=== PATIENT | female | born 1935 | race Caucasian/White ===

== ENCOUNTER 2017-08-24 15:43 | Emergency (ER) | payer MEDICARE, MEDICAID ==
[2017-08-24 15:43] VITALS: BMI 30.4
--- NOTE | 2017-08-24 17:05 | C.PDOC ---
History Of Present Illness 81 y/o female sent to ED by PMD for evaluation unknown reasons. Pt complaints of back pain, dizziness, and frequent falls. Patient is a poor historian. Denies urinary symptoms, headache, chest pain, shortness of breath, or fever. Time Seen by Provider: 08/24/17 16:28 Chief Complaint (Nursing): Medical Clearance History Per: Patient History/Exam Limitations: no limitations Onset/Duration Of Symptoms: Days Current Symptoms Are (Timing): Still Present Reports Recently: Treated By A Physician Recent travel outside of the [place]: No Additional History Per: Patient Past Medical History Reviewed: Historical Data, Nursing Documentation, Vital Signs Vital Signs: Last Vital Signs Temp 98.5 F 08/24/17 20:10 Pulse 74 08/24/17 20:10 Resp 18 08/24/17 20:10 BP 148/68 08/24/17 20:10 Pulse Ox 98 08/24/17 20:10 - Medical History PMH: Arthritis, HTN, Hypercholesterolemia Denies: Chronic Kidney Disease Comment Only: Anemia (hgb is low 9.5) Surgical History: Denies: Pacemaker - [facility] Procedures ANESTH INJECT-SPIN CANAL (06/03/15) HOME MANAGEMENT TREATMENT (06/15/16) INJECT STEROID (06/03/15) LUMBOSAC SPINE X-RAY NEC (06/03/15) ROM & JT MOBILITY TREATMENT OF MUSCULOSK LOW BACK/LE (06/15/16) SPINAL CANAL INJECT NEC (06/03/15) Family History: States: Unknown Family Hx - Social History Hx Tobacco Use: No Hx Alcohol Use: No Hx Substance Use: No - Immunization History Hx Tetanus Toxoid Vaccination: No Hx Influenza Vaccination: No Hx Pneumococcal Vaccination: No Review Of Systems Except As Marked, All Systems Reviewed And Found Negative. Constitutional: Negative for: Fever, Chills Cardiovascular: Negative for: Chest Pain, Palpitations Respiratory: Negative for: Cough, Shortness of Breath Gastrointestinal: Negative for: Nausea, Vomiting, Abdominal Pain Genitourinary: Negative for: Dysuria, Frequency, Hematuria Musculoskeletal: Positive for: Back Pain. Negative for: Neck Pain Neurological: Positive for: Dizziness. Negative for: Weakness, Numbness, Headache Physical Exam - Physical Exam Appears: Non-toxic, No Acute Distress Skin: Normal Color, Warm, Dry Head: Atraumatic, Normacephalic Eye(s): bilateral: Normal Inspection Nose: Normal Oral Mucosa: Dry Neck: Supple Chest: Symmetrical Cardiovascular: Rhythm Regular, No Murmur Respiratory: Normal Breath Sounds, No Rales, No Rhonchi, No Wheezing Gastrointestinal/Abdominal: Soft, Tenderness (RUQ, (+)Mack's), No Guarding, No Rebound Back: No CVA Tenderness, No Vertebral Tenderness, No Paraspinal Tenderness Extremity: Normal ROM Neurological/Psych: Oriented x3, Normal Speech ED Course And Treatment - Laboratory Results Result Diagrams: 08/24/17 18:54 08/24/17 18:54 O2 Sat by Pulse Oximetry: 98 (RA) Pulse Ox Interpretation: Normal Progress Note: Blood work ordered and reviewed. Disposition - Disposition Disposition: HOME/ ROUTINE Disposition Time: 19:20 Condition: GOOD Additional Instructions: Thank you for letting us take care of you today. Your provider was Dr. Munoz. You were treated for abnormal blood work. The emergency medical care you received today was directed at your acute symptoms. If you were prescribed any medication, please fill it and take as directed. It may take several days for your symptoms to resolve. Return to the Emergency Department if your symptoms worsen, do not improve, or if you have any other problems. Please contact your doctor or call one of the physicians/clinics you have been referred to that are listed on the Patient Visit Information form that is included in your discharge packet. Bring any paperwork you were given at discharge with you along with any medications you are taking to your follow up visit. Our treatment cannot replace ongoing medical care by a primary care provider (PCP) outside of the emergency department. Thank you for allowing the [facility] team to be part of your care today. Follow up with your doctor in 2-3 days. Instructions: Chronic Kidney Disease (ED) - Clinical Impression Clinical Impression: Chronic kidney disease (CKD) - Scribe Statement The provider has reviewed the documentation as recorded by the Naboribkai Kiser All medical record entries made by the Naboribkai were at my direction and personally dictated by me. I have reviewed the chart and agree that the record accurately reflects my personal performance of the history, physical exam, medical decision making, and the department course for this patient. I have also personally directed, reviewed, and agree with the discharge instructions and disposition.
[2017-08-24 19:07] LABS: POTASSIUM 4.1 mmol/L (3.6-5.2)
[2017-08-24 19:09] LABS: ALB/GLOB RATIO 1.3 (1.0-2.1); BILIRUBIN,TOTAL 0.6 mg/dL (0.2-1.3); TOTAL PROTEIN 7.3 g/dL (6.3-8.3)
[2017-08-24 19:10] LABS: CALCIUM 9.8 mg/dl (8.6-10.4)
[2017-08-24 19:13] LABS: BASO % 0.4 % (0.0-2.0); EOS # 0.2 K/uL (0.0-0.7); EOS % 2.8 % (0.0-4.0); LYMPH # 2.2 K/uL (1.0-4.3); LYMPH % 31.2 % (20.0-40.0); MEAN CORPUSCULAR HEMOGLOBIN 30.8 pg (27.0-31.0); MEAN PLATELET VOLUME 12.1 fL (7.2-11.7); MONO # 0.4 K/uL (0.0-0.8); MONO % 5.8 % (0.0-10.0); NRBC % 0.1 % (0.0-2.0); RED CELL DISTRIBUTION WIDTH 16.3 % (11.5-14.5); WHITE BLOOD COUNT 7.2 K/uL (4.8-10.8)
[2017-08-24 19:16] VITALS: RESP 18
[2017-08-24 20:13] VITALS: BP 148/68; PULSE 74; TEMP 98.5; O2SAT 98
== END 2017-08-24 20:13 | disposition home or self-care (01) ==
LOC: C.ER 15:43
DX: I12.9 Hypertensive chronic kidney disease with stage 1 through stage 4 chronic kidney disease, or unspecified chronic kidney disease (principal); N18.9 Chronic kidney disease, unspecified; E78.00 Pure hypercholesterolemia, unspecified; M19.90 Unspecified osteoarthritis, unspecified site

== ENCOUNTER 2017-08-31 16:00 | Inpatient (IN) | payer MEDICARE, MEDICAID ==
[2017-08-31 16:00] VITALS: BMI 30.4
[2017-08-31 17:43] LABS: BASO % 0.6 % (0.0-2.0); EOS # 0.2 K/uL (0.0-0.7); EOS % 3.7 % (0.0-4.0); HEMATOCRIT 29.4 % (34.0-47.0); LYMPH # 1.8 K/uL (1.0-4.3); LYMPH % 27.5 % (20.0-40.0); MEAN CELL VOLUME 87.7 fL (81.0-99.0); MEAN CORPUSCULAR HEMOGLOBIN 29.6 pg (27.0-31.0); MEAN CORPUSCULAR HGB CONC 33.7 g/dL (33.0-37.0); MONO # 0.4 K/uL (0.0-0.8); MONO % 5.6 % (0.0-10.0); NRBC % 0.1 % (0.0-2.0); RED CELL DISTRIBUTION WIDTH 16.3 % (11.5-14.5); WHITE BLOOD COUNT 6.7 K/uL (4.8-10.8)
[2017-08-31 17:52] LABS: POTASSIUM 4.2 mmol/L (3.6-5.2)
[2017-08-31 17:54] LABS: BILIRUBIN,TOTAL 0.6 mg/dL (0.2-1.3)
[2017-08-31 17:55] LABS: ALB/GLOB RATIO 1.4 (1.0-2.1); TOTAL PROTEIN 7.2 g/dL (6.3-8.3)
[2017-08-31 17:56] LABS: CALCIUM 9.5 mg/dl (8.6-10.4)
[2017-08-31 18:09] LABS: TROPONIN I 0.029 ng/mL (0.00-0.120)
[2017-08-31] MEDS ORDERED: Sodium Chloride 0.9% 1,000 ML IV ONE (18:21)
--- NOTE | 2017-08-31 18:47 | RAD ---
PROCEDURE: CHEST RADIOGRAPH, 1 VIEW HISTORY: Renal failure COMPARISON: 06/12/2016 FINDINGS: LUNGS: Clear. PLEURA: No pneumothorax or pleural fluid seen. CARDIOVASCULAR: Normal. OSSEOUS STRUCTURES: No significant abnormalities. VISUALIZED UPPER ABDOMEN: Normal. OTHER FINDINGS: None. IMPRESSION: No active disease.
[2017-08-31] MEDS ORDERED: Sodium Chloride 0.9% 1,000 ML ONE (19:04)
[2017-08-31 19:06] LABS: RBC URINE < 1 /hpf (0-3); URINE BACTERIA RARE (<OCC); URINE BILIRUBIN NEGATIVE (NEGATIVE); URINE BLOOD NEGATIVE (NEGATIVE); URINE COLOR Straw (YELLOW); URINE GLUCOSE (UA) NORMAL (Normal); URINE KETONE NEGATIVE (NEGATIVE); URINE LEUKOCYTE ESTERASE NEG Leu/uL (Negative); URINE PROTEIN NEGATIVE (NEGATIVE); URINE UROBILINOGEN NORMAL mg/dL (0.2-1.0); WBC URINE < 1 /hpf (0-5)
--- NOTE | 2017-08-31 19:38 | C.PDOC ---
History Of Present Illness Pt was instructed by her Medical Accounting Clerk Dr. Bobo to come to the ED in order to be admitted for worsening renal function. Pt was seen in this ED on 2016 but was erroneously discharged home. Pt was instructed to return to the ED again today. Time Seen by Provider: 08/31/17 16:45 Chief Complaint (Nursing): Abnormal Labs History Per: Patient, Family (Son) Onset/Duration Of Symptoms: Days Current Symptoms Are (Timing): Still Present Severity: Moderate Reports Recently: Treated By A Physician Additional History Per: Prior Records Past Medical History Reviewed: Historical Data, Nursing Documentation, Vital Signs Vital Signs: Last Vital Signs Temp 97.6 F 08/31/17 16:03 Pulse 86 08/31/17 16:03 Resp 18 08/31/17 16:03 BP 143/97 H 08/31/17 16:03 Pulse Ox 100 08/31/17 16:03 - Medical History PMH: Anemia (hgb is low 9.5), Arthritis, HTN, Hypercholesterolemia, Chronic Kidney Disease - [facility] Procedures ANESTH INJECT-SPIN CANAL (06/03/15) HOME MANAGEMENT TREATMENT (06/15/16) INJECT STEROID (06/03/15) LUMBOSAC SPINE X-RAY NEC (06/03/15) ROM & JT MOBILITY TREATMENT OF MUSCULOSK LOW BACK/LE (06/15/16) SPINAL CANAL INJECT NEC (06/03/15) Family History: States: Unknown Family Hx - Social History Hx Tobacco Use: No Hx Alcohol Use: No Hx Substance Use: No - Immunization History Hx Tetanus Toxoid Vaccination: No Hx Influenza Vaccination: No Hx Pneumococcal Vaccination: No Review Of Systems Except As Marked, All Systems Reviewed And Found Negative. Constitutional: Positive for: Weakness, Malaise. Negative for: Fever Cardiovascular: Negative for: Chest Pain Respiratory: Negative for: Cough, Shortness of Breath, Hemoptysis Gastrointestinal: Negative for: Vomiting, Abdominal Pain Genitourinary: Negative for: Dysuria, Hematuria Musculoskeletal: Negative for: Neck Pain Skin: Negative for: Rash Neurological: Negative for: Weakness, Numbness Physical Exam - Physical Exam Appears: No Acute Distress Skin: Normal Color, Warm, Dry Head: Atraumatic, Normacephalic Eye(s): bilateral: PERRL, EOMI Oral Mucosa: Dry Neck: Normal ROM, Supple Cardiovascular: Rhythm Regular Respiratory: Normal Breath Sounds, No Accessory Muscle Use Gastrointestinal/Abdominal: Soft, No Tenderness Back: No CVA Tenderness Extremity: Normal ROM Neurological/Psych: Oriented x3, Normal Motor, Normal Sensation ED Course And Treatment - Laboratory Results Result Diagrams: 08/31/17 17:34 08/31/17 17:34 Lab Interpretation: Abnormal Interpretation Of Abnormal: Elevated BUN/Cr. Anemia. ECG: Interpreted By Me, Viewed By Me ECG Rhythm: Sinus Rhythm ECG Interpretation: No Acute Changes Rate From EC O2 Sat by Pulse Oximetry: 100 Pulse Ox Interpretation: Normal - Radiology CXR: Viewed By Me, Read By Radiologist CXR Interpretation: Yes: No Acute Disease - Physician Consult Information Physician Contacted: Therese Hamilton (Renal) Outcome Of Conversation: She is covering Dr. Bobo. She wants pt to be admitted and they will consult. Progress - Interventions Interventions:: Observation, Intravenous fluid - Data Reviewed Data Reviewed: Lab, Diagnostic imaging, EKG, Old records - Continuity of Care Discussed patient case with:: Patient, Family-HIPPA compliant, ED Nurse, On- call PMD-pt unassigned Discussed pt. case with healthcare economics consultant/specialty: Nephrology - Patient Plan Patient Plan: Admission Disposition Discussed With : Ross Schultz Comment: He accepted pt on hospitalist service as pt's PMD is Dr. Ahmadi. Doctor Will See Patient In The: Hospital Counseled Patient/Family Regarding: Studies Performed, Diagnosis - Disposition Disposition: HOSPITALIZED Disposition Time: 19:41 Condition: SERIOUS - Clinical Impression Clinical Impression: Uremia, Worsening renal function
--- NOTE | 2017-08-31 19:43 | CP.PCM.HP ---
<Lpue Melendez - Last Filed: 08/31/17 20:32> History of Present Illness - History of Present Illness History of Present Illness: Medicine Note for Hospitalist Service CC: Sent in by kidney doctor HPI: [id number] with PMHx of CKD Stage 4, HTN, HLD, and Chronic LBP presents to the ED after being counseled by her executive vice president business development. Patient follows with Dr. Bobo as an outpatient. She had recent blood work 2-3 weeks ago and was told to come to the hospital due to her worsening kidney function. Patient admits to fatigue, weakness, swelling in her lower extremities bilaterally. Denied fever, chills, headache, SOB, chest pain, abdominal pain, n/v/d/c, or urinary symptoms. PMHx: CKD Stage 4, HTN, HLD, Chronic LBP PSHx: Denied Meds: As per MAR, reviewed All: NKDA SHx: Denied any tobacco, alcohol, or illicit drug use FHx: Unremarkable PMD: Dr. Ahmadi Nephro: Dr. Bobo Present on Admission - Present on Admission Any Indicators Present on Admission: No Past Patient History - Past Medical History & Family History Past Medical History?: Yes - Past Social History Smoking Status: Never Smoked - CARDIAC Hx Hypercholesterolemia: Yes Hx Hypertension: Yes - PULMONARY Hx Respiratory Disorders: No - NEUROLOGICAL Hx Paralysis: No - HEENT Hx HEENT Problems: No - RENAL Hx Chronic Kidney Disease: Yes - ENDOCRINE/METABOLIC Hx Endocrine Disorders: No - HEMATOLOGICAL/ONCOLOGICAL Hx Anemia: Yes (hgb is low 9.5) - INTEGUMENTARY Hx Dermatological Problems: No - MUSCULOSKELETAL/RHEUMATOLOGICAL Hx Arthritis: Yes - GENITOURINARY/GYNECOLOGICAL Hx Genitourinary Disorders: No - PSYCHIATRIC Hx Substance Use: No - SURGICAL HISTORY Hx Surgeries: No - ANESTHESIA Hx Anesthesia: No Meds Allergies/Adverse Reactions: Allergies Allergy/AdvReac Type Severity Reaction Status Date / Time No Known Allergies Allergy Verified 08/31/17 16:06 Physical Exam - Constitutional Appears: No Acute Distress - Head Exam Head Exam: NORMAL INSPECTION, NORMOCEPHALIC - Eye Exam Eye Exam: EOMI, Normal appearance, PERRL Pupil Exam: NORMAL ACCOMODATION - ENT Exam ENT Exam: Mucous Membranes Moist, Normal Exam - Respiratory Exam Respiratory Exam: Clear to Auscultation Bilateral, NORMAL BREATHING PATTERN. absent: Decreased Breath Sounds, Wheezes - Cardiovascular Exam Cardiovascular Exam: REGULAR RHYTHM, RRR, +S1, +S2 - GI/Abdominal Exam GI & Abdominal Exam: Normal Bowel Sounds, Soft. absent: Distended, Tenderness - Rectal Exam Rectal Exam: Deferred - Extremities Exam Extremities exam: Positive for: normal inspection, pedal edema (+1), pedal pulses present. Negative for: tenderness - Neurological Exam Neurological exam: Alert, Oriented x3 - Psychiatric Exam Psychiatric exam: Normal Affect, Normal Mood - Skin Skin Exam: Dry, Intact, Normal Color, Warm Results - Vital Signs Recent Vital Signs: Last Vital Signs Temp 97.6 F 08/31/17 16:03 Pulse 86 08/31/17 16:03 Resp 18 08/31/17 16:03 BP 143/97 H 08/31/17 16:03 Pulse Ox 100 08/31/17 19:40 - Labs Result Diagrams: 08/31/17 17:34 08/31/17 17:34 Labs: Laboratory Results - last 24 hr 08/31/17 08/31/17 08/31/17 17:34 17:34 18:56 WBC 6.7 RBC 3.35 L Hgb 9.9 L Hct 29.4 L MCV 87.7 MCH 29.6 MCHC 33.7 RDW 16.3 H Plt Count 137 MPV 11.0 Neut % (Auto) 62.6 Lymph % (Auto) 27.5 Hartley % (Auto) 5.6 Eos % (Auto) 3.7 Baso % (Auto) 0.6 Neut # 4.2 Lymph # 1.8 Hartley # 0.4 Eos # 0.2 Baso # 0.0 Sodium 138 Potassium 4.2 Chloride 101 Carbon Dioxide 26 Anion Gap 16 BUN 80 H Creatinine 3.0 H Est GFR ( Amer) 18 Est GFR (Non-Af Amer) 15 Random Glucose 82 Calcium 9.5 Total Bilirubin 0.6 AST 37 H ALT 28 Alkaline Phosphatase 66 Troponin I 0.0290 NT-Pro-B Natriuret Pep 881 Total Protein 7.2 Albumin 4.2 Globulin 3.0 Albumin/Globulin Ratio 1.4 Urine Color Straw Urine Clarity Clear Urine pH 5.0 Ur Specific [place] 1.010 Urine Protein Negative Urine Glucose (UA) Normal Urine Ketones Negative Urine Blood Negative Urine Nitrate Negative Urine Bilirubin Negative Urine Urobilinogen Normal Ur Leukocyte Esterase Neg Urine WBC (Auto) < 1 Urine RBC (Auto) < 1 Ur Squamous Epith Cells < 1 Urine Bacteria Rare Assessment & Plan - Assessment and Plan (Free Text) Plan: Stage 4 Chronic Kidney Disease * Nephrology consulted- Dr. Hamilton - help appreciated * Baseline creatine 2.0, with GFR - 20-30s * Currently creatine 3.0 with GFR 15-20s * Continued home medications: Renvela 800mg PO ACTID Anemia of Chronic Disease * 2/2 to CKD * Baseline hemoglobin is 9-10 * Currently stable, continue to monitor * F/U anemia workup Hx HTN * ECHO (03/2016): LVEF 80% with mild MR, pulm HTN * Holter Monitor (03/2016): performed 2/ syncope and dizziness - NSR with moments of bradycardia. Short runs of atrial tachycardia at 102 * HHD * Continued home medications: Coreg 25mg PO BID, Cozaar 50mg PO daily Hx HLD * Continued home medications: Lovasa, Crestor 5mg PO QHS * F/U Lipid panel, hga1c Hx of Gout * Continued home medications: Allopurinol 200mg PO daily Prophylactic Measures * GI PPX: Protonix 40mg PO daily * DVT PPX: Lovenox 30SC daily, SCDs * HHD * PT Al Goodson Dr., DO, PGY1 <Ross Schultz - Last Filed: 09/01/17 06:23> Results - Vital Signs Recent Vital Signs: Last Vital Signs Temp 97.9 F 09/01/17 00:10 Pulse 69 09/01/17 00:10 Resp 18 09/01/17 00:10 BP 149/68 09/01/17 00:10 Pulse Ox 98 09/01/17 00:10 - Labs Result Diagrams: 08/31/17 17:34 08/31/17 17:34 Labs: Laboratory Results - last 24 hr 08/31/17 08/31/17 08/31/17 17:34 17:34 18:56 WBC 6.7 RBC 3.35 L Hgb 9.9 L Hct 29.4 L MCV 87.7 MCH 29.6 MCHC 33.7 RDW 16.3 H Plt Count 137 MPV 11.0 Neut % (Auto) 62.6 Lymph % (Auto) 27.5 Hartley % (Auto) 5.6 Eos % (Auto) 3.7 Baso % (Auto) 0.6 Neut # 4.2 Lymph # 1.8 Hartley # 0.4 Eos # 0.2 Baso # 0.0 Sodium 138 Potassium 4.2 Chloride 101 Carbon Dioxide 26 Anion Gap 16 BUN 80 H Creatinine 3.0 H Est GFR ( Amer) 18 Est GFR (Non-Af Amer) 15 Random Glucose 82 Hemoglobin A1c Calcium 9.5 Total Bilirubin 0.6 AST 37 H ALT 28 Alkaline Phosphatase 66 Troponin I 0.0290 NT-Pro-B Natriuret Pep 881 Total Protein 7.2 Albumin 4.2 Globulin 3.0 Albumin/Globulin Ratio 1.4 Urine Color Straw Urine Clarity Clear Urine pH 5.0 Ur Specific [place] 1.010 Urine Protein Negative Urine Glucose (UA) Normal Urine Ketones Negative Urine Blood Negative Urine Nitrate Negative Urine Bilirubin Negative Urine Urobilinogen Normal Ur Leukocyte Esterase Neg Urine WBC (Auto) < 1 Urine RBC (Auto) < 1 Ur Squamous Epith Cells < 1 Urine Bacteria Rare Blood Type Antibody Screen 08/31/17 08/31/17 20:48 21:13 WBC RBC Hgb Hct MCV MCH MCHC RDW Plt Count MPV Neut % (Auto) Lymph % (Auto) Hartley % (Auto) Eos % (Auto) Baso % (Auto) Neut # Lymph # Hartley # Eos # Baso # Sodium Potassium Chloride Carbon Dioxide Anion Gap BUN Creatinine Est GFR ( Amer) Est GFR (Non-Af Amer) Random Glucose Hemoglobin A1c 5.2 Calcium Total Bilirubin AST ALT Alkaline Phosphatase Troponin I NT-Pro-B Natriuret Pep Total Protein Albumin Globulin Albumin/Globulin Ratio Urine Color Urine Clarity Urine pH Ur Specific [place] Urine Protein Urine Glucose (UA) Urine Ketones Urine Blood Urine Nitrate Urine Bilirubin Urine Urobilinogen Ur Leukocyte Esterase Urine WBC (Auto) Urine RBC (Auto) Ur Squamous Epith Cells Urine Bacteria Blood Type O POSITIVE Antibody Screen Negative Assessment & Plan - Date & Time Date: 09/01/17 (I have seen and examined the patient. I agree with the findings and plan of care as documented by Dr. Melendez. Patient with kidney disease. Consult to nephro. IVF. Monitor renal function and urinary output. Also with anemia. Check iron studies. Hemodynamically stable. Continue home meds for history of hypertension. Monitor for acute changes.) Time: 06:20 Attending/Attestation - Attestation I have personally seen and examined this patient.: Yes I have fully participated in the care of the patient.: Yes I have reviewed all pertinent clinical information: Yes
[2017-09-01 07:52] LABS: BASO % 0.8 % (0.0-2.0); EOS # 0.2 K/uL (0.0-0.7); EOS % 3.6 % (0.0-4.0); HEMATOCRIT 28.1 % (34.0-47.0); LYMPH # 1.6 K/uL (1.0-4.3); LYMPH % 28.1 % (20.0-40.0); MEAN CELL VOLUME 87.7 fL (81.0-99.0); MEAN CORPUSCULAR HEMOGLOBIN 29.8 pg (27.0-31.0); MEAN PLATELET VOLUME 11.7 fL (7.2-11.7); MONO # 0.4 K/uL (0.0-0.8); MONO % 7.6 % (0.0-10.0); NRBC % 0.1 % (0.0-2.0); WHITE BLOOD COUNT 5.8 K/uL (4.8-10.8)
[2017-09-01 08:07] LABS: CHLORIDE 105 mmol/L (98-107)
[2017-09-01 08:08] LABS: SODIUM 142 mmol/L (132-148)
[2017-09-01 08:09] LABS: IRON 56 ug/dL (37-170)
[2017-09-01 08:10] LABS: ALB/GLOB RATIO 1.2 (1.0-2.1); ALKALINE PHOSPHATASE 56 U/L (38-126); ALT/SGPT 28 U/L (9-52); AST/SGOT 30 U/L (14-36); BILIRUBIN,TOTAL 0.6 mg/dL (0.2-1.3); BLOOD UREA NITROGEN 62 mg/dL (7-17); CARBON DIOXIDE 26 mmol/L (22-30); CHOLESTEROL 97 mg/dL (0-199); GFR AFRICAN-AMERICAN 21; GLUCOSE,RANDOM 78 mg/dL (65-105); TOTAL PROTEIN 6.6 g/dL (6.3-8.3)
[2017-09-01 08:11] LABS: CALCIUM 9.4 mg/dl (8.6-10.4); PHOSPHOROUS 3.3 mg/dL (2.5-4.5)
[2017-09-01 08:16] VITALS: RESP 20
--- NOTE | 2017-09-01 08:40 | CP.PCM.PN ---
<Brittney Nelson V - Last Filed: 09/01/17 12:35> Objective - Vital Signs/Intake and Output Vital Signs (last 24 hours): Temp Pulse Resp BP Pulse Ox 98.0 F 64 20 151/58 H 99 09/01/17 08:15 09/01/17 08:15 09/01/17 08:15 09/01/17 10:17 09/01/17 08:15 - Medications Medications: Current Medications Allopurinol (Zyloprim) 200 mg PO DAILY [facility] Last Admin: 09/01/17 10:16 Dose: 200 mg Amlodipine Besylate (Norvasc) 5 mg PO DAILY [facility] Last Admin: 09/01/17 12:25 Dose: 5 mg Carvedilol (Coreg) 25 mg PO Q12 [facility] Last Admin: 09/01/17 10:17 Dose: 25 mg Famotidine (Pepcid) 20 mg PO DAILY [facility] Last Admin: 09/01/17 10:16 Dose: 20 mg Heparin Sodium (Porcine) (Heparin) 5,000 units SC Q12 [facility] Last Admin: 09/01/17 10:17 Dose: 5,000 units Sodium Chloride (Sodium Chloride 0.45%) 1,000 mls @ 75 mls/hr IV .[id number] [facility] Stop: 09/02/17 09:01 Last Admin: 09/01/17 10:16 Dose: 75 mls/hr [id number] Ethyl Esters (Lovaza) 2 gm PO BID [facility] Last Admin: 09/01/17 10:16 Dose: 2 gm Pneumococcal Polyvalent Vaccine (Pneumovax 23 Vaccine) 0.5 ml IM .ONCE ONE Stop: 09/02/17 10:01 Rosuvastatin Calcium (Crestor) 5 mg PO QPM [facility] Sevelamer Carbonate (Renvela) 800 mg PO ACTID [facility] Last Admin: 09/01/17 12:25 Dose: 800 mg - Labs Labs: 09/01/17 07:43 09/01/17 07:43 Attending/Attestation - Attestation I have personally seen and examined this patient.: Yes I have fully participated in the care of the patient.: Yes I have reviewed all pertinent clinical information, including history, physical exam and plan: Yes Notes (Text): Patient seen, examined, and case discussed with day-time resident. Patient reports she was sent in by her PMD, Dr Ahmadi for abnormal lab findings. Patient reports mild headache, denies chest pain, denies palpitations , denies shortness of breathe, denies abdominal pain, reports she feels nausea, reports swelling in the legs, and reports constipation. Will follow-up with nephrology and discharge planning when nephrology determines is stable for discharge. Order for renal US Monitor blood pressure Assessment/Plan 1) Acute on Chronic Kidney Disease * Stage 4 * Nephrology consulted- Dr. Hamilton/Dr. Veliz/Dr. Chapin/Dr. Henson, Dr. Bobo group - help appreciated * Baseline creatine 2.0, with GFR - 20-30s * Currently creatine 3.0 with GFR 15-20s * Continued home medications: Renvela 800mg PO ACTID * 09/01: Nephrology recommended * Hold Losartan; 1 more Liter of IV fluid, PTH, Phos, and vitamin D level * 1/2 NS 75 cc/hr X1 Liter per nephrology * Order for Renal US * Prior Renal US (04/18/16): no renal stone or hydronephrosis. Bilateral increased renal parnchymal echogencity, indicating medical renal disease. Thiny septated 3.3 X 3.0 X3.1 cm cyst along the upper pole of the left kidney, which has enlarged since 10/24/2013, when it measured 2/6 X2.2 X1.8c. No solid component appreciated 2) Anemia of Chronic Disease * 2/2 to CKD, likely * Baseline hemoglobin is 9-10 * Currently stable, continue to monitor * Iron: 56, TIBC: 20, Ferritin: 72.1, %Saturation: 21 3) Hypertension * ECHO (03/2016): LVEF 80% with mild MR, pulm HTN * Holter Monitor (03/2016): performed 2/2 syncope and dizziness - NSR with moments of bradycardia. Short runs of atrial tachycardia at 102 * Coreg 25mg PO Q12H Hold SBP<100 and HR<60 * Norvasc 5mg PO daily Hold SBP<100 * Hold Cozaar 50mg PO daily * Monitor vital signs 4) Lipid Disorder * Continued home medications: Lovaza and Crestor 5mg PO QHS * Lovaza 2gram PO BID * Crestor 5mg POqHS * Lipid Panel: T, Cholestrol:97, HDL; 40, LDL <30 5) Hx of Gout * Continued home medications: Allopurinol 200mg PO daily 6) History of Lumbar Stenosis and Lumbar radiculopathy * per view of the chart 7) Prophylactic Measures * Chest xray (08/31/17): no active disease * GI PPX: Pepcid 20mg PO daily * DVT PPX: Heparin 5000 units subq 12H * HHD * PT EVAL <Hussein Akins - Last Filed: 09/01/17 20:21> Subjective - Date & Time of Evaluation Date of Evaluation: 09/01/17 Time of Evaluation: 08:38 - Subjective Subjective: PGY-[address] Nelson's Service: Pt seen and examined at bedside. Nursing reports no acute events overnight. She denies chest pain, SOB, palpitations. She admits to urinating often overnight. She reports being told of her declining kidney function, and understands about possibility of dialysis. She reports tolerating diet without difficulty. Objective - Vital Signs/Intake and Output Vital Signs (last 24 hours): Temp Pulse Resp BP Pulse Ox 98.0 F 64 20 157/63 H 99 09/01/17 08:15 09/01/17 08:15 09/01/17 08:15 09/01/17 08:15 09/01/17 08:15 - Medications Medications: Current Medications Allopurinol (Zyloprim) 200 mg PO DAILY [facility] Carvedilol (Coreg) 25 mg PO BID [facility] Heparin Sodium (Porcine) (Heparin) 5,000 units SC Q12 [facility] Losartan Potassium (Cozaar) 50 mg PO DAILY [facility] [id number] Ethyl Esters (Lovaza) 2 gm PO BID [facility] Pantoprazole Sodium (Protonix Ec Tab) 40 mg PO DAILY [facility] Pneumococcal Polyvalent Vaccine (Pneumovax 23 Vaccine) 0.5 ml IM .ONCE ONE Stop: 09/02/17 10:01 Rosuvastatin Calcium (Crestor) 5 mg PO QPM [facility] Sevelamer Carbonate (Renvela) 800 mg PO ACTID [facility] Last Admin: 09/01/17 07:42 Dose: 800 mg - Labs Labs: 09/01/17 07:43 09/01/17 07:43 - Constitutional Appears: Non-toxic, No Acute Distress - Head Exam Head Exam: ATRAUMATIC, NORMOCEPHALIC - Eye Exam Eye Exam: EOMI. absent: Scleral icterus - ENT Exam ENT Exam: Mucous Membranes Moist - Neck Exam Neck Exam: Full ROM - Respiratory Exam Respiratory Exam: Clear to Ausculation Bilateral, NORMAL BREATHING PATTERN. absent: Rales, Rhonchi, Wheezes - Cardiovascular Exam Cardiovascular Exam: REGULAR RHYTHM, +S1, +S2 - GI/Abdominal Exam GI & Abdominal Exam: Soft, Normal Bowel Sounds. absent: Tenderness - Extremities Exam Extremities Exam: Normal Inspection. absent: Pedal Edema - Neurological Exam Neurological Exam: Alert, Awake, Oriented x3 - Psychiatric Exam Psychiatric exam: Normal Affect, Normal Mood - Skin Skin Exam: Normal Color, Warm Assessment and Plan - Assessment and Plan (Free Text) Plan: Acute on Chronic Kidney Disease * Stage 4 * Nephrology consulted- Dr. Hamilton/Dr. Veliz/Dr. Chapin/Dr. Henson, Dr. Bobo group - help appreciated * Baseline creatine 2.0, with GFR - 20-30s * Currently creatine 3.0 with GFR 15-20s * Continued home medications: Renvela 800mg PO ACTID * 09/01: Nephrology recommended * Hold Losartan; 1 more Liter of IV fluid, PTH, Phos, and vitamin D level * 1/2 NS 75 cc/hr X1 Liter per nephrology * Order for Renal US * Prior Renal US (04/18/16): no renal stone or hydronephrosis. Bilateral increased renal parnchymal echogencity, indicating medical renal disease. Thiny septated 3.3 X 3.0 X3.1 cm cyst along the upper pole of the left kidney, which has enlarged since 10/24/2013, when it measured 2/6 X2.2 X1.8c. No solid component appreciated Anemia of Chronic Disease * 2/2 to CKD, likely * Baseline hemoglobin is 9-10 * Currently stable, continue to monitor * Iron: 56, TIBC: 20, Ferritin: 72.1, %Saturation: 21 Hypertension * ECHO (03/2016): LVEF 80% with mild MR, pulm HTN * Holter Monitor (03/2016): performed 2/2 syncope and dizziness - NSR with moments of bradycardia. Short runs of atrial tachycardia at 102 * Coreg 25mg PO Q12H Hold SBP<100 and HR<60 * Norvasc 5mg PO daily Hold SBP<100 * Hold Cozaar 50mg PO daily * Monitor vital signs Lipid Disorder * Continued home medications: Lovaza and Crestor 5mg PO QHS * Lovaza 2gram PO BID * Crestor 5mg POqHS * Lipid Panel: T, Cholestrol:97, HDL; 40, LDL <30 Hx of Gout * Continued home medications: Allopurinol 200mg PO daily Prophylactic Measures * Chest xray (08/31/17): no active disease * GI PPX: Pepcid 20mg PO daily * DVT PPX: Heparin 5000 units subq 12H * HHD * PT TAO Akins PGY-2
--- NOTE | 2017-09-01 08:44 | CP.PCM.CON ---
History of Present Illness - History of Present Illness History of Present Illness: 81F with PMHx of CKD Stage 4, HTN, HLD, and Chronic LBP presents to the ED for abnormal labs. She had recent blood work and was told to come to the hospital due to her worsening kidney function. Patient admits to fatigue, weakness, swelling in her lower extremities bilaterally. Denied fever, chills, headache, SOB, chest pain, abdominal pain, n/v/d/c, or urinary symptoms. Patient states appetite is ok, no recent weight loss. No am nausea and no change in taste of food. Denies use of nsaids for back pain. No urinary complaints noted. Patient reports history of hypertension - does not check bp at home. Patients outpatient medical record reviewed. Patient reports known history of renal disease although stage unknown to her, does not know cause of renal disease, denies hematuria or porteinuria, no history of kidney stones or bladder dysfunction. PMHx: CKD Stage 4, HTN, HLD, Chronic LBP, vit d deficiency PSHx: Denied Meds: As per MAR, reviewed, outapatient meds include losartan, metolazone, paracalcitol, renvela All: NKDA SHx: Denied any tobacco, alcohol, or illicit drug use FHx: Unremarkable Review of Systems - Constitutional Constitutional: absent: Chills, Fever - EENT Eyes: absent: Change in Vision, Dry Eye Ears: absent: Decreased Hearing, Ear Pain Nose/Mouth/Throat: absent: Nasal Trauma, Nose Pain, Dry Mouth, Facial Pain - Cardiovascular Cardiovascular: absent: Chest Pain, Diaphoresis, Dyspnea on Exertion, Syncope - Respiratory Respiratory: absent: Cough, Dyspnea, Wheezing - Gastrointestinal Gastrointestinal: absent: Diarrhea, Dyspepsia, Nausea, Vomiting - Genitourinary Genitourinary: absent: Hematuria, Pyuria, Nocturia, Urinary Hesitance - Musculoskeletal Musculoskeletal: absent: Joint Swelling, Muscle Weakness, Stiffness - Integumentary Integumentary: absent: Dry Skin, Skin Ulcer, Sores - Neurological Neurological: absent: Dizziness, Numbness, Headaches - Psychiatric Psychiatric: absent: Confusion, Depression - Endocrine Endocrine: absent: Cold Intolorance, Heat Intolorance - Hematologic/Lymphatic Hematologic: absent: Easy Bleeding, Easy Bruising Past Patient History - Past Medical History & Family History Past Medical History?: Yes - Past Social History Smoking Status: Never Smoked - CARDIAC Hx Hypercholesterolemia: Yes Hx Hypertension: Yes - PULMONARY Hx Respiratory Disorders: No - NEUROLOGICAL Hx Paralysis: No - HEENT Hx HEENT Problems: No - RENAL Hx Chronic Kidney Disease: Yes - ENDOCRINE/METABOLIC Hx Endocrine Disorders: No - HEMATOLOGICAL/ONCOLOGICAL Hx Anemia: Yes (hgb is low 9.5) - INTEGUMENTARY Hx Dermatological Problems: No - MUSCULOSKELETAL/RHEUMATOLOGICAL Hx Arthritis: Yes Hx Falls: No - GENITOURINARY/GYNECOLOGICAL Hx Genitourinary Disorders: No - PSYCHIATRIC Hx Substance Use: No - SURGICAL HISTORY Hx Surgeries: No - ANESTHESIA Hx Anesthesia: No Meds Allergies/Adverse Reactions: Allergies Allergy/AdvReac Type Severity Reaction Status Date / Time No Known Allergies Allergy Verified 08/31/17 16:06 - Medications Medications: Current Medications Allopurinol (Zyloprim) 200 mg PO DAILY [facility] Carvedilol (Coreg) 25 mg PO BID [facility] Heparin Sodium (Porcine) (Heparin) 5,000 units SC Q12 [facility] Losartan Potassium (Cozaar) 50 mg PO DAILY [facility] [id number] Ethyl Esters (Lovaza) 2 gm PO BID [facility] Pantoprazole Sodium (Protonix Ec Tab) 40 mg PO DAILY [facility] Pneumococcal Polyvalent Vaccine (Pneumovax 23 Vaccine) 0.5 ml IM .ONCE ONE Stop: 09/02/17 10:01 Rosuvastatin Calcium (Crestor) 5 mg PO QPM [facility] Sevelamer Carbonate (Renvela) 800 mg PO ACTID [facility] Last Admin: 09/01/17 07:42 Dose: 800 mg Physical Exam - Constitutional Appears: Well, Non-toxic - Head Exam Head Exam: ATRAUMATIC, NORMAL INSPECTION - Eye Exam Eye Exam: EOMI, Normal appearance - ENT Exam ENT Exam: Mucous Membranes Moist, Normal Oropharynx - Neck Exam Neck exam: Negative for: Lymphadenopathy, Thyromegaly - Respiratory Exam Respiratory Exam: Clear to Auscultation Bilateral. absent: Rhonchi, Wheezes - Cardiovascular Exam Cardiovascular Exam: REGULAR RHYTHM, +S1, +S2. absent: JVD - GI/Abdominal Exam GI & Abdominal Exam: Normal Bowel Sounds, Soft - Extremities Exam Extremities exam: Negative for: pedal edema, tenderness - Neurological Exam Neurological exam: Alert, Oriented x3 - Psychiatric Exam Psychiatric exam: Normal Affect, Normal Mood - Skin Skin Exam: Dry, Intact Results - Vital Signs Recent Vital Signs: Last Vital Signs Temp 98.0 F 09/01/17 08:15 Pulse 64 09/01/17 08:15 Resp 20 09/01/17 08:15 BP 157/63 H 09/01/17 08:15 Pulse Ox 99 09/01/17 08:15 - Labs Result Diagrams: 09/01/17 07:43 09/01/17 07:43 Labs: Laboratory Results - last 24 hr 08/31/17 08/31/17 08/31/17 17:34 17:34 18:56 WBC 6.7 RBC 3.35 L Hgb 9.9 L Hct 29.4 L MCV 87.7 MCH 29.6 MCHC 33.7 RDW 16.3 H Plt Count 137 MPV 11.0 Neut % (Auto) 62.6 Lymph % (Auto) 27.5 Major % (Auto) 5.6 Eos % (Auto) 3.7 Baso % (Auto) 0.6 Neut # 4.2 Lymph # 1.8 Major # 0.4 Eos # 0.2 Baso # 0.0 Retic Count Sodium 138 Potassium 4.2 Chloride 101 Carbon Dioxide 26 Anion Gap 16 BUN 80 H Creatinine 3.0 H Est GFR ( Amer) 18 Est GFR (Non-Af Amer) 15 Random Glucose 82 Hemoglobin A1c Calcium 9.5 Phosphorus Magnesium Iron TIBC % Saturation Total Bilirubin 0.6 AST 37 H ALT 28 Alkaline Phosphatase 66 Troponin I 0.0290 NT-Pro-B Natriuret Pep 881 Total Protein 7.2 Albumin 4.2 Globulin 3.0 Albumin/Globulin Ratio 1.4 Triglycerides Cholesterol LDL Cholesterol Direct HDL Cholesterol Urine Color Straw Urine Clarity Clear Urine pH 5.0 Ur Specific [place] 1.010 Urine Protein Negative Urine Glucose (UA) Normal Urine Ketones Negative Urine Blood Negative Urine Nitrate Negative Urine Bilirubin Negative Urine Urobilinogen Normal Ur Leukocyte Esterase Neg Urine WBC (Auto) < 1 Urine RBC (Auto) < 1 Ur Squamous Epith Cells < 1 Urine Bacteria Rare Blood Type Antibody Screen 08/31/17 08/31/17 09/01/17 20:48 21:13 07:43 WBC RBC Hgb Hct MCV MCH MCHC RDW Plt Count MPV Neut % (Auto) Lymph % (Auto) Major % (Auto) Eos % (Auto) Baso % (Auto) Neut # Lymph # Major # Eos # Baso # Retic Count Sodium Potassium Chloride Carbon Dioxide Anion Gap BUN Creatinine Est GFR ( Amer) Est GFR (Non-Af Amer) Random Glucose Hemoglobin A1c 5.2 Calcium Phosphorus Magnesium Iron 56 TIBC 270 % Saturation 21 Total Bilirubin AST ALT Alkaline Phosphatase Troponin I NT-Pro-B Natriuret Pep Total Protein Albumin Globulin Albumin/Globulin Ratio Triglycerides Cholesterol LDL Cholesterol Direct HDL Cholesterol Urine Color Urine Clarity Urine pH Ur Specific [place] Urine Protein Urine Glucose (UA) Urine Ketones Urine Blood Urine Nitrate Urine Bilirubin Urine Urobilinogen Ur Leukocyte Esterase Urine WBC (Auto) Urine RBC (Auto) Ur Squamous Epith Cells Urine Bacteria Blood Type O POSITIVE Antibody Screen Negative 09/01/17 09/01/17 09/01/17 07:43 07:43 07:43 WBC 5.8 RBC 3.21 L Hgb 9.6 L Hct 28.1 L MCV 87.7 MCH 29.8 MCHC 34.0 RDW 16.0 H Plt Count 138 MPV 11.7 Neut % (Auto) 59.9 Lymph % (Auto) 28.1 Major % (Auto) 7.6 Eos % (Auto) 3.6 Baso % (Auto) 0.8 Neut # 3.5 Lymph # 1.6 Major # 0.4 Eos # 0.2 Baso # 0.0 Retic Count 2.3 H Sodium 142 Potassium 4.0 Chloride 105 Carbon Dioxide 26 Anion Gap 15 BUN 62 H Creatinine 2.6 H Est GFR ( Amer) 21 Est GFR (Non-Af Amer) 18 Random Glucose 78 Hemoglobin A1c Calcium 9.4 Phosphorus 3.3 Magnesium 2.0 Iron TIBC % Saturation Total Bilirubin 0.6 AST 30 ALT 28 Alkaline Phosphatase 56 Troponin I NT-Pro-B Natriuret Pep Total Protein 6.6 Albumin 3.6 Globulin 3.0 Albumin/Globulin Ratio 1.2 Triglycerides 140 Cholesterol 97 LDL Cholesterol Direct < 30 HDL Cholesterol 40 Urine Color Urine Clarity Urine pH Ur Specific [place] Urine Protein Urine Glucose (UA) Urine Ketones Urine Blood Urine Nitrate Urine Bilirubin Urine Urobilinogen Ur Leukocyte Esterase Urine WBC (Auto) Urine RBC (Auto) Ur Squamous Epith Cells Urine Bacteria Blood Type Antibody Screen 09/01/17 07:43 WBC RBC Hgb Hct MCV MCH MCHC RDW Plt Count MPV Neut % (Auto) Lymph % (Auto) Major % (Auto) Eos % (Auto) Baso % (Auto) Neut # Lymph # Major # Eos # Baso # Retic Count Sodium Potassium Chloride Carbon Dioxide Anion Gap BUN Creatinine Est GFR ( Amer) Est GFR (Non-Af Amer) Random Glucose Hemoglobin A1c Calcium Phosphorus Magnesium Iron TIBC % Saturation 21 Total Bilirubin AST ALT Alkaline Phosphatase Troponin I NT-Pro-B Natriuret Pep Total Protein Albumin Globulin Albumin/Globulin Ratio Triglycerides Cholesterol LDL Cholesterol Direct HDL Cholesterol Urine Color Urine Clarity Urine pH Ur Specific [place] Urine Protein Urine Glucose (UA) Urine Ketones Urine Blood Urine Nitrate Urine Bilirubin Urine Urobilinogen Ur Leukocyte Esterase Urine WBC (Auto) Urine RBC (Auto) Ur Squamous Epith Cells Urine Bacteria Blood Type Antibody Screen Assessment & Plan - Assessment and Plan (Free Text) Assessment: Acute kidney injury Chronic kidney disease stage 4 Hypertensive nephrosclerosis 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
[2017-09-01 09:12] LABS: FOLATE > 20.0 ng/mL
[2017-09-01] MEDS ORDERED: Pantoprazole 40 mg EC Tab PO SCH (10:00)
[2017-09-01] MEDS ORDERED: Enoxaparin 30 mg Syringe SC SCH (10:00)
[2017-09-01] MEDS: Omega-3-Acid Ethyl Esters 1 GM Cap PO SCH ×2 (10:16→18:45)
[2017-09-01] MEDS: Sodium Chloride 0.45% 1,000 ML IV SCH ×2 (10:16→22:22)
--- NOTE | 2017-09-01 17:30 | US ---
PROCEDURE: Ultrasound of the Kidneys HISTORY: acute renal failure COMPARISON: None available. TECHNIQUE: Sonogram of the kidneys. FINDINGS: RIGHT KIDNEY: Measures: 8.7 x 3.7 x 3.8 cm. Increased echogenicity of the right kidney with mild lobulated contour but no focal mass. No renal calculus. No stone, solid mass lesion or hydronephrosis visualized. LEFT KIDNEY: Measures: 10.2 x 4.3 x 4.7 Cm. Mildly lobulated contour and slight increase in echogenicity. No stone, solid mass lesion or hydronephrosis visualized. There is a small 2.9 centimeter x 1.7 centimeter x 2 centimeter cyst seen in the upper pole the left kidney with thin septation. OTHER FINDINGS: Distal aorta was not adequately identified. No obvious ascites or adenopathy was seen. Bladder is partially distended without wall thickening or bladder calculus. IMPRESSION: No gross hydronephrosis. Mildly echogenic kidneys without solid mass. Left renal cyst.
--- NOTE | 2017-09-02 06:49 | CP.PCM.PN ---
<Brittney Nelson V - Last Filed: 09/02/17 10:00> Objective - Vital Signs/Intake and Output Vital Signs (last 24 hours): Temp Pulse Resp BP Pulse Ox 98 F 70 20 132/72 99 09/02/17 07:35 09/02/17 07:35 09/02/17 07:35 09/02/17 07:35 09/02/17 07:35 Intake and Output: 09/02/17 09/02/17 06:59 18:59 Intake Total 810 Balance 810 - Medications Medications: Current Medications Acetaminophen (Tylenol 325mg Tab) 650 mg PO Q6 PRN PRN Reason: Headache Allopurinol (Zyloprim) 200 mg PO DAILY [facility] Last Admin: 09/01/17 10:16 Dose: 200 mg Amlodipine Besylate (Norvasc) 5 mg PO DAILY [facility] Last Admin: 09/01/17 12:25 Dose: 5 mg Carvedilol (Coreg) 25 mg PO Q12 [facility] Last Admin: 09/01/17 22:21 Dose: 25 mg Cyclobenzaprine HCl (Flexeril) 5 mg PO STAT STA Stop: 09/02/17 09:59 Famotidine (Pepcid) 20 mg PO DAILY [facility] Last Admin: 09/01/17 10:16 Dose: 20 mg Heparin Sodium (Porcine) (Heparin) 5,000 units SC Q12 [facility] Last Admin: 09/01/17 22:22 Dose: 5,000 units [id number] Ethyl Esters (Lovaza) 2 gm PO BID [facility] Last Admin: 09/01/17 18:45 Dose: 2 gm Pneumococcal Polyvalent Vaccine (Pneumovax 23 Vaccine) 0.5 ml IM .ONCE ONE Stop: 09/02/17 10:01 Rosuvastatin Calcium (Crestor) 5 mg PO QPM [facility] Last Admin: 09/01/17 18:45 Dose: 5 mg Sevelamer Carbonate (Renvela) 800 mg PO ACTID [facility] Last Admin: 09/02/17 07:52 Dose: 800 mg - Labs Labs: 09/02/17 08:05 09/02/17 08:05 Attending/Attestation - Attestation I have personally seen and examined this patient.: Yes I have fully participated in the care of the patient.: Yes I have reviewed all pertinent clinical information, including history, physical exam and plan: Yes Notes (Text): Patient seen, examined, and case discussed with day-time resident. Patient reports headache controlled with tylenol, denies chest pain, denies palpitations, denies shortness of breathe, denies abdominal pain, denies nausea , and reports mild muscle spasm over lower lumbar. Patient ordered for Flexeril 5mg PO X1 given hx of lumbar stenosis and lumbar radiculopathy. Patient advised to get up out of bed and become more ambulatory. Will need to follow-up with nephrology if patient is stable from their perspective for possible discharge today. Renal US (09/01/17): No gross hydronephrosis. Mildly echogenic kidneys without solid mass. Left renal cyst. Blood pressure controlled Assessment/Plan 1) Acute on Chronic Kidney Disease * Stage 4 * Nephrology consulted- Dr. Hamilton/Dr. Veliz/Dr. Chapin/Dr. Henson, Dr. Bobo group - help appreciated * Baseline creatinine 2.0, with GFR - 20-30s * Currently creatinine 3.0 with GFR 15-20s * Continued home medications: Renvela 800mg PO ACTID * 09/01: Nephrology recommended * Hold Losartan; 1 more Liter of IV fluid, PTH, Phos, and vitamin D level * 1/2 NS 75 cc/hr X1 Liter per nephrology * 09/02: pending nephrology recommendation * Vitamin D: 36.3; Phos: 2.7, Calcium: 9.1 * Renal US (09/01/17): No gross hydronephrosis. Mildly echogenic kidneys without solid mass. Left renal cyst. * Prior Renal US (04/18/16): no renal stone or hydronephrosis. Bilateral increased renal parnchymal echogencity, indicating medical renal disease. Thiny septated 3.3 X 3.0 X3.1 cm cyst along the upper pole of the left kidney, which has enlarged since 10/24/2013, when it measured 2/6 X2.2 X1.8c. No solid component appreciated 2) Anemia of Chronic Disease * 2/2 to CKD, likely * Baseline hemoglobin is 9-10 * Currently stable, continue to monitor * Iron: 56, TIBC: 20, Ferritin: 72.1, %Saturation: 21, Folate >20.0, B12: 505 3) Hypertension * ECHO (03/2016): LVEF 80% with mild MR, pulm HTN * Holter Monitor (03/2016): performed 2/2 syncope and dizziness - NSR with moments of bradycardia. Short runs of atrial tachycardia at 102 * Coreg 25mg PO Q12H Hold SBP<100 and HR<60 * Norvasc 5mg PO daily Hold SBP<100 * Hold Cozaar 50mg PO daily * Blood pressure controlled 4) Lipid Disorder * Continued home medications: Lovaza and Crestor 5mg PO QHS * Lovaza 2gram PO BID * Crestor 5mg POqHS * Lipid Panel: T, Cholestrol:97, HDL; 40, LDL <30 5) Hx of Gout * Continued home medications: Allopurinol 200mg PO daily 6) History of Lumbar Stenosis and Lumbar radiculopathy * per view of the chart 7) Prophylactic Measures * Chest xray (08/31/17): no active disease * GI PPX: Pepcid 20mg PO daily * DVT PPX: Heparin 5000 units subq 12H * HHD * PT EVAL: subacute rehab * OT eval: * Case management referral: subacute rehab Disposition: will need to follow-up with patient and family to see when patient is ready for discharge for subacute rehab or for home <Hussein Akins - Last Filed: 09/02/17 13:12> Subjective - Date & Time of Evaluation Date of Evaluation: 09/02/17 Time of Evaluation: 06:48 - Subjective Subjective: PGY-[address] Nelson's Service: Pt seen and examined at bedside. Nursing reports no acute events overnight. Patient states she feels better since admission, and denies chest pain, palpitations, SOB, abd pain, N/V/D/C. Pt reports headache yesterday resolved with tylenol. Pt reports history of chronic back pain due to lumbar stenosis. She denies loss of sensation in thighs, incontinence. Objective - Vital Signs/Intake and Output Vital Signs (last 24 hours): Temp Pulse Resp BP Pulse Ox 98.4 F 77 20 145/77 96 09/02/17 00:03 09/02/17 00:03 09/02/17 00:03 09/02/17 00:03 09/02/17 00:03 Intake and Output: 09/01/17 09/02/17 18:59 06:59 Intake Total 815 810 Balance 815 810 - Medications Medications: Current Medications Acetaminophen (Tylenol 325mg Tab) 650 mg PO Q6 PRN PRN Reason: Headache Allopurinol (Zyloprim) 200 mg PO DAILY [facility] Last Admin: 09/01/17 10:16 Dose: 200 mg Amlodipine Besylate (Norvasc) 5 mg PO DAILY [facility] Last Admin: 09/01/17 12:25 Dose: 5 mg Carvedilol (Coreg) 25 mg PO Q12 [facility] Last Admin: 09/01/17 22:21 Dose: 25 mg Famotidine (Pepcid) 20 mg PO DAILY [facility] Last Admin: 09/01/17 10:16 Dose: 20 mg Heparin Sodium (Porcine) (Heparin) 5,000 units SC Q12 [facility] Last Admin: 09/01/17 22:22 Dose: 5,000 units Sodium Chloride (Sodium Chloride 0.45%) 1,000 mls @ 75 mls/hr IV .[id number] [facility] Stop: 09/02/17 09:01 Last Admin: 09/01/17 22:22 Dose: 75 mls/hr [id number] Ethyl Esters (Lovaza) 2 gm PO BID [facility] Last Admin: 09/01/17 18:45 Dose: 2 gm Pneumococcal Polyvalent Vaccine (Pneumovax 23 Vaccine) 0.5 ml IM .ONCE ONE Stop: 09/02/17 10:01 Rosuvastatin Calcium (Crestor) 5 mg PO QPM [facility] Last Admin: 09/01/17 18:45 Dose: 5 mg Sevelamer Carbonate (Renvela) 800 mg PO ACTID [facility] Last Admin: 09/01/17 17:10 Dose: 800 mg - Labs Labs: 09/01/17 07:43 09/01/17 07:43 - Additional Findings Additional findings: - Constitutional Appears: Non-toxic, No Acute Distress - Head Exam Head Exam: ATRAUMATIC, NORMOCEPHALIC - Eye Exam Eye Exam: EOMI. absent: Scleral icterus - ENT Exam ENT Exam: Mucous Membranes Moist - Neck Exam Neck Exam: Full ROM - Respiratory Exam Respiratory Exam: Clear to Ausculation Bilateral, NORMAL BREATHING PATTERN. absent: Rales, Rhonchi, Wheezes - Cardiovascular Exam Cardiovascular Exam: REGULAR RHYTHM, +S1, +S2 - GI/Abdominal Exam GI & Abdominal Exam: Soft, Normal Bowel Sounds. absent: Tenderness - Extremities Exam Extremities Exam: Normal Inspection. absent: Pedal Edema - L3-L5 N SrRL - Neurological Exam Neurological Exam: Alert, Awake, Oriented x3 - Psychiatric Exam Psychiatric exam: Normal Affect, Normal Mood - Skin Skin Exam: Normal Color, Warm Assessment and Plan - Assessment and Plan (Free Text) Plan: Acute on Chronic Kidney Disease * Stage 4 * Nephrology consulted- Dr. Hamilton/Dr. Veliz/Dr. Chapin/Dr. Henson, Dr. Bobo group - help appreciated * Baseline creatine 2.0, with GFR - 20-30s * Currently creatine 3.0 with GFR 15-20s * Continued home medications: Renvela 800mg PO ACTID * 09/01: Nephrology recommended * Hold Losartan; 1 more Liter of IV fluid, PTH, Phos, and vitamin D level * Vit D: WNL, Phos: 2.7, PTH: f/u * 1/2 NS 75 cc/hr X1 Liter per nephrology * Order for Renal US * Prior Renal US (04/18/16): no renal stone or hydronephrosis. Bilateral increased renal parnchymal echogencity, indicating medical renal disease. Thiny septated 3.3 X 3.0 X3.1 cm cyst along the upper pole of the left kidney, which has enlarged since 10/24/2013, when it measured 2/6 X2.2 X1.8c. No solid component appreciated Anemia of Chronic Disease * 2/2 to CKD, likely * Baseline hemoglobin is 9-10 * Currently stable, continue to monitor * Iron: 56, TIBC: 20, Ferritin: 72.1, % Saturation: 21 Hypertension * ECHO (03/2016): LVEF 80% with mild MR, pulm HTN * Holter Monitor (03/2016): performed 2/2 syncope and dizziness - NSR with moments of bradycardia. Short runs of atrial tachycardia at 102 * Coreg 25mg PO Q12H Hold SBP<100 and HR<60 * Norvasc 5mg PO daily Hold SBP<100 * Hold Cozaar 50mg PO daily * Monitor vital signs Lipid Disorder * Continued home medications: Lovaza and Crestor 5mg PO QHS * Lovaza 2gram PO BID * Crestor 5mg POqHS * Lipid Panel: T, Cholestrol:97, HDL; 40, LDL <30 Hx of Gout * Continued home medications: Allopurinol 200mg PO daily Hx of lumbar stenosis * Flexeril 5mg PO once * Lumbar somatic dysfunction * Myofascial release, Muscle energy at bedside Prophylactic Measures * Chest xray (08/31/17): no active disease * GI PPX: Pepcid 20mg PO daily * DVT PPX: Heparin 5000 units subq 12H * HHD * PT EVAL Disposition: Will follow up with Nephro regarding discharge recommendation. Hussein Akins PGY-2
[2017-09-02 08:19] LABS: BASO % 0.6 % (0.0-2.0); EOS # 0.2 K/uL (0.0-0.7); HEMATOCRIT 28.4 % (34.0-47.0); LYMPH # 1.5 K/uL (1.0-4.3); LYMPH % 25.5 % (20.0-40.0); MEAN CELL VOLUME 88.2 fL (81.0-99.0); MEAN CORPUSCULAR HEMOGLOBIN 29.3 pg (27.0-31.0); MEAN CORPUSCULAR HGB CONC 33.2 g/dL (33.0-37.0); MEAN PLATELET VOLUME 11.2 fL (7.2-11.7); MONO # 0.4 K/uL (0.0-0.8); MONO % 6.9 % (0.0-10.0); NRBC % 0.1 % (0.0-2.0); RED CELL DISTRIBUTION WIDTH 16.5 % (11.5-14.5)
[2017-09-02 08:38] LABS: BILIRUBIN,TOTAL 0.7 mg/dL (0.2-1.3); CALCIUM 9.1 mg/dl (8.6-10.4); PHOSPHOROUS 2.7 mg/dL (2.5-4.5); TOTAL PROTEIN 6.9 g/dL (6.3-8.3)
[2017-09-02 09:03] VITALS: TEMP 98
[2017-09-02] MEDS ORDERED: Influenza Vaccine 60 mcg/0.5 mL SYR (4YR UP) IM ONE (10:00)
[2017-09-02] MEDS ORDERED: Pneumococcal 23-Valent Vaccine IM ONE (10:00)
[2017-09-02] MEDS: Omega-3-Acid Ethyl Esters 1 GM Cap PO SCH ×2 (10:35→18:50)
--- NOTE | 2017-09-02 16:17 | CP.PCM.DIS ---
Provider - Provider Date of Admission: 08/31/17 19:42 Attending physician: Ross Schultz MD Primary care physician: Daiana Consults: Nephro: Jeramie Time Spent in preparation of Discharge (in minutes): 30 Diagnosis - Discharge Diagnosis (1) Acute on chronic renal failure Status: Acute Comment: See clinical course Hospital Course - Lab Results Lab Results: Micro Results 08/31/17 19:30 Urine Urine Culture - Final 10-50,000 CFU/ML. MULTIPLE SPECIES. PROBABLE CONTAMINATION. Most Recent Lab Values WBC 6.0 K/uL (4.8-10.8) 09/02/17 08:05 RBC 3.22 Mil/uL (3.80-5.20) L 09/02/17 08:05 Hgb 9.4 g/dL (11.0-16.0) L 09/02/17 08:05 Hct 28.4 % (34.0-47.0) L 09/02/17 08:05 MCV 88.2 fL (81.0-99.0) 09/02/17 08:05 MCH 29.3 pg (27.0-31.0) 09/02/17 08:05 MCHC 33.2 g/dL (33.0-37.0) 09/02/17 08:05 RDW 16.5 % (11.5-14.5) H 09/02/17 08:05 Plt Count 130 K/uL (130-400) 09/02/17 08:05 MPV 11.2 fL (7.2-11.7) 09/02/17 08:05 Neut % (Auto) 64.0 % (50.0-75.0) 09/02/17 08:05 Lymph % (Auto) 25.5 % (20.0-40.0) 09/02/17 08:05 [place] % (Auto) 6.9 % (0.0-10.0) 09/02/17 08:05 Eos % (Auto) 3.0 % (0.0-4.0) 09/02/17 08:05 Baso % (Auto) 0.6 % (0.0-2.0) 09/02/17 08:05 Neut # 3.8 K/uL (1.8-7.0) 09/02/17 08:05 Lymph # 1.5 K/uL (1.0-4.3) 09/02/17 08:05 [place] # 0.4 K/uL (0.0-0.8) 09/02/17 08:05 Eos # 0.2 K/uL (0.0-0.7) 09/02/17 08:05 Baso # 0.0 K/uL (0.0-0.2) 09/02/17 08:05 Retic Count 2.3 % (0.5-1.5) H 09/01/17 07:43 Sodium 138 mmol/L (132-148) 09/02/17 08:05 Potassium 4.0 mmol/L (3.6-5.2) 09/02/17 08:05 Chloride 104 mmol/L (98-107) 09/02/17 08:05 Carbon Dioxide 26 mmol/L (22-30) 09/02/17 08:05 Anion Gap 12 (10-20) 09/02/17 08:05 BUN 46 mg/dL (7-17) H 09/02/17 08:05 Creatinine 2.1 mg/dL (0.7-1.2) H 09/02/17 08:05 Est GFR ( Amer) 27 09/02/17 08:05 Est GFR (Non-Af Amer) 22 09/02/17 08:05 Random Glucose 83 mg/dL (65-105) 09/02/17 08:05 Hemoglobin A1c 5.2 % (4.2-6.5) 08/31/17 20:48 Calcium 9.1 mg/dl (8.6-10.4) 09/02/17 08:05 Phosphorus 2.7 mg/dL (2.5-4.5) 09/02/17 08:05 Magnesium 2.0 mg/dL (1.6-2.3) 09/02/17 08:05 Iron 56 ug/dL (37-170) 09/01/17 07:43 TIBC 270 ug/dL (250-450) 09/01/17 07:43 % Saturation 21 (20-55) 09/01/17 07:43 Ferritin 72.1 ng/mL 09/01/17 07:43 Total Bilirubin 0.7 mg/dL (0.2-1.3) 09/02/17 08:05 AST 33 U/L (14-36) 09/02/17 08:05 ALT 30 U/L (9-52) 09/02/17 08:05 Alkaline Phosphatase 58 U/L (38-126) 09/02/17 08:05 Troponin I 0.0290 ng/mL (0.00-0.120) 08/31/17 17:34 NT-Pro-B Natriuret Pep 881 pg/mL (0-900) 08/31/17 17:34 Total Protein 6.9 g/dL (6.3-8.3) 09/02/17 08:05 Albumin 3.5 g/dL (3.5-5.0) 09/02/17 08:05 Globulin 3.4 gm/dL (2.2-3.9) 09/02/17 08:05 Albumin/Globulin Ratio 1.0 (1.0-2.1) 09/02/17 08:05 Triglycerides 140 mg/dL (0-149) 09/01/17 07:43 Cholesterol 97 mg/dL (0-199) 09/01/17 07:43 LDL Cholesterol Direct < 30 mg/dL (0-129) 09/01/17 07:43 HDL Cholesterol 40 mg/dL (30-70) 09/01/17 07:43 Vitamin B12 505 pg/mL (239-931) 09/01/17 07:43 25-OH Vitamin D Total 36.3 NG/ML (30.0-100.0) 09/01/17 14:09 Folate > 20.0 ng/mL 09/01/17 07:43 Urine Color Straw (YELLOW) 08/31/17 18:56 Urine Clarity Clear (Clear) 08/31/17 18:56 Urine pH 5.0 (5.0-8.0) 08/31/17 18:56 Ur Specific [place] 1.010 (1.003-1.030) 08/31/17 18:56 Urine Protein Negative mg/dL (NEGATIVE) 08/31/17 18:56 Urine Glucose (UA) Normal mg/dL (Normal) 08/31/17 18:56 Urine Ketones Negative mg/dL (NEGATIVE) 08/31/17 18:56 Urine Blood Negative (NEGATIVE) 08/31/17 18:56 Urine Nitrate Negative (NEGATIVE) 08/31/17 18:56 Urine Bilirubin Negative (NEGATIVE) 08/31/17 18:56 Urine Urobilinogen Normal mg/dL (0.2-1.0) 08/31/17 18:56 Ur Leukocyte Esterase Neg [place]/uL (Negative) 08/31/17 18:56 Urine WBC (Auto) < 1 /hpf (0-5) 08/31/17 18:56 Urine RBC (Auto) < 1 /hpf (0-3) 08/31/17 18:56 Ur Squamous Epith Cells < 1 /hpf (0-5) 08/31/17 18:56 Urine Bacteria Rare (<OCC) 08/31/17 18:56 Blood Type O POSITIVE 08/31/17 21:13 Antibody Screen Negative 08/31/17 21:13 - Hospital Course Hospital Course: On admission: 81F with PMHx of CKD Stage 4, HTN, HLD, and Chronic LBP presents to the ED after being counseled by her cnc machine operator. Patient follows with Dr. Bobo as an outpatient. She had recent blood work 2-3 weeks ago and was told to come to the hospital due to her worsening kidney function. Patient admits to fatigue, weakness, swelling in her lower extremities bilaterally. Denied fever, chills, headache, SOB, chest pain, abdominal pain, n/v/d/c, or urinary symptoms. Hospital course: Admitted on 08/31 to [facility] for worsening renal function by patients cnc machine operator Dr. Bobo. Baseline Creatine for patient is 2, creatine on admission up to 3. Pt was restarted on home meds for blood pressure with exception of Losartan which was held to high creatine. Pt was hydrated with NS. Renal US showed no stone or hydronephrosis, but small cyst was noted. Over course pt creatine improved with hydration. Pt was deemed stable for discharge with agreement of cnc machine operator, Dr. Chavez, with plan for her to follow up with Dr. Bobo as outpatient. Discharge Exam - Additional Findings Additional findings: - Constitutional Appears: Non-toxic, No Acute Distress - Head Exam Head Exam: ATRAUMATIC, NORMOCEPHALIC - Eye Exam Eye Exam: EOMI. absent: Scleral icterus - ENT Exam ENT Exam: Mucous Membranes Moist - Neck Exam Neck Exam: Full ROM - Respiratory Exam Respiratory Exam: Clear to Ausculation Bilateral, NORMAL BREATHING PATTERN. absent: Rales, Rhonchi, Wheezes - Cardiovascular Exam Cardiovascular Exam: REGULAR RHYTHM, +S1, +S2 - GI/Abdominal Exam GI & Abdominal Exam: Soft, Normal Bowel Sounds. absent: Tenderness - Extremities Exam Extremities Exam: Normal Inspection. absent: Pedal Edema - mallet finger noted on right hand - L3-L5 N SrRL - Neurological Exam Neurological Exam: Alert, Awake, Oriented x3 - Psychiatric Exam Psychiatric exam: Normal Affect, Normal Mood - Skin Skin Exam: Normal Color, Warm Discharge Plan - Follow Up Plan Condition: GOOD Disposition: HOME/ ROUTINE Additional Instructions: Pt stable for discharge per Dr. Nelson. Pt may resume her home medications. Patient should follow up with her PMD regarding the ch[facility] management of her hypertension. She should also follow up with her Cook Room Supervisor, Dr. Bobo, within one week to follow up her kidney function. Pt should return to the ED if her symptoms return or worsen. Pt was given these instructions in Mongolian, and she verbalized understanding, and consented. Prescribed Medications: NONE
[2017-09-02 16:20] VITALS: BP 131/64; PULSE 68; O2SAT 98
--- NOTE | 2017-09-03 12:39 | CARD ---
APPROVED REPORT EKG Measurement Heart [id number] <Conclusion> Normal sinus rhythm Normal ECG
== END 2017-09-02 19:00 | disposition home or self-care (01) | DRG 683 ==
LOC: C.ER 16:00 → C.9E 19:42 → C.3T 20:39
PROVIDERS: ADMIT Family Medicine; ATTEND Family Medicine
DX: N17.9 Acute kidney failure, unspecified (principal); I47.1 Supraventricular tachycardia; E86.9 Volume depletion, unspecified; I27.20 Pulmonary hypertension, unspecified; D63.1 Anemia in chronic kidney disease; E83.39 Other disorders of phosphorus metabolism; N18.4 Chronic kidney disease, stage 4 (severe); N25.81 Secondary hyperparathyroidism of renal origin; I12.9 Hypertensive chronic kidney disease with stage 1 through stage 4 chronic kidney disease, or unspecified chronic kidney disease; M19.90 Unspecified osteoarthritis, unspecified site; E78.00 Pure hypercholesterolemia, unspecified; M10.9 Gout, unspecified; E55.9 Vitamin D deficiency, unspecified; M48.061 Spinal stenosis, lumbar region without neurogenic claudication

== ENCOUNTER 2017-09-04 14:47 | Emergency (ER) | payer MEDICARE, MEDICAID ==
[2017-09-04 14:53] VITALS: BMI 29.7
[2017-09-04 14:54] VITALS: BP 172/72; PULSE 66; RESP 18; TEMP 97.4; O2SAT 99
--- NOTE | 2017-09-04 15:10 | C.PDOC ---
Chief Complaint (Nursing): Weakness/Neurological Deficit Past Medical History Vital Signs: Last Vital Signs Temp 97.4 F L 09/04/17 14:53 Pulse 66 09/04/17 14:53 Resp 18 09/04/17 14:53 BP 172/72 H 09/04/17 14:53 Pulse Ox 99 09/04/17 14:53 - Medical History PMH: Anemia (hgb is low 9.5), Arthritis (KNEE L; BACK), HTN, Hypercholesterolemia, Chronic Kidney Disease Surgical History: Denies: Pacemaker - [facility] Procedures ANESTH INJECT-SPIN CANAL (06/03/15) HOME MANAGEMENT TREATMENT (06/15/16) INJECT STEROID (06/03/15) LUMBOSAC SPINE X-RAY NEC (06/03/15) ROM & JT MOBILITY TREATMENT OF MUSCULOSK LOW BACK/LE (06/15/16) SPINAL CANAL INJECT NEC (06/03/15) Family History: States: Unknown Family Hx - Social History Hx Tobacco Use: No Hx Alcohol Use: No Hx Substance Use: No - Immunization History Hx Tetanus Toxoid Vaccination: No Hx Influenza Vaccination: No Hx Pneumococcal Vaccination: No ED Course And Treatment O2 Sat by Pulse Oximetry: 99 Disposition - Disposition
--- NOTE | 2017-09-04 15:29 | C.PDOC ---
Time Seen by Provider: 09/04/17 15:14 Chief Complaint (Nursing): Weakness/Neurological Deficit Past Medical History Vital Signs: Last Vital Signs Temp 97.4 F L 09/04/17 14:53 Pulse 66 09/04/17 14:53 Resp 18 09/04/17 14:53 BP 172/72 H 09/04/17 14:53 Pulse Ox 99 09/04/17 14:53 - Medical History PMH: Anemia (hgb is low 9.5), Arthritis (KNEE L; BACK), HTN, Hypercholesterolemia, Chronic Kidney Disease Surgical History: Denies: Pacemaker - [facility] Procedures ANESTH INJECT-SPIN CANAL (06/03/15) HOME MANAGEMENT TREATMENT (06/15/16) INJECT STEROID (06/03/15) LUMBOSAC SPINE X-RAY NEC (06/03/15) ROM & JT MOBILITY TREATMENT OF MUSCULOSK LOW BACK/LE (06/15/16) SPINAL CANAL INJECT NEC (06/03/15) Family History: States: Unknown Family Hx - Social History Hx Tobacco Use: No Hx Alcohol Use: No Hx Substance Use: No - Immunization History Hx Tetanus Toxoid Vaccination: No Hx Influenza Vaccination: No Hx Pneumococcal Vaccination: No ED Course And Treatment O2 Sat by Pulse Oximetry: 99 Progress - Data Reviewed Data Reviewed: Lab, Diagnostic imaging, EKG, Old records Disposition - Disposition Forms: [facility] (Cook Islander)
--- NOTE | 2017-09-04 15:33 | C.PDOC ---
History Of Present Illness 81 Y/O FEMALE, HISTORY OF CHRONIC KIDNEY DISEASE, ANEMIA, SENT TO ED BY PMD FOR POSSIBLE ANEMIA. PT RECENTLY DISCHARGED FROM HOSPITAL ON 09/02/17 (2 DAYS AGO). PT REPORTS DIZZINESS ON ARRIVAL, BUT STATES SAME CHRONIC DIZZINESS. DENIES PALPITATIONS, CHEST PAIN, NAUSEA, VOMITING, OR OTHER ASSOCIATED SYMPTOMS. PMD: DR. ALY REVIEW OF PRIOR RECORDS: 09/02: H&H Time Seen by Provider: 09/04/17 15:14 Chief Complaint (Nursing): Weakness/Neurological Deficit History Per: Patient History/Exam Limitations: no limitations Onset/Duration Of Symptoms: Days Current Symptoms Are (Timing): Still Present Reports Recently: Hospitalized Recent travel outside of the [place]: No Past Medical History Reviewed: Historical Data, Nursing Documentation, Vital Signs Vital Signs: Last Vital Signs Temp 97.4 F L 09/04/17 14:53 Pulse 66 09/04/17 14:53 Resp 18 09/04/17 14:53 BP 172/72 H 09/04/17 14:53 Pulse Ox 99 09/04/17 16:22 - Medical History PMH: Anemia (hgb is low 9.5), Arthritis (KNEE L; BACK), HTN, Hypercholesterolemia, Chronic Kidney Disease Surgical History: Denies: Pacemaker - [facility] Procedures ANESTH INJECT-SPIN CANAL (06/03/15) HOME MANAGEMENT TREATMENT (06/15/16) INJECT STEROID (06/03/15) LUMBOSAC SPINE X-RAY NEC (06/03/15) ROM & JT MOBILITY TREATMENT OF MUSCULOSK LOW BACK/LE (06/15/16) SPINAL CANAL INJECT NEC (06/03/15) Family History: States: Unknown Family Hx - Social History Hx Tobacco Use: No Hx Alcohol Use: No Hx Substance Use: No - Immunization History Hx Tetanus Toxoid Vaccination: No Hx Influenza Vaccination: No Hx Pneumococcal Vaccination: No Review Of Systems Except As Marked, All Systems Reviewed And Found Negative. Constitutional: Positive for: Weakness. Negative for: Fever, Chills Cardiovascular: Negative for: Chest Pain, Palpitations Respiratory: Negative for: Cough, Shortness of Breath, Wheezing Gastrointestinal: Negative for: Nausea, Vomiting Skin: Negative for: Rash Neurological: Positive for: Dizziness. Negative for: Weakness, Numbness, Headache Physical Exam - Physical Exam Appears: Non-toxic Skin: Warm, Dry Head: Atraumatic, Normacephalic Chest: Symmetrical Cardiovascular: Rhythm Regular Respiratory: Normal Breath Sounds, No Rales, No Rhonchi, No Wheezing Gastrointestinal/Abdominal: Bowel Sounds (NORMAL), Soft, No Tenderness, No Guarding, No Rebound Back: Normal Inspection Extremity: Normal ROM Neurological/Psych: Oriented x3, Normal Speech, Normal Cognition ED Course And Treatment - Laboratory Results Result Diagrams: 09/04/17 15:40 09/04/17 15:40 ECG: Interpreted By Me ECG Rhythm: Sinus Bradycardia Rate From EC (bpm) O2 Sat by Pulse Oximetry: 99 (RA) Pulse Ox Interpretation: Normal - Radiology CXR: Interpreted by Me CXR Interpretation: Yes: No Acute Disease Progress - Re-Evaluation Re-evaluation Note: 09/04/17 15:35 EKG, CXR, BLOODWORK 09/04/17 16:10 APPEARS COMFORTABLE NAD. H/H IMPROVED FROM PRIOR. DC - Data Reviewed Data Reviewed: Lab, Old records Disposition Counseled Patient/Family Regarding: Studies Performed, Diagnosis, Need For Followup - Disposition Referrals: YOUR,PMD [Other] Disposition: HOME/ ROUTINE Disposition Time: 16:11 Condition: IMPROVED Forms: [facility] (Slovak), General Discharge Instructions - Clinical Impression Clinical Impression: Normal exam - Scribe Statement The provider has reviewed the documentation as recorded by the Scribe SM All medical record entries made by the Scribe were at my direction and personally dictated by me. I have reviewed the chart and agree that the record accurately reflects my personal performance of the history, physical exam, medical decision making, and the department course for this patient. I have also personally directed, reviewed, and agree with the discharge instructions and disposition.
[2017-09-04 15:46] LABS: BASO # 0.1 K/uL (0.0-0.2); BASO % 1.5 % (0.0-2.0); EOS # 0.2 K/uL (0.0-0.7); EOS % 2.8 % (0.0-4.0); HEMATOCRIT 30.2 % (34.0-47.0); LYMPH # 1.8 K/uL (1.0-4.3); LYMPH % 25.7 % (20.0-40.0); MEAN CELL VOLUME 88.1 fL (81.0-99.0); MEAN CORPUSCULAR HEMOGLOBIN 29.8 pg (27.0-31.0); MEAN CORPUSCULAR HGB CONC 33.8 g/dL (33.0-37.0); MONO # 0.5 K/uL (0.0-0.8); NRBC % 0.1 % (0.0-2.0); RED CELL DISTRIBUTION WIDTH 16.6 % (11.5-14.5); WHITE BLOOD COUNT 7.1 K/uL (4.8-10.8)
[2017-09-04 15:54] LABS: POTASSIUM 4.4 mmol/L (3.6-5.2)
--- NOTE | 2017-09-04 15:55 | RAD ---
PROCEDURE: CHEST RADIOGRAPH, 1 VIEW HISTORY: ANEMIA COMPARISON: Portable chest 08/31/2017. FINDINGS: LUNGS: No interval acute infiltrate bilaterally. PLEURA: No pneumothorax or pleural fluid seen. CARDIOVASCULAR: Borderline cardiomegaly appears stable. No pulmonary vascular derangement identified. OSSEOUS STRUCTURES: No significant abnormalities. VISUALIZED UPPER ABDOMEN: Normal. OTHER FINDINGS: None. IMPRESSION: Stable borderline cardiomegaly. No acute pulmonary findings.
[2017-09-04 15:57] LABS: CALCIUM 9.6 mg/dl (8.6-10.4)
--- NOTE | 2017-09-05 13:38 | CARD ---
APPROVED REPORT EKG Measurement Heart [id number] <Conclusion> Sinus bradycardia with fusion complexes Otherwise normal ECG
== END 2017-09-04 16:33 | disposition home or self-care (01) ==
LOC: C.ER 14:47
DX: Z04.8 Encounter for examination and observation for other specified reasons (principal); I12.9 Hypertensive chronic kidney disease with stage 1 through stage 4 chronic kidney disease, or unspecified chronic kidney disease; N18.9 Chronic kidney disease, unspecified; D64.9 Anemia, unspecified

== ENCOUNTER 2018-03-26 10:56 | Emergency (ER) | payer MEDICARE, MEDICAID ==
[2018-03-26 10:58] VITALS: BMI 29.7
[2018-03-26 11:27] VITALS: RESP 16
[2018-03-26 12:56] LABS: BASO % 0.4 % (0.0-2.0); EOS # 0.1 K/uL (0.0-0.7); EOS % 1.1 % (0.0-4.0); HEMOGLOBIN 11.4 g/dL (11.0-16.0); LYMPH # 0.7 K/uL (1.0-4.3); LYMPH % 7.2 % (20.0-40.0); MEAN CELL VOLUME 86.3 fL (81.0-99.0); MEAN CORPUSCULAR HGB CONC 34.8 g/dL (33.0-37.0); MEAN PLATELET VOLUME 12.7 fL (7.2-11.7); MONO # 0.5 K/uL (0.0-0.8); MONO % 5.3 % (0.0-10.0); NEUT # 8.5 K/uL (1.8-7.0); NRBC % 0.1 % (0.0-2.0); PLATELET COUNT 138 K/uL (130-400); RBC 3.78 Mil/uL (3.80-5.20); RED CELL DISTRIBUTION WIDTH 14.3 % (11.5-14.5); WHITE BLOOD COUNT 9.8 K/uL (4.8-10.8)
[2018-03-26 13:08] LABS: ALB/GLOB RATIO 1.5 (1.0-2.1); ALBUMIN 4.6 g/dL (3.5-5.0); ALT/SGPT 11 U/L (9-52); AST/SGOT 33 U/L (14-36); BLOOD UREA NITROGEN 27 mg/dL (7-17); CALCIUM 9.9 mg/dl (8.6-10.4); GFR AFRICAN-AMERICAN 43; GFR NON-AFRICAN AMERICAN 36
[2018-03-26 13:19] LABS: B-TYPE NATRIURETIC PEPTIDE 752 pg/mL (0-900); CK-MB 1.48 ng/mL (0.0-3.38)
[2018-03-26 13:20] LABS: ANISOCYTOSIS SLIGHT; BANDS 1 % (0-2); BASOPHIL 1 % (0-2); EOSINOPHIL 1 % (0-4); LYMPHOCYTE 9 % (20-40); MONOCYTE 4 % (0-10); NEUTROPHIL 84 % (50-75); PLATELET ESTIMATE NORMAL (NORMAL); POIKILOCYTOSIS SLIGHT; TOTAL CELLS COUNTED 100
[2018-03-26 13:21] LABS: HYPOCHROMIC SLIGHT
--- NOTE | 2018-03-26 13:41 | CT ---
PROCEDURE: CT HEAD WITHOUT CONTRAST. HISTORY: headache dizziness COMPARISON: 04/16/2016 TECHNIQUE: Axial computed tomography images were obtained through the head/brain without intravenous contrast. Radiation dose: Total exam DLP = 769.33 mGy-cm. This CT exam was performed using one or more of the following dose reduction techniques: Automated exposure control, adjustment of the mA and/or kV according to patient size, and/or use of iterative reconstruction technique. FINDINGS: HEMORRHAGE: No intracranial hemorrhage. BRAIN: No mass effect or edema. No significant atrophy. Minimal chronic periventricular white matter ischemic change. No evidence of acute infarct. VENTRICLES: Unremarkable. No hydrocephalus. CALVARIUM: Unremarkable. PARANASAL SINUSES: Unremarkable as visualized. No significant inflammatory changes. MASTOID AIR CELLS: Unremarkable as visualized. No inflammatory changes. OTHER FINDINGS: None. IMPRESSION: No intracranial mass, hemorrhage or evidence of acute infarct.
[2018-03-26 14:34] LABS: SQUAMOUS EPITHIAL 2 /hpf (0-5); URINE BILIRUBIN NEGATIVE (NEGATIVE); URINE BLOOD 1+ (NEGATIVE); URINE CLARITY Clear (Clear); URINE COLOR Yellow (YELLOW); URINE GLUCOSE (UA) NORMAL (Normal); URINE LEUKOCYTE ESTERASE NEG Leu/uL (Negative); URINE PROTEIN NEGATIVE (NEGATIVE); URINE UROBILINOGEN NORMAL mg/dL (0.2-1.0)
[2018-03-26 15:14] VITALS: BP 159/69; PULSE 80; TEMP 99.2; O2SAT 97
--- NOTE | 2018-03-26 15:50 | C.PDOC ---
History Of Present Illness 82-year-old female, [facility] department [facility] with complaints of diffuse headache since this morning. She denies any nausea/ vomiting, numbness/weakness, slurred speech, facial droop, visual changes, back pain, neck pain, abdominal pain, or any other associated symptoms. No other complaints at this time. Time Seen by Provider: 03/26/18 11:48 Chief Complaint (Nursing): Dizziness/Lightheaded History Per: Patient History/Exam Limitations: no limitations Past Medical History Reviewed: Historical Data, Nursing Documentation, Vital Signs Vital Signs: Last Vital Signs Temp 99.2 F 03/26/18 15:14 Pulse 80 03/26/18 15:14 Resp 16 03/26/18 15:14 BP 159/69 H 03/26/18 15:14 Pulse Ox 97 03/26/18 15:53 - Medical History PMH: Anemia (hgb is low 9.5), Arthritis (KNEE L; BACK), HTN, Hypercholesterolemia, Chronic Kidney Disease Surgical History: Denies: Pacemaker - [facility] Procedures ANESTH INJECT-SPIN CANAL (06/03/15) HOME MANAGEMENT TREATMENT (06/15/16) INJECT STEROID (06/03/15) LUMBOSAC SPINE X-RAY NEC (06/03/15) ROM & JT MOBILITY TREATMENT OF MUSCULOSK LOW BACK/LE (06/15/16) SPINAL CANAL INJECT NEC (06/03/15) Family History: States: No Known Family Hx - Social History Hx Tobacco Use: No Hx Alcohol Use: No Hx Substance Use: No - Immunization History Hx Tetanus Toxoid Vaccination: No Hx Influenza Vaccination: No Hx Pneumococcal Vaccination: No Review Of Systems Constitutional: Negative for: Fever Cardiovascular: Negative for: Chest Pain Gastrointestinal: Negative for: Vomiting, Abdominal Pain Neurological: Positive for: Headache. Negative for: Weakness, Numbness, Incoordination, Change in Speech, Altered Mental Status Physical Exam - Physical Exam Appears: Non-toxic, No Acute Distress (mild pain) Skin: Normal Color, Warm, Dry, No Rash Head: Atraumatic, Normacephalic Eye(s): bilateral: Normal Inspection, PERRL, EOMI Nose: Normal Oral Mucosa: Moist Lips: Normal Appearing Neck: Normal ROM Chest: Symmetrical Cardiovascular: Rhythm Regular, No Murmur Respiratory: No Accessory Muscle Use, Rales (B/L bases) Extremity: Pedal Edema (+1, pitting of B/L legs), No Deformity ED Course And Treatment - Laboratory Results Result Diagrams: 03/26/18 12:51 03/26/18 12:51 O2 Sat by Pulse Oximetry: 97 (RA ) Pulse Ox Interpretation: Normal Disposition Counseled Patient/Family Regarding: Studies Performed, Diagnosis, Need For Followup, Rx Given - Disposition Referrals: Rom Ahmadi, DEMIAN, MERCHANDISE DISPLAYER [Advanced Practice Nurse] - Disposition: HOME/ ROUTINE Disposition Time: 15:50 Condition: STABLE Additional Instructions: FOLLOW UP WITH YOUR DOCTOR IN 1-2 DAYS USE TYLENOL NEEDED FOR PAIN RETURN TO EMERGENCY ROOM IF SYMPTOMS WORSEN SEGUIMIENTO CON WEEKS MDICO EN 1-2 MOREL USE TYLENOL SEGN SEA NECESARIO PARA DOLOR REGRESE AL ROWENA DE EMERGENCIA SI LOS SNTOMAS EMPEORAN Prescriptions: Acetaminophen [Tylenol 325mg tab] 650 mg PO Q6 PRN #30 tab PRN Reason: pain/fever Instructions: Muscle and Bone Pain (DC), Headache, Adult (DC) Forms: [employer] (Iraqi) Print Language: CZECH - Clinical Impression Clinical Impression: Myalgia, Arthralgia, Headache - Scribe Statement The provider has reviewed the documentation as recorded by the Scribe (Georgette Kim) All medical record entries made by the Scribe were at my direction and personally dictated by me. I have reviewed the chart and agree that the record accurately reflects my personal performance of the history, physical exam, medical decision making, and the department course for this patient. I have also personally directed, reviewed, and agree with the discharge instructions and disposition.
--- NOTE | 2018-03-27 19:14 | CARD ---
APPROVED REPORT EKG Measurement Heart [id number] [id number] <Conclusion> Normal sinus rhythm Normal ECG
== END 2018-03-26 16:12 | disposition home or self-care (01) ==
LOC: C.ER 10:56
DX: R51 Headache (principal); M79.1 Myalgia; M25.50 Pain in unspecified joint

== ENCOUNTER 2018-11-21 12:16 | Emergency (ER) | payer MEDICARE, MEDICAID ==
[2018-11-21 12:16] VITALS: BMI 29.7
[2018-11-21 13:21] LABS: BASO # 0.1 K/uL (0.0-0.2); BASO % 0.9 % (0.0-2.0); EOS # 0.2 K/uL (0.0-0.7); EOS % 3.1 % (0.0-4.0); HEMOGLOBIN 10.8 g/dL (11.0-16.0); MEAN CELL VOLUME 87.2 fL (81.0-99.0); MEAN CORPUSCULAR HEMOGLOBIN 29.5 pg (27.0-31.0); MEAN CORPUSCULAR HGB CONC 33.9 g/dL (33.0-37.0); MEAN PLATELET VOLUME 11.4 fL (7.2-11.7); MONO # 0.6 K/uL (0.0-0.8); MONO % 8.2 % (0.0-10.0); NEUT # 4.4 K/uL (1.8-7.0); NEUT % 60.8 % (50.0-75.0); RBC 3.67 Mil/uL (3.80-5.20); RED CELL DISTRIBUTION WIDTH 14.5 % (11.5-14.5); WHITE BLOOD COUNT 7.2 K/uL (4.8-10.8)
--- NOTE | 2018-11-21 13:24 | C.PDOC ---
History Of Present Illness 83 year old female with a PMHx of HTN presents to the ED complaining of 3 day history of cough, congestion, and sore throat. She states today the cough worsened, and is now bringing up phlegm. Patient has also developed pain with coughing and bodyaches. Today patient noticed her blood pressure was elevated, and she developed a headache. Patient was sent from [facility]. Time Seen by Provider: 11/21/18 12:40 Chief Complaint (Nursing): Dizziness/Lightheaded History Per: Patient History/Exam Limitations: no limitations Onset/Duration Of Symptoms: Days (x 3) Current Symptoms Are (Timing): Still Present Past Medical History Reviewed: Historical Data, Nursing Documentation, Vital Signs Vital Signs: Last Vital Signs Temp 97.4 F L 11/21/18 12:17 Pulse 77 11/21/18 12:17 Resp 16 11/21/18 12:17 BP 166/63 H 11/21/18 12:17 Pulse Ox 98 11/21/18 12:17 - Medical History PMH: Anemia (hgb is low 9.5), Arthritis (KNEE L; BACK), HTN, Hypercholesterolemia Denies: Chronic Kidney Disease (previously documented, pt denies) Surgical History: Denies: Pacemaker - [facility] Procedures ANESTH INJECT-SPIN CANAL (06/03/15) HOME MANAGEMENT TREATMENT (06/15/16) INJECT STEROID (06/03/15) LUMBOSAC SPINE X-RAY NEC (06/03/15) ROM & JT MOBILITY TREATMENT OF MUSCULOSK LOW BACK/LE (06/15/16) SPINAL CANAL INJECT NEC (06/03/15) Family History: States: Unknown Family Hx - Social History Hx Tobacco Use: No Hx Alcohol Use: No Hx Substance Use: No - Immunization History Hx Tetanus Toxoid Vaccination: No Hx Influenza Vaccination: Yes Hx Pneumococcal Vaccination: Yes Review Of Systems Constitutional: Positive for: Other (Bodyaches). Negative for: Fever ENT: Positive for: Nose Congestion Respiratory: Positive for: Cough, Sputum. Negative for: Shortness of Breath, Hemoptysis Gastrointestinal: Negative for: Vomiting, Abdominal Pain, Diarrhea Skin: Negative for: Rash Neurological: Positive for: Headache. Negative for: Weakness, Numbness, Dizziness Physical Exam - Physical Exam Appears: Non-toxic, No Acute Distress Skin: Warm, Dry, No Rash Head: Atraumatic, Normacephalic Eye(s): bilateral: Normal Inspection Ear(s): Bilateral: Normal (no erythema) Oral Mucosa: Moist Throat: Erythema (mild pharyngeal erythema), No Exudate, Other (hoarse voice) Neck: Normal ROM Chest: Symmetrical Cardiovascular: Rhythm Regular, No Murmur Respiratory: Normal Breath Sounds, No Rales, No Rhonchi, No Wheezing Extremity: Bilateral: Atraumatic, Normal Color And Temperature, Normal ROM Neurological/Psych: Oriented x3, Normal Speech ED Course And Treatment - Laboratory Results Result Diagrams: 11/21/18 13:06 11/21/18 13:06 ECG: Interpreted By Me, Viewed By Me ECG Rhythm: Sinus Rhythm ECG Interpretation: No Acute Changes Rate From EC (LAD) O2 Sat by Pulse Oximetry: 98 - Other Rad CXR X-Ray: Read By Radiologist Interpretation: Accession No. : [id number]. Patient Name / ID : VINSON / [id number]. Exam Date : 11/21/2018 13:20:23 ( Approved ). Study Co mment : Sex / Age : F / 83Y. Creator : Allan Blankenship. Dictator : Debra Hummel MD. Document Imaging Specialist : [place]rest[place] : Debra Hummel MD. Approver2 : Report Date : 11/21/2018 13:30:09. My Comment : . HISTORY: cough. COMPARISON: Chest x-ray performed 09/04/17. TECHNIQUE: Chest PA and lateral. FINDINGS: LUNGS: Moderate pulmonary venous congestion. Bibasilar atelectasis. Retrocardiac atelectasis or pneumonia. Please note that chest x-ray has limited sensitivity for the detection of pulmonary masses. PLEURA: No significant pleural effusion identified. No definite pneumothorax . CARDIOVASCULAR: Cardiomegaly. Atherosclerotic calcifications present. OSSEOUS STRUCTURES: Degenerative changes. Osseous demineralization. VISUALIZED UPPER ABDOMEN: Unremarkable. OTHER FINDINGS: None. IMPRESSION: Mild pulmonary venous congestion. Bibasilar atelectasis. Retrocardiac atelectasis or pneumonia. Cardiomegaly. Medical Decision Making Medical Decision Making: Impression: Flu-like symptoms Plan: --EKG --Blood work --Urinalysis --Flu swab --Chest x-ray --Tessalon Perles 100 mg PO Progress: Labs and imaging reviewed. Flu negative. Patient remains AAOx3, afebrile, resting comfortably, in no acute distress. No clinical signs of dehydration or sepsis Plan is to discharge patient home with prescriptions for prednisone and tessalon. Disposition Counseled Patient/Family Regarding: Diagnosis, Need For Followup, Rx Given - Disposition Referrals: Rom Ahmadi, DEMIAN, CRM FUNCTIONAL ANALYST [Advanced Practice Nurse] - Disposition: HOME/ ROUTINE Disposition Time: 14:07 Condition: STABLE Additional Instructions: Usted fue evaluado hoy por renan sntomas agudos. Los estudios realizados fueron normales. Tienes sharon infeccin viral. Traver los medicamentos segn sea necesario y puede michael cualquier medicamento para el dolor (Tylenol o Advil) segn sea necesario. Zelalem un seguimiento en la clnica o con arnett mdico para obtener ms atencin y manejo Prescriptions: Benzonatate [Tessalon Perles] 100 mg PO TID #30 sgl predniSONE [predniSONE Tab] 40 mg PO DAILY #10 tab Instructions: Viral Upper Respiratory Infection, Adult (DC) Forms: [employer] (Qatari) Print Language: IRAQI - POA Present On Arrival: None - Clinical Impression Clinical Impression: URI (upper respiratory infection) - PA / ORDER PROCESSOR / Resident Statement MD/DO has reviewed & agrees with the documentation as recorded. - Scribe Statement The provider has reviewed the documentation as recorded by the Naboribkai Shah All medical record entries made by the Scribe were at my direction and personally dictated by me. I have reviewed the chart and agree that the record accurately reflects my personal performance of the history, physical exam, medical decision making, and the department course for this patient. I have also personally directed, reviewed, and agree with the discharge instructions and disposition.
[2018-11-21 13:34] LABS: ALB/GLOB RATIO 1.6 (1.0-2.1); ALBUMIN 4.5 g/dL (3.5-5.0); CALCIUM 9.3 mg/dl (8.6-10.4)
--- NOTE | 2018-11-21 14:19 | RAD ---
HISTORY: cough COMPARISON: Chest x-ray performed 09/04/17 TECHNIQUE: Chest PA and lateral FINDINGS: LUNGS: Moderate pulmonary venous congestion. Bibasilar atelectasis. Retrocardiac atelectasis or pneumonia. Please note that chest x-ray has limited sensitivity for the detection of pulmonary masses. PLEURA: No significant pleural effusion identified. No definite pneumothorax . CARDIOVASCULAR: Cardiomegaly. Atherosclerotic calcifications present. OSSEOUS STRUCTURES: Degenerative changes. Osseous demineralization. VISUALIZED UPPER ABDOMEN: Unremarkable. OTHER FINDINGS: None. IMPRESSION: Mild pulmonary venous congestion. Bibasilar atelectasis. Retrocardiac atelectasis or pneumonia. Cardiomegaly.
[2018-11-21 14:56] LABS: SQUAMOUS EPITHIAL 1 /hpf (0-5); URINE BILIRUBIN NEGATIVE (NEGATIVE); URINE BLOOD NEGATIVE (NEGATIVE); URINE CLARITY Clear (Clear); URINE COLOR Yellow (YELLOW); URINE GLUCOSE (UA) NORMAL (Normal); URINE LEUKOCYTE ESTERASE NEG Leu/uL (Negative); URINE PROTEIN 1+ mg/dL (NEGATIVE); URINE UROBILINOGEN NORMAL mg/dL (0.2-1.0)
[2018-11-21 14:57] VITALS: BP 145/73; PULSE 70; RESP 18; TEMP 97.9
[2018-11-21 15:58] VITALS: O2SAT 98
--- NOTE | 2018-11-24 13:12 | CARD ---
APPROVED REPORT Date of service: 11/21/2018 EKG Measurement Heart [id number] [id number] <Conclusion> Normal sinus rhythm Left axis deviation Minimal voltage criteria for LVH, may be normal variant Abnormal ECG
== END 2018-11-21 15:11 | disposition home or self-care (01) ==
LOC: C.ER 12:16
DX: J06.9 Acute upper respiratory infection, unspecified (principal); I10 Essential (primary) hypertension; E78.00 Pure hypercholesterolemia, unspecified

== ENCOUNTER 2019-01-23 17:47 | Outpatient (CLI) | payer MEDICARE, MEDICAID | END 2019-01-23 17:48 | disposition home or self-care (01) | LOC: C.SLEEP 17:48 | DX: G47.33 Obstructive sleep apnea (adult) (pediatric) (principal) ==

== ENCOUNTER 2019-01-24 09:45 | Outpatient (CLI) | payer MEDICARE, MEDICAID | END 2019-01-24 09:46 | disposition home or self-care (01) | LOC: C.RADH 09:45 ==

== ENCOUNTER 2019-02-06 15:53 | Inpatient (IN) | payer MEDICARE, MEDICAID ==
[2019-02-06 15:53] VITALS: BMI 29.7
[2019-02-06] MEDS ORDERED: Sodium Chloride 0.9% 1,000 ML IV ONE (16:15)
[2019-02-06] MEDS ORDERED: Sodium Chloride 0.9% 1,000 ML ONE (16:35)
[2019-02-06 16:43] LABS: VENOUS BLOOD GAS BASE EXCESS 2.3 mmol/L (0.0-2.0); VENOUS BLOOD GAS PCO2 39 mmHg (40-60); VENOUS BLOOD GAS PO2 29 mm/Hg (30-55); VENOUS BLOOD PH 7.44 (7.32-7.43)
[2019-02-06 16:46] LABS: BASO % 0.1 % (0.0-2.0); HEMOGLOBIN 11.3 g/dL (11.0-16.0); LYMPH # 0.6 K/uL (1.0-4.3); LYMPH % 3.1 % (20.0-40.0); MEAN CELL VOLUME 85.8 fL (81.0-99.0); MEAN CORPUSCULAR HEMOGLOBIN 28.6 pg (27.0-31.0); MEAN CORPUSCULAR HGB CONC 33.3 g/dL (33.0-37.0); MEAN PLATELET VOLUME 12.4 fL (7.2-11.7); MONO # 0.8 K/uL (0.0-0.8); MONO % 4.1 % (0.0-10.0); NEUT # 17.1 K/uL (1.8-7.0); NEUT % 92.7 % (50.0-75.0); PLATELET COUNT 136 K/uL (130-400); RBC 3.94 Mil/uL (3.80-5.20); RED CELL DISTRIBUTION WIDTH 14.5 % (11.5-14.5); WHITE BLOOD COUNT 18.5 K/uL (4.8-10.8)
--- NOTE | 2019-02-06 16:49 | C.PDOC ---
History Of Present Illness 83 year old female, whose past medical history includes HTN and Hypercholesterolemia, presents to the ED for evaluation of fever which began today. Patient reports subjective fever, chills, generalized body aches, nausea and poor appetite which began today. She also reports feeling like she has to urinate more often than usual, but she usn't able to urinate much. Patient reports dysuria and seeing a slight amount of blood in her urine. She also complains of a headache. Patient reports back pain, but states this is chronic. She denies URI symptoms, vomiting, and rash. social history: denies tobacco use family history: no significant family history PMD: Dr. Rom Ahmadi Time Seen by Provider: 02/06/19 16:01 Chief Complaint (Nursing): Flu-like Symptoms History Per: Patient History/Exam Limitations: no limitations Onset/Duration Of Symptoms: Hrs Current Symptoms Are (Timing): Still Present Location Of Pain: Diffuse Myalgias, Headache Associated Symptoms: Fever, Chills, Nausea. denies: Vomiting Additional History Per: Patient Past Medical History Reviewed: Historical Data, Nursing Documentation, Vital Signs Vital Signs: Last Vital Signs Temp 101.2 F H 02/06/19 16:07 Pulse 89 02/06/19 16:07 Resp 14 02/06/19 16:07 BP 166/56 H 02/06/19 16:07 Pulse Ox 94 L 02/06/19 16:07 - Medical History PMH: Anemia, Arthritis (KNEE L; BACK), HTN, Hypercholesterolemia, Chronic Kidney Disease Surgical History: No Surg Hx Denies: Pacemaker - [facility] Procedures ANESTH INJECT-SPIN CANAL (06/03/15) HOME MANAGEMENT TREATMENT (06/15/16) INJECT STEROID (06/03/15) LUMBOSAC SPINE X-RAY NEC (06/03/15) ROM & JT MOBILITY TREATMENT OF MUSCULOSK LOW BACK/LE (06/15/16) SPINAL CANAL INJECT NEC (06/03/15) Family History: States: Unknown Family Hx - Social History Hx Tobacco Use: No Hx Alcohol Use: No Hx Substance Use: No - Immunization History Hx Tetanus Toxoid Vaccination: No Hx Influenza Vaccination: Yes Hx Pneumococcal Vaccination: Yes Review Of Systems Constitutional: Positive for: Fever, Chills, Other (poor appetite ) Respiratory: Negative for: Cough, Shortness of Breath, Sputum Gastrointestinal: Positive for: Nausea. Negative for: Vomiting Genitourinary: Positive for: Dysuria, Hematuria, Other (urinary urgency ) Musculoskeletal: Positive for: Other (generalized body aches ) Skin: Negative for: Rash Neurological: Positive for: Headache Physical Exam - Physical Exam Appears: Non-toxic, No Acute Distress, Other (appears tired, febrile ) Skin: Warm, Dry Head: Atraumatic, Normacephalic Eye(s): bilateral: PERRL, EOMI Nose: No Discharge Oral Mucosa: Dry Throat: No Erythema, No Exudate Neck: Normal ROM, Trachea Midline Lymphatic: No Adenopathy Cardiovascular: Rhythm Regular, No Murmur Respiratory: No Accessory Muscle Use, Rales (in left lower lung field ), No Wheezing Gastrointestinal/Abdominal: Soft, Tenderness (suprapubic ), No Mass, No Dis tention, No Guarding, No Rebound Back: Normal Inspection, No CVA Tenderness Extremity: Normal ROM, No Deformity Neurological/Psych: Oriented x3, Normal Motor, Normal Sensation ED Course And Treatment - Laboratory Results Result Diagrams: 02/06/19 16:38 02/06/19 16:38 Lab Results: pO2 29 mm/Hg (30-55) L 02/06/19 16:40 VBG pH 7.44 (7.32-7.43) H 02/06/19 16:40 VBG pCO2 39 mmHg (40-60) L 02/06/19 16:40 VBG HCO3 25.7 mmol/L 02/06/19 16:40 VBG Total CO2 27.7 mmol/L (22-28) 02/06/19 16:40 VBG O2 Sat (Calc) 64.8 % (40-65) 02/06/19 16:40 VBG Base Excess 2.3 mmol/L (0.0-2.0) H 02/06/19 16:40 VBG Potassium 3.4 mmol/L (3.6-5.2) L 02/06/19 16:40 Sodium 142.0 mmol/l (132-148) 02/06/19 16:40 Chloride 108.0 mmol/L (98-107) H 02/06/19 16:40 Glucose 110 mg/dl (65-105) H 02/06/19 16:40 Lactate 1.1 mmol/L (0.7-2.1) 02/06/19 16:40 O2 Sat by Pulse Oximetry: 94 - CT Scan/US CT-Abd & Pelv. Other Rad Studies (CT/US): Read By Radiologist, Radiology Report Reviewed CT/US Interpretation: EXAM: CT Abdomen and Pelvis without IV; but with oral contrast agent. CLINICAL HISTORY: Fever/lower abd pain. TECHNIQUE: Axial computed tomography images of the abdomen and pelvis with intravenous contrast. 0.00 mGy-cm. CONTRAST: Without. COMPARISON: Comparison is made to prior examination dated 10/28/2013. FINDINGS: LUNG BASES: Linear atelectasis is seen in the postero-lateral left lung base. No pleural effusions are seen. LIVER: Mild hepatomegaly. The liver measured an estimated 16.9 cm in the midc lavicular line. GALLBLADDER AND BILE DUCTS: The gallbladder appears within normal limits. No radioopaque gallstones are seen. No biliary ductal dilatation is evident. PANCREAS: Unremarkable. SPLEEN: Unremarkable. ADRENAL GLANDS: Unremarkable. KIDNEYS, URETERS, AND BLADDER: The kidneys appear within normal limits. A 2.1 cm cyst arises from the posterior lateral upper left renal pole.There is no hydronephrosis or hydroureter. No urinary calculi are seen. The urinary bladder is normal in size and configuration. STOMACH AND BOWEL: A small hiatal hernia is noted. Mucosal wall thickening is seen within the toth of the hiatal hernia and stomach; as well as the duodenum and ileal small bowel intestinal tract compatible with gastritis, duodenitis, and ileitis. No evidence of bowel obstruction. There is marked mucosal wall thickening throughout the colon and rectum with pericolonic/perirectal inflammatory stranding compatible with severe diffuse colitis/proctitis. Infectious or inflammatory etiologies are thought most likely. Diverticulosis coli is again seen predominantly in the right hemicolon without evidence of diverticulitis. APPENDIX: No evidence of acute appendicitis on CT examination. PERITONEUM: No free fluid. No free air. LYMPH NODES: No lymphadenopathy is evident. REPRODUCTIVE: Unremarkable as visualized. VASCULATURE: No evidence of abdominal aortic aneurysm. Moderate atherosclerotic vascular plaquing is present; including the LAD coronary artery. BONES: No aggressive appearing osseous lesion. No acute osseous pathology evident. There is evidence of degenerative disc disease at all levels of the lumbar spine. Retrograde spondylolisthesis of L5 in relationship to L4 is demonstrated. IMPRESSION: 1. Evidence of severe colitis/proctitis. 2. E vidence of gastritis, duodenitis and ileitis. 3. A small hiatal hernia is noted. 4. Diverticulosis coli predominantly in the right hemicolon. No acute diverticulitis detected. 5. Mild hepatomegaly. 6. Evidence of degenerative disc disease at all levels of the lumbar spine. Progress Note: Accession No. : [id number]. Patient Name / ID : VINSON / [id number]. Exam Date : 02/06/2019 16:36:23 ( Approved ). Study Comment : Sex / Age : F / 83Y. Creator : Jose L Wang MD. Dictator : Jose L Wang MD. Champagne Maker : [employer] : Jose L Wang MD. Approver2 : Report Date : 02/06/2019 16:51:02. My Comment : . Date of service: 02/06/2019. PROCEDURE: CHEST RADIOGRAPH, 1 VIEW. HISTORY: SOB. COMPARISON: 01/24/2019. FINDINGS: LUNGS: Clear. PLEURA: No pneumothorax or pleural fluid seen. CARDIOVASCULAR: No aortic atherosclerotic calcification present. Normal. OSSEOUS STRUCTURES: No significant abnormalities. VISUALIZED UPPER ABDOMEN: Normal. OTHER FINDINGS: None. IMPRESSION: No active disease. Medical Decision Making Medical Decision Making: Impression:febrile illness Differential diagnoses include but are not limited to: * UTI * cystitis * sepsis * dehydration * pneumonia * viral syndom/influenza-like illness Progress: Bloodwork, urinalysis, Flu swab, CXR, EKG ordered and reviewed. Tylenol PO and IV Fluids given. 19:20 - Patient's lab showed leukocytosis, urine was negative for infection. CXR showed no pneumonia. Ct abd/pelvis was ordered for possible intrabdominal infection. Name: MARGIE SIMPSON Exam Date: Feb 06, 2019 8:06:26 PM EDT Modality Type: CT\SR Description: CT - ABDOMEN AND PELVIS WITH CORONAL AND SAGITTAL MPRS Gender: F Laterality: Not applicable : 31 Referring Physician: Anat Bolaños EXAM: CT Abdomen and Pelvis without IV; but with oral contrast agent. CLINICAL HISTORY: Fever/lower abd pain TECHNIQUE: Axial computed tomography images of the abdomen and pelvis with intravenous contrast. 0.00 mGy-cm CONTRAST: Without COMPARISON: Comparison is made to prior examination dated 10/28/2013. FINDINGS: LUNG BASES: Linear atelectasis is seen in the postero-lateral left lung base. No pleural effusions are seen. LIVER: Mild hepatomegaly. The liver measured an estimated 16.9 cm in the midclavicular line. GALLBLADDER AND BILE DUCTS: The gallbladder appears within normal limits. No radioopaque gallstones are s een. No biliary ductal dilatation is evident. PANCREAS: Unremarkable. SPLEEN: Unremarkable. ADRENAL GLANDS: Unremarkable. KIDNEYS, URETERS, AND BLADDER: The kidneys appear within normal limits. A 2.1 cm cyst arises from the posterior lateral upper left renal pole.There is no hydronephrosis or hydroureter. No urinary calculi are seen. The urinary bladder is normal in size and configurat ion. STOMACH AND BOWEL: A small hiatal hernia is noted. Mucosal wall thickening is seen within the toth of the hiatal hernia and stomach; as well as the duodenum and ileal small bowel intestinal tract compatible with gastritis, duodenitis, and ileitis. No evidence of bowel obstruction. There is marked mucosal wall thickening throughout the colon and rectum with pericolonic/perirectal inflammatory stranding compatible with severe diffuse colitis/proctitis. Infectious or inflammatory etiologies are thought most likely. Diverticulosis coli is again seen predominantly in the right hemicolon without evidence of diverticulitis. APPENDIX: No evidence of acute appendicitis on CT examination. PERITONEUM: No free fluid. No free air. LYMPH NODES: No lymphadenopathy is evident. REPRODUCTIVE: Unremarkable as visualized. VASCULATURE: No evidence of abdominal aortic aneurysm. Moderate atherosclerotic vascular plaquing is present; including the LAD coronary artery. BONES: No aggressive appearing osseous lesion. No acute osseous pathology evident. There is evidence of degenerative disc disease at all levels of the lumbar spine. Retrograde spondylolisthesis of L5 in relationship to L4 is demonstrated. IMPRESSION: 1. Evidence of severe colitis/proctitis. 2. Evidence of gastritis, duodenitis and ileitis. 3. A small hiatal hernia is noted. 4. Diverticulosis coli predominantly in the right hemicolon. No acute diverticulitis detected. 5. Mild hepatomegaly. 6. Evidence of degenerative disc disease at all levels of the lumbar spine. Electronically signed on Feb 06, 2019 8:48:51 PM EDT by: Juanjo Olsen M.D., [place] Certified By [facility] Fellowship Trained MRI and CT Specialist 2100 IV antibiotics ordered. GIANLU[facility] who assumed care at this time. GIANLUCA pt and findings and plan of care. Disposition Counseled Patient/Family Regarding: Studies Performed, Diagnosis - Disposition Disposition: HOSPITALIZED Disposition Time: 21:00 Condition: FAIR - POA Present On Arrival: None - Clinical Impression Clinical Impression: Colitis, Proctitis
--- NOTE | 2019-02-06 16:54 | RAD ---
Date of service: 02/06/2019 PROCEDURE: CHEST RADIOGRAPH, 1 VIEW HISTORY: SOB COMPARISON: 01/24/2019 FINDINGS: LUNGS: Clear. PLEURA: No pneumothorax or pleural fluid seen. CARDIOVASCULAR: No aortic atherosclerotic calcification present. Normal. OSSEOUS STRUCTURES: No significant abnormalities. VISUALIZED UPPER ABDOMEN: Normal. OTHER FINDINGS: None. IMPRESSION: No active disease.
[2019-02-06 16:58] LABS: INR 1.1; PROTHROMBIN TIME 11.6 SECONDS (9.7-12.2)
[2019-02-06 17:01] LABS: ALB/GLOB RATIO 1.8 (1.0-2.1); ALBUMIN 4.6 g/dL (3.5-5.0); CALCIUM 10.2 mg/dl (8.6-10.4)
[2019-02-06 17:44] LABS: SQUAMOUS EPITHIAL 2 /hpf (0-5); URINE BILIRUBIN NEGATIVE (NEGATIVE); URINE BLOOD NEGATIVE (NEGATIVE); URINE CLARITY Clear (Clear); URINE COLOR Yellow (YELLOW); URINE GLUCOSE (UA) NORMAL (Normal); URINE LEUKOCYTE ESTERASE NEG Leu/uL (Negative); URINE PROTEIN NEGATIVE (NEGATIVE); URINE UROBILINOGEN NORMAL mg/dL (0.2-1.0)
[2019-02-06] MEDS ORDERED: Iohexol 240 (50 ml) PO STA (18:06)
[2019-02-06] MEDS ORDERED: Iohexol 240 (50 ml) ONE (18:15)
[2019-02-06 19:40] LABS: BANDS 8 % (0-2); LYMPHOCYTE 7 % (20-40); MONOCYTE 3 % (0-10); NEUTROPHIL 82 % (50-75); PLATELET ESTIMATE NORMAL (NORMAL); TOTAL CELLS COUNTED 100
[2019-02-06] MEDS ORDERED: Ciprofloxacin 400mg/200ml D5W 400 MG/200 ML BAG IV STA (20:58)
[2019-02-06] MEDS ORDERED: metroNIDAZOLE IV 500 mg/100 ml 500 MG/100 ML BAG ONE (21:08)
[2019-02-06] MEDS ORDERED: Ciprofloxacin 400mg/200ml D5W 400 MG/200 ML BAG IVPB ONE (21:08)
[2019-02-06] MEDS: metroNIDAZOLE IV 500 mg/100 ml 500 MG/100 ML BAG IV SCH (21:09)
[2019-02-06] MEDS: Dextrose 5%/0.45% NS 1,000 ML IV SCH (21:27)
[2019-02-06] MEDS ORDERED: Dextrose 5%/0.45% NS 1,000 ML IV ONE (21:35)
--- NOTE | 2019-02-06 23:51 | CP.PCM.HP ---
History of Present Illness - History of Present Illness History of Present Illness: 83 year old female, whose past medical history includes HTN and Hypercholesterolemia, presents to the ED for evaluation of fever which began today. Patient reports subjective fever, chills, generalized body aches, nausea and poor appetite which began today. She also reports feeling like she has to urinate more often than usual, but she usn't able to urinate much. Patient reports dysuria and seeing a slight amount of blood in her urine. She also complains of a headache. Patient reports back pain, CT SHOWED PANCOLITIS AND ILEITIS AND DIVERTICULOSIS Present on Admission - Present on Admission Any Indicators Present on Admission: No Review of Systems - Constitutional Constitutional: Headache, Malaise - EENT Eyes: absent: As Per HPI, Blind Spots, Blurred Vision, Change in Vision, Decreased Night Vision, Diplopia, Discharge, Dry Eye, Exophthalmos, Floaters, Irritation, Itchy Eyes, Loss of Peripheral Vision, Pain, Photophobia, Requires Corrective Lenses, Sees Flashes, Spots in Vision, Tunnel Vision, Other Visual Disturbances, Loss of Vision, Other Nose/Mouth/Throat: absent: As Per HPI, Epistaxis, Nasal Congestion, Nasal Discha rge, Nasal Obstruction, Nasal Trauma, Nose Pain, Post Nasal Drip, Sinus Pain, Sinus Pressure, Bleeding Gums, Change in Voice, Dental Pain, Dry Mouth, Dysphagia, Halitosis, Hoarsness, Lip Swelling, Mouth Lesions, Mouth Pain, Odynophagia, Sore Throat, Throat Swelling, Tongue Swelling, Facial Pain, Neck Pain, Neck Mass, Other - Cardiovascular Cardiovascular: absent: As Per HPI, Acrocyanosis, Chest Pain, Chest Pain at Rest, Chest Pain with Activity, Claudication, Diaphoresis, Dyspnea, Dyspnea on Exertion, Edema, Irregular Heart Rhythm, Pain Radiating to Arm/Neck/Jaw, Leg Edema, Leg Ulcers, Lightheadedness, Orthopnea, Palpitations, Paroxysmal Nocturnal Dyspnea, Pedal Edema, Radiating Pain, Rapid Heart Rate, Slow Heart Rate, Syncope, Other - Respiratory Respiratory: absent: As Per HPI, Cough, Dyspnea, Hemoptysis, Dyspnea on Exertion, Wheezing, Snoring, Stridor, Pain on Inspiration, Chest Congestion, Excessive Mucous Production, Change in Mucous Color, Pain with Coughing, Other - Gastrointestinal Gastrointestinal: Abdominal Pain, Bloating, Diarrhea, Loose Stools. absent: [place] Emesis, Melena, Vomiting - Genitourinary Genitourinary: Dysuria, Hematuria, Voiding Freq/Small Amts - Musculoskeletal Musculoskeletal: Back Pain - Neurological Neurological: absent: As Per HPI, Abnormal Gait, Abnormal Hearing, Abnormal Movements, Abnormal Speech, Behavioral Changes, Burning Sensations, Confusion, Convulsions, Disequilibrium, Dizziness, Numbness, Focal Weakness, Frequent Falls, Headaches, Lack of Coordination, Loss of Vision, Memory Loss, Paresthesia s, Radicular Pain, Restless Legs, Sensory Deficit, Syncope, Tingling, Tremor, Vertigo, Weakness, Other Visual Disturbances, Other Past Patient History - Past Medical History & Family History Past Medical History?: Yes - Past Social History Smoking Status: Never Smoked - CARDIAC Hx Hypercholesterolemia: Yes Hx Hypertension: Yes Hx Pacemaker: No - PULMONARY Hx Respiratory Disorders: No - NEUROLOGICAL Hx Paralysis: No - HEENT Hx HEENT Problems: No - RENAL Hx Chronic Kidney Disease: Yes - ENDOCRINE/METABOLIC Hx Endocrine Disorders: No - HEMATOLOGICAL/ONCOLOGICAL Hx Anemia: Yes - INTEGUMENTARY Hx Dermatological Problems: No - MUSCULOSKELETAL/RHEUMATOLOGICAL Hx Arthritis: Yes (KNEE L; BACK) - GENITOURINARY/GYNECOLOGICAL Hx Genitourinary Disorders: No - PSYCHIATRIC Hx Substance Use: No - SURGICAL HISTORY Hx Surgeries: No - ANESTHESIA Hx Anesthesia: No Meds Allergies/Adverse Reactions: Allergies Allergy/AdvReac Type Severity Reaction Status Date / Time tuberculin, purified protein Allergy Verified 02/06/19 16:14 deriva seafood Allergy Uncoded 02/06/19 16:14 Physical Exam - Constitutional Appears: Well - Eye Exam Eye Exam: EOMI, Normal appearance, PERRL - ENT Exam ENT Exam: Mucous Membranes Moist, Normal Exam - Neck Exam Neck exam: Positive for: Normal Inspection - Respiratory Exam Respiratory Exam: Clear to Auscultation Bilateral, NORMAL BREATHING PATTERN - Cardiovascular Exam Cardiovascular Exam: REGULAR RHYTHM - GI/Abdominal Exam GI & Abdominal Exam: Soft, Tenderness. absent: Guarding - Extremities Exam Extremities exam: Positive for: full ROM. Negative for: calf tenderness, pedal edema - Back Exam Back exam: absent: CVA tenderness (L), CVA tenderness (R) - Neurological Exam Neurological exam: Alert, CN II-XII Intact, Normal Gait, Oriented x3, Reflexes Normal Results - Vital Signs Recent Vital Signs: Last Vital Signs Temp 99.7 F H 02/06/19 22:19 Pulse 77 02/06/19 22:19 Resp 20 02/06/19 22:19 BP 149/66 02/06/19 22:19 Pulse Ox 94 L 02/06/19 22:21 - Labs Result Diagrams: 02/06/19 16:38 02/06/19 16:38 Labs: Laboratory Results - last 24 hr 02/06/19 02/06/19 02/06/19 16:15 16:38 16:38 WBC 18.5 H D RBC 3.94 Hgb 11.3 Hct 33.8 L MCV 85.8 MCH 28.6 MCHC 33.3 RDW 14.5 Plt Count 136 MPV 12.4 H Neut % (Auto) 92.7 H Lymph % (Auto) 3.1 L [place] % (Auto) 4.1 Eos % (Auto) 0.0 Baso % (Auto) 0.1 Neut # (Auto) 17.1 H Lymph # (Auto) 0.6 L [place] # (Auto) 0.8 Eos # (Auto) 0.0 Baso # (Auto) 0.0 Neutrophils % (Manual) 82 H Band Neutrophils % 8 H Lymphocytes % (Manual) 7 L Monocytes % (Manual) 3 Platelet Estimate Normal PT INR APTT pO2 VBG pH VBG pCO2 VBG HCO3 VBG Total CO2 VBG O2 Sat (Calc) VBG Base Excess VBG Potassium Glucose Lactate Sodium Potassium Chloride Carbon Dioxide Anion Gap BUN Creatinine Est GFR ( Amer) Est GFR (Non-Af Amer) POC Glucose (mg/dL) 128 H Random Glucose Calcium Total Bilirubin AST ALT Alkaline Phosphatase Total Protein Albumin Globulin Albumin/Globulin Ratio Lipase Venous Blood Potassium Urine Color Urine Clarity Urine pH Ur Specific [place] Urine Protein Urine Glucose (UA) Urine Ketones Urine Blood Urine Nitrate Urine Bilirubin Urine Urobilinogen Ur Leukocyte Esterase Urine WBC (Auto) Ur Squamous Epith Cells Influenza Typ A,B (EIA) Negative for flu a/b 02/06/19 02/06/19 02/06/19 16:38 16:38 16:40 WBC RBC Hgb Hct MCV MCH MCHC RDW Plt Count MPV Neut % (Auto) Lymph % (Auto) [place] % (Auto) Eos % (Auto) Baso % (Auto) Neut # (Auto) Lymph # (Auto) [place] # (Auto) Eos # (Auto) Baso # (Auto) Neutrophils % (Manual) Band Neutrophils % Lymphocytes % (Manual) Monocytes % (Manual) Platelet Estimate PT 11.6 INR 1.1 APTT 29 pO2 29 L VBG pH 7.44 H VBG pCO2 39 L VBG HCO3 25.7 VBG Total CO2 27.7 VBG O2 Sat (Calc) 64.8 VBG Base Excess 2.3 H VBG Potassium 3.4 L Glucose 110 H Lactate 1.1 Sodium 140 142.0 Potassium 3.6 Chloride 105 108.0 H Carbon Dioxide 24 Anion Gap 15 BUN 49 H Creatinine 2.1 H Est GFR ( Amer) 27 Est GFR (Non-Af Amer) 22 POC Glucose (mg/dL) Random Glucose 114 H Calcium 10.2 Total Bilirubin 1.0 AST 27 ALT 19 Alkaline Phosphatase 64 Total Protein 7.1 Albumin 4.6 Globulin 2.5 Albumin/Globulin Ratio 1.8 Lipase 98 Venous Blood Potassium 3.4 L Urine Color Urine Clarity Urine pH Ur Specific [place] Urine Protein Urine Glucose (UA) Urine Ketones Urine Blood Urine Nitrate Urine Bilirubin Urine Urobilinogen Ur Leukocyte Esterase Urine WBC (Auto) Ur Squamous Epith Cells Influenza Typ A,B (EIA) 02/06/19 17:21 WBC RBC Hgb Hct MCV MCH MCHC RDW Plt Count MPV Neut % (Auto) Lymph % (Auto) [place] % (Auto) Eos % (Auto) Baso % (Auto) Neut # (Auto) Lymph # (Auto) [place] # (Auto) Eos # (Auto) Baso # (Auto) Neutrophils % (Manual) Band Neutrophils % Lymphocytes % (Manual) Monocytes % (Manual) Platelet Estimate PT INR APTT pO2 VBG pH VBG pCO2 VBG HCO3 VBG Total CO2 VBG O2 Sat (Calc) VBG Base Excess VBG Potassium Glucose Lactate Sodium Potassium Chloride Carbon Dioxide Anion Gap BUN Creatinine Est GFR ( Amer) Est GFR (Non-Af Amer) POC Glucose (mg/dL) Random Glucose Calcium Total Bilirubin AST ALT Alkaline Phosphatase Total Protein Albumin Globulin Albumin/Globulin Ratio Lipase Venous Blood Potassium Urine Color Yellow Urine Clarity Clear Urine pH 5.0 Ur Specific [place] 1.010 Urine Protein Negative Urine Glucose (UA) Normal Urine Ketones Negative Urine Blood Negative Urine Nitrate Negative Urine Bilirubin Negative Urine Urobilinogen Normal Ur Leukocyte Esterase Neg Urine WBC (Auto) < 1 Ur Squamous Epith Cells 2 Influenza Typ A,B (EIA) Assessment & Plan (1) Colitis Status: Acute (2) Proctitis Status: Acute (3) Arthralgia Status: Acute (4) Chronic kidney disease (CKD) Status: Acute
[2019-02-07] MEDS: metroNIDAZOLE IV 500 mg/100 ml 500 MG/100 ML BAG IVPB SCH ×3 (04:16→21:00)
[2019-02-07 08:09] LABS: BASO % 0.1 % (0.0-2.0); EOS % 0.1 % (0.0-4.0); LYMPH # 1.1 K/uL (1.0-4.3); LYMPH % 6.4 % (20.0-40.0); MEAN CORPUSCULAR HEMOGLOBIN 29.3 pg (27.0-31.0); MEAN CORPUSCULAR HGB CONC 33.7 g/dL (33.0-37.0); MEAN PLATELET VOLUME 12.5 fL (7.2-11.7); MONO # 0.6 K/uL (0.0-0.8); MONO % 3.8 % (0.0-10.0); NEUT # 14.8 K/uL (1.8-7.0); NEUT % 89.6 % (50.0-75.0); NRBC % 0.1 % (0.0-2.0); RBC 3.15 Mil/uL (3.80-5.20); RED CELL DISTRIBUTION WIDTH 14.8 % (11.5-14.5); WHITE BLOOD COUNT 16.5 K/uL (4.8-10.8)
[2019-02-07 08:16] LABS: HEMOGLOBIN 9.3 g/dL (11.0-16.0); PLATELET COUNT 110 K/uL (130-400)
[2019-02-07 08:17] LABS: ALB/GLOB RATIO 1.4 (1.0-2.1); ALBUMIN 3.2 g/dL (3.5-5.0); CALCIUM 8.6 mg/dl (8.6-10.4)
--- NOTE | 2019-02-07 08:27 | CT ---
Date of service: 02/06/2019 PROCEDURE: CT Abdomen and Pelvis without intravenous contrast HISTORY: fever lower abdominal pain COMPARISON: None. TECHNIQUE: Technique. Contrast dose: Radiation dose: Total exam DLP = 573.08 mGy-cm. This CT exam was performed using one or more of the following dose reduction techniques: Automated exposure control, adjustment of the mA and/or kV according to patient size, and/or use of iterative reconstruction technique. FINDINGS: LOWER THORAX: Discoid atelectasis at the left base. Small hiatal hernia. Cardiomegaly. Coronary artery calcifications. LIVER: Unremarkable. No gross lesion or ductal dilatation. GALLBLADDER AND BILE DUCTS: Unremarkable. PANCREAS: Unremarkable. No gross lesion or ductal dilatation. SPLEEN: Unremarkable. ADRENALS: Unremarkable. No mass. KIDNEYS AND URETERS: Unremarkable. No hydronephrosis. No solid mass. VASCULATURE: Unremarkable. No aortic aneurysm. No aortic atherosclerotic calcification or mural plaque present. BOWEL: Severe mural thickening of the rectum consistent with proctitis/colitis with associated presacral edema and pericolonic fat infiltration. No obstruction.. APPENDIX: Unremarkable. Normal appendix. PERITONEUM: Unremarkable. No free fluid. No free air. LYMPH NODES: Unremarkable. No enlarged lymph nodes. BLADDER: Unremarkable. REPRODUCTIVE: Unremarkable. BONES: No acute fracture. OTHER FINDINGS: None. IMPRESSION: Severe mural thickening of the rectum consistent with proctitis/colitis with associated presacral edema and pericolonic fat infiltration. No obstruction..
[2019-02-07] MEDS: Dextrose 5%/0.45% NS 1,000 ML IV SCH ×2 (08:33→22:49)
[2019-02-07] MEDS: Omega-3-Acid Ethyl Esters 1 GM Cap PO SCH ×2 (09:19→17:52)
[2019-02-07] MEDS: Pantoprazole 40 mg EC Tab PO SCH (09:20)
[2019-02-07] MEDS: Ciprofloxacin 400mg/200ml D5W 400 MG/200 ML BAG IVPB SCH ×2 (09:22→22:32)
[2019-02-07 09:39] LABS: BANDS 6 % (0-2); LYMPHOCYTE 9 % (20-40); MONOCYTE 5 % (0-10); NEUTROPHIL 80 % (50-75); PLATELET ESTIMATE SLIGHTLY DECREASED (NORMAL); TOTAL CELLS COUNTED 100
[2019-02-07 09:40] LABS: ANISOCYTOSIS SLIGHT; GIANT PLATELETS PRESENT; HYPOCHROMIC SLIGHT; LARGE PLATELETS PRESENT; POIKILOCYTOSIS SLIGHT
--- NOTE | 2019-02-07 11:16 | CP.PCM.PN ---
Subjective - Date & Time of Evaluation Date of Evaluation: 02/07/19 Time of Evaluation: 11:14 - Subjective Subjective: CHIEF COMPLAINTS TODAY : DECREASE DIARRHEA GEN. WEAKNESS ROS. HEENT : N. Resp : No cough, wheezing ,pleuritic CP ,or hemoptysis Cardio : No anginal CP, PND, orthopnea, palpitation GI : No abd.pain, n/v ,diarrhea or GI bleeding . [employer] : No headache, vertigo, focal deficit. Musculoskel : No joint swelling , Derm : No rash Psych : Normal affect. Ext : No swelling ,calf pain PE. Pt. is alert awake in no distress. V.S As noted in the chart Head ,ear nose,throat and eyes : Normal. Neck : Supple with normal carotids. Lungs: Clear air entry. Heart : S1 & S2 normal with S4. No murmur. Abd : Soft tender with normal bowel sounds. Neuro : Moves all ext. with no localized deficit. Ext : No edema with intact pulses.Non tender calves Derm : No rashes or decubitus ulcer. LABS/RADIOLOGY: ASSESSMENT/PLAN : CONT IV AB AWAITING LAB Objective - Vital Signs/Intake and Output Vital Signs (last 24 hours): Temp Pulse Resp BP Pulse Ox 99.3 F 78 20 117/56 L 90 L 02/07/19 07:00 02/07/19 07:00 02/07/19 07:00 02/07/19 09:19 02/07/19 07:00 Intake and Output: 02/06/19 02/07/19 23:59 11:59 Intake Total 1040 Output Total 2 Balance 1038 - Medications Medications: Current Medications Acetaminophen (Tylenol 325mg Tab) 650 mg PO Q4 [facility] Last Admin: 02/07/19 08:44 Dose: 650 mg Allopurinol (Zyloprim) 2 mg PO DAILY [facility] Last Admin: 02/07/19 09:19 Dose: 2 mg Amlodipine Besylate (Norvasc) 5 mg PO DAILY [facility]1983 Last Admin: 02/07/19 09:18 Dose: 5 mg Carvedilol (Coreg) 25 mg PO BID [facility] Last Admin: 02/07/19 09:19 Dose: Not Given Heparin Sodium (Porcine) (Heparin) 5,000 units SC Q12 [facility] Last Admin: 02/07/19 10:39 Dose: 5,000 units Hydralazine HCl (Apresoline) 50 mg PO HS [facility] Last Admin: 02/06/19 22:09 Dose: 50 mg Metronidazole (Flagyl) 500 mg in 100 mls @ 100 mls/hr IV STAT SHORTY; Protocol Last Admin: 02/06/19 21:09 Dose: 100 mls/hr Ciprofloxacin (Cipro 400mg/200ml Dsw) 400 mg in 200 mls @ 133 mls/hr IVPB Q12H SHORTY; Protocol Last Admin: 02/07/19 09:22 Dose: 133 mls/hr Dextrose/Sodium Chloride (Dextrose 5%/0.45% Ns 1000 Ml) 1,000 mls @ 100 mls/hr IV .Q10H SHORTY Last Admin: 02/07/19 08:33 Dose: Not Given Metronidazole (Flagyl) 500 mg in 100 mls @ 100 mls/hr IVPB Q8H SHORTY; Protocol Last Admin: 02/07/19 04:16 Dose: 100 mls/hr [id number] Ethyl Esters (Lovaza) 2 gm PO BID SHORTY Last Admin: 02/07/19 09:19 Dose: 2 gm Pantoprazole Sodium (Protonix Ec Tab) 40 mg PO DAILY SHORTY Last Admin: 02/07/19 09:20 Dose: 40 mg Rosuvastatin Calcium (Crestor) 5 mg PO HS SHORTY Last Admin: 02/06/19 22:09 Dose: 5 mg - Labs Labs: 02/07/19 07:47 02/07/19 07:47 PT 11.6 SECONDS (9.7-12.2) 02/06/19 16:38 INR 1.1 02/06/19 16:38 APTT 29 SECONDS (21-34) 02/06/19 16:38 Assessment and Plan (1) Colitis Status: Acute (2) Proctitis Status: Acute (3) Arthralgia Status: Acute (4) Chronic kidney disease (CKD) Status: Acute
[2019-02-07] MEDS ORDERED: Potassium Chloride 20 mEq ER Tab PO ONE (12:00)
[2019-02-07] MEDS: metroNIDAZOLE IV 500 mg/100 ml 500 MG/100 ML BAG IV SCH ×2 (12:05→12:18)
--- NOTE | 2019-02-07 12:35 | CP.PCM.CON ---
<Cathy Cummings - Last Filed: 02/07/19 12:36> History of Present Illness - History of Present Illness History of Present Illness: Gastroenterology Fellow/PGY6 Consult Note 83 year old male with PMH of HTN, HLD, and CKD presenting with abdominal pain. Patient notes constant mid-abdominal pain without radiation to back or shoulder for one week. Notes one episode of rectal bleeding with bowel movement yesterday leading to ER presentation. Associated subjective fever. Denies chills, sweats, nausea, vomiting, melena, sick contacts, recent antibiotics, recent travel, hospitalization, or unintentional weight loss. Family endorses prior EGD or colonoscopy two years ago to be normal. Physician office contacted and note only records of a colonoscopy in 2013 (awaiting records). Family History- daughter-Colon cancer; son-pancreatic cancer; dad- unclear cancer type; sister-stomach cancer; unclear age of family member diagnoses Social History- denies tobacco, alcohol, illicit drug use Surgical History- none Review of Systems - Review of Systems Review of Systems: 12-point review of systems negative except for as above Past Patient History - Past Medical History & Family History Past Medical History?: Yes - Past Social History Smoking Status: Never Smoked - CARDIAC Hx Hypercholesterolemia: Yes Hx Hypertension: Yes Hx Pacemaker: No - PULMONARY Hx Respiratory Disorders: No - NEUROLOGICAL Hx Paralysis: No - HEENT Hx HEENT Problems: No - RENAL Hx Chronic Kidney Disease: Yes - ENDOCRINE/METABOLIC Hx Endocrine Disorders: No - HEMATOLOGICAL/ONCOLOGICAL Hx Anemia: Yes - INTEGUMENTARY Hx Dermatological Problems: No - MUSCULOSKELETAL/RHEUMATOLOGICAL Hx Falls: No - GASTROINTESTINAL Hx Gastrointestinal Disorders: No - GENITOURINARY/GYNECOLOGICAL Hx Genitourinary Disorders: No - PSYCHIATRIC Hx Substance Use: No - SURGICAL HISTORY Hx Surgeries: No - ANESTHESIA Hx Anesthesia: No Meds Allergies/Adverse Reactions: Allergies Allergy/AdvReac Type Severity Reaction Status Date / Time tuberculin, purified protein Allergy Verified 02/06/19 16:14 deriva seafood Allergy Uncoded 02/06/19 16:14 - Medications Medications: Current Medications Acetaminophen (Tylenol 325mg Tab) 650 mg PO Q4 [facility] Last Admin: 02/07/19 12:04 Dose: 650 mg Allopurinol (Zyloprim) 2 mg PO DAILY [facility] Last Admin: 02/07/19 09:19 Dose: 2 mg Amlodipine Besylate (Norvasc) 5 mg PO DAILY [facility] Last Admin: 02/07/19 09:18 Dose: 5 mg Carvedilol (Coreg) 25 mg PO BID [facility] Last Admin: 02/07/19 09:19 Dose: Not Given Heparin Sodium (Porcine) (Heparin) 5,000 units SC Q12 [facility] Last Admin: 02/07/19 10:39 Dose: 5,000 units Hydralazine HCl (Apresoline) 50 mg PO [facility] Last Admin: 02/06/19 22:09 Dose: 50 mg Metronidazole (Flagyl) 500 mg in 100 mls @ 100 mls/hr IV STAT [facility]; Protocol Last Admin: 02/07/19 12:18 Dose: 100 mls/hr Ciprofloxacin (Cipro 400mg/200ml Dsw) 400 mg in 200 mls @ 133 mls/hr IVPB Q12H [facility]; Protocol Last Admin: 02/07/19 09:22 Dose: 133 mls/hr Dextrose/Sodium Chloride (Dextrose 5%/0.45% Ns 1000 Ml) 1,000 mls @ 100 mls/hr IV .Q10H [facility] Last Admin: 02/07/19 08:33 Dose: Not Given Metronidazole (Flagyl) 500 mg in 100 mls @ 100 mls/hr IVPB Q8H [facility]; Protocol Last Admin: 02/07/19 12:20 Dose: 100 mls/hr Magnesium Hydroxide (Milk Of Magnesia) 30 ml PO HS PRN PRN Reason: Constipation Lvpks-[id number] Ethyl Esters (Lovaza) 2 gm PO BID [facility] Last Admin: 02/07/19 09:19 Dose: 2 gm Pantoprazole Sodium (Protonix Ec Tab) 40 mg PO DAILY [facility] Last Admin: 02/07/19 09:20 Dose: 40 mg Rosuvastatin Calcium (Crestor) 5 mg PO [facility] Last Admin: 02/06/19 22:09 Dose: 5 mg Physical Exam - Constitutional Appears: Non-toxic, No Acute Distress - Head Exam Head Exam: ATRAUMATIC, NORMOCEPHALIC - Eye Exam Eye Exam: EOMI, PERRL. absent: Scleral icterus Pupil Exam: PERRL. absent: Miosis, Mydriatic - ENT Exam ENT Exam: Mucous Membranes Dry, Normal Oropharynx - Neck Exam Neck exam: Positive for: Full Rom, Normal Inspection - Respiratory Exam Respiratory Exam: Clear to Auscultation Bilateral. absent: Rales, Rhonchi, Wheezes - Cardiovascular Exam Cardiovascular Exam: RRR, +S1, +S2. absent: Gallop, Rubs - GI/Abdominal Exam GI & Abdominal Exam: Normal Bowel Sounds, Soft, Tenderness. absent: Distended, Firm, Guarding, Organomegaly, Rebound, Rigid Additional comments: mid-abdominal tenderness to palpation - Extremities Exam Extremities exam: Positive for: normal inspection. Negative for: pedal edema - Neurological Exam Neurological exam: Alert, Oriented x3 - Psychiatric Exam Psychiatric exam: Normal Affect, Normal Mood - Skin Skin Exam: Dry, Intact, Normal Color, Warm Results - Vital Signs Recent Vital Signs: Last Vital Signs Temp 99.3 F 02/07/19 07:00 Pulse 78 02/07/19 07:00 Resp 20 02/07/19 07:00 BP 117/56 L 02/07/19 09:19 Pulse Ox 90 L 02/07/19 07:00 - Labs Result Diagrams: 02/07/19 07:47 02/07/19 07:47 Labs: Laboratory Results - last 24 hr 02/06/19 02/06/19 02/06/19 16:15 16:38 16:38 WBC 18.5 H D RBC 3.94 Hgb 11.3 Hct 33.8 L MCV 85.8 MCH 28.6 MCHC 33.3 RDW 14.5 Plt Count 136 MPV 12.4 H Neut % (Auto) 92.7 H Lymph % (Auto) 3.1 L [place] % (Auto) 4.1 Eos % (Auto) 0.0 Baso % (Auto) 0.1 Neut # (Auto) 17.1 H Lymph # (Auto) 0.6 L [place] # (Auto) 0.8 Eos # (Auto) 0.0 Baso # (Auto) 0.0 Neutrophils % (Manual) 82 H Band Neutrophils % 8 H Lymphocytes % (Manual) 7 L Monocytes % (Manual) 3 Platelet Estimate Normal Large Platelets Giant Platelets Hypochromasia (manual) Poikilocytosis (manual Anisocytosis (manual) PT INR APTT pO2 VBG pH VBG pCO2 VBG HCO3 VBG Total CO2 VBG O2 Sat (Calc) VBG Base Excess VBG Potassium Glucose Lactate Sodium Potassium Chloride Carbon Dioxide Anion Gap BUN Creatinine Est GFR ( Amer) Est GFR (Non-Af Amer) POC Glucose (mg/dL) 128 H Random Glucose Calcium Total Bilirubin AST ALT Alkaline Phosphatase Total Protein Albumin Globulin Albumin/Globulin Ratio Lipase Venous Blood Potassium Urine Color Urine Clarity Urine pH Ur Specific [place] Urine Protein Urine Glucose (UA) Urine Ketones Urine Blood Urine Nitrate Urine Bilirubin Urine Urobilinogen Ur Leukocyte Esterase Urine WBC (Auto) Ur Squamous Epith Cells Influenza Typ A,B (EIA) Negative for flu a/b 02/06/19 02/06/19 02/06/19 16:38 16:38 16:40 WBC RBC Hgb Hct MCV MCH MCHC RDW Plt Count MPV Neut % (Auto) Lymph % (Auto) [place] % (Auto) Eos % (Auto) Baso % (Auto) Neut # (Auto) Lymph # (Auto) [place] # (Auto) Eos # (Auto) Baso # (Auto) Neutrophils % (Manual) Band Neutrophils % Lymphocytes % (Manual) Monocytes % (Manual) Platelet Estimate Large Platelets Giant Platelets Hypochromasia (manual) Poikilocytosis (manual Anisocytosis (manual) PT 11.6 INR 1.1 APTT 29 pO2 29 L VBG pH 7.44 H VBG pCO2 39 L VBG HCO3 25.7 VBG Total CO2 27.7 VBG O2 Sat (Calc) 64.8 VBG Base Excess 2.3 H VBG Potassium 3.4 L Glucose 110 H Lactate 1.1 Sodium 140 142.0 Potassium 3.6 Chloride 105 108.0 H Carbon Dioxide 24 Anion Gap 15 BUN 49 H Creatinine 2.1 H Est GFR ( Amer) 27 Est GFR (Non-Af Amer) 22 POC Glucose (mg/dL) Random Glucose 114 H Calcium 10.2 Total Bilirubin 1.0 AST 27 ALT 19 Alkaline Phosphatase 64 Total Protein 7.1 Albumin 4.6 Globulin 2.5 Albumin/Globulin Ratio 1.8 Lipase 98 Venous Blood Potassium 3.4 L Urine Color Urine Clarity Urine pH Ur Specific [place] Urine Protein Urine Glucose (UA) Urine Ketones Urine Blood Urine Nitrate Urine Bilirubin Urine Urobilinogen Ur Leukocyte Esterase Urine WBC (Auto) Ur Squamous Epith Cells Influenza Typ A,B (EIA) 02/06/19 02/07/19 02/07/19 17:21 07:47 07:47 WBC 16.5 H RBC 3.15 L Hgb 9.3 L D Hct 27.4 L MCV 87.0 MCH 29.3 MCHC 33.7 RDW 14.8 H Plt Count 110 L D MPV 12.5 H Neut % (Auto) 89.6 H Lymph % (Auto) 6.4 L [place] % (Auto) 3.8 Eos % (Auto) 0.1 Baso % (Auto) 0.1 Neut # (Auto) 14.8 H Lymph # (Auto) 1.1 [place] # (Auto) 0.6 Eos # (Auto) 0.0 Baso # (Auto) 0.0 Neutrophils % (Manual) 80 H Band Neutrophils % 6 H Lymphocytes % (Manual) 9 L Monocytes % (Manual) 5 Platelet Estimate Slightly decreased L Large Platelets Present Giant Platelets Present Hypochromasia (manual) Slight Poikilocytosis (manual Slight Anisocytosis (manual) Slight PT INR APTT pO2 VBG pH VBG pCO2 VBG HCO3 VBG Total CO2 VBG O2 Sat (Calc) VBG Base Excess VBG Potassium Glucose Lactate Sodium 135 Potassium 3.4 L Chloride 103 Carbon Dioxide 26 Anion Gap 9 L BUN 37 H Creatinine 1.8 H Est GFR ( Amer) 32 Est GFR (Non-Af Amer) 27 POC Glucose (mg/dL) Random Glucose 109 H Calcium 8.6 Total Bilirubin 0.9 AST 25 ALT 8 L D Alkaline Phosphatase 49 Total Protein 5.5 L Albumin 3.2 L D Globulin 2.3 Albumin/Globulin Ratio 1.4 Lipase Venous Blood Potassium Urine Color Yellow Urine Clarity Clear Urine pH 5.0 Ur Specific [place] 1.010 Urine Protein Negative Urine Glucose (UA) Normal Urine Ketones Negative Urine Blood Negative Urine Nitrate Negative Urine Bilirubin Negative Urine Urobilinogen Normal Ur Leukocyte Esterase Neg Urine WBC (Auto) < 1 Ur Squamous Epith Cells 2 Influenza Typ A,B (EIA) Assessment & Plan - Assessment and Plan (Free Text) Assessment: 83 year old male with PMH of HTN, HLD, and CKD presenting with abdominal pain. Patient notes constant mid-abdominal pain, diarrhea, and rectal bleeding. Active treatment of CT A/P showing rectal thickening. Prior colonoscopy [address] Whitt showed internal and external hemorrhoids with mediocre prep. Recommended three year surveillance. Plan: -rule out infectious diarrhea -leukocytosis, febrile on admission -pending Cdiff, stool culture, fecal leukocytes -supportive [id number], pain control -on Cipro/Flagyl -continue IVFs -follow up blood cultures -clear liquid diet as tolerated -will follow clinical course <RicardoFaisal Y - Last Filed: 02/07/19 12:52> Meds - Medications Medications: Current Medications Acetaminophen (Tylenol 325mg Tab) 650 mg PO Q4 [facility] Last Admin: 02/07/19 12:04 Dose: 650 mg Allopurinol (Zyloprim) 2 mg PO DAILY [facility] Last Admin: 02/07/19 09:19 Dose: 2 mg Amlodipine Besylate (Norvasc) 5 mg PO DAILY [facility] Last Admin: 02/07/19 09:18 Dose: 5 mg Carvedilol (Coreg) 25 mg PO BID [facility] Last Admin: 02/07/19 09:19 Dose: Not Given Heparin Sodium (Porcine) (Heparin) 5,000 units SC Q12 [facility] Last Admin: 02/07/19 10:39 Dose: 5,000 units Hydralazine HCl (Apresoline) 50 mg PO HS [facility] Last Admin: 02/06/19 22:09 Dose: 50 mg Metronidazole (Flagyl) 500 mg in 100 mls @ 100 mls/hr IV STAT [facility]; Protocol Last Admin: 02/07/19 12:18 Dose: 100 mls/hr Ciprofloxacin (Cipro 400mg/200ml Dsw) 400 mg in 200 mls @ 133 mls/hr IVPB Q12H [facility]; Protocol Last Admin: 02/07/19 09:22 Dose: 133 mls/hr Dextrose/Sodium Chloride (Dextrose 5%/0.45% Ns 1000 Ml) 1,000 mls @ 100 mls/hr IV .Q10H [facility] Last Admin: 02/07/19 08:33 Dose: Not Given Metronidazole (Flagyl) 500 mg in 100 mls @ 100 mls/hr IVPB Q8H [facility]; Protocol Last Admin: 02/07/19 12:20 Dose: 100 mls/hr Magnesium Hydroxide (Milk Of Magnesia) 30 ml PO HS PRN PRN Reason: Constipation [id number] Ethyl Esters (Lovaza) 2 gm PO BID [facility] Last Admin: 02/07/19 09:19 Dose: 2 gm Pantoprazole Sodium (Protonix Ec Tab) 40 mg PO DAILY [facility] Last Admin: 02/07/19 09:20 Dose: 40 mg Rosuvastatin Calcium (Crestor) 5 mg PO HS [facility] Last Admin: 02/06/19 22:09 Dose: 5 mg Results - Vital Signs Recent Vital Signs: Last Vital Signs Temp 99.3 F 02/07/19 07:00 Pulse 78 02/07/19 07:00 Resp 20 02/07/19 07:00 BP 117/56 L 02/07/19 09:19 Pulse Ox 90 L 02/07/19 07:00 - Labs Result Diagrams: 02/07/19 07:47 02/07/19 07:47 Labs: Laboratory Results - last 24 hr 02/06/19 02/06/19 02/06/19 16:15 16:38 16:38 WBC 18.5 H D RBC 3.94 Hgb 11.3 Hct 33.8 L MCV 85.8 MCH 28.6 MCHC 33.3 RDW 14.5 Plt Count 136 MPV 12.4 H Neut % (Auto) 92.7 H Lymph % (Auto) 3.1 L [place] % (Auto) 4.1 Eos % (Auto) 0.0 Baso % (Auto) 0.1 Neut # (Auto) 17.1 H Lymph # (Auto) 0.6 L [place] # (Auto) 0.8 Eos # (Auto) 0.0 Baso # (Auto) 0.0 Neutrophils % (Manual) 82 H Band Neutrophils % 8 H Lymphocytes % (Manual) 7 L Monocytes % (Manual) 3 Platelet Estimate Normal Large Platelets Giant Platelets Hypochromasia (manual) Poikilocytosis (manual Anisocytosis (manual) PT INR APTT pO2 VBG pH VBG pCO2 VBG HCO3 VBG Total CO2 VBG O2 Sat (Calc) VBG Base Excess VBG Potassium Glucose Lactate Sodium Potassium Chloride Carbon Dioxide Anion Gap BUN Creatinine Est GFR ( Amer) Est GFR (Non-Af Amer) POC Glucose (mg/dL) 128 H Random Glucose Calcium Total Bilirubin AST ALT Alkaline Phosphatase Total Protein Albumin Globulin Albumin/Globulin Ratio Lipase Venous Blood Potassium Urine Color Urine Clarity Urine pH Ur Specific [place] Urine Protein Urine Glucose (UA) Urine Ketones Urine Blood Urine Nitrate Urine Bilirubin Urine Urobilinogen Ur Leukocyte Esterase Urine WBC (Auto) Ur Squamous Epith Cells Influenza Typ A,B (EIA) Negative for flu a/b 02/06/19 02/06/19 02/06/19 16:38 16:38 16:40 WBC RBC Hgb Hct MCV MCH MCHC RDW Plt Count MPV Neut % (Auto) Lymph % (Auto) [place] % (Auto) Eos % (Auto) Baso % (Auto) Neut # (Auto) Lymph # (Auto) [place] # (Auto) Eos # (Auto) Baso # (Auto) Neutrophils % (Manual) Band Neutrophils % Lymphocytes % (Manual) Monocytes % (Manual) Platelet Estimate Large Platelets Giant Platelets Hypochromasia (manual) Poikilocytosis (manual Anisocytosis (manual) PT 11.6 INR 1.1 APTT 29 pO2 29 L VBG pH 7.44 H VBG pCO2 39 L VBG HCO3 25.7 VBG Total CO2 27.7 VBG O2 Sat (Calc) 64.8 VBG Base Excess 2.3 H VBG Potassium 3.4 L Glucose 110 H Lactate 1.1 Sodium 140 142.0 Potassium 3.6 Chloride 105 108.0 H Carbon Dioxide 24 Anion Gap 15 BUN 49 H Creatinine 2.1 H Est GFR ( Amer) 27 Est GFR (Non-Af Amer) 22 POC Glucose (mg/dL) Random Glucose 114 H Calcium 10.2 Total Bilirubin 1.0 AST 27 ALT 19 Alkaline Phosphatase 64 Total Protein 7.1 Albumin 4.6 Globulin 2.5 Albumin/Globulin Ratio 1.8 Lipase 98 Venous Blood Potassium 3.4 L Urine Color Urine Clarity Urine pH Ur Specific [place] Urine Protein Urine Glucose (UA) Urine Ketones Urine Blood Urine Nitrate Urine Bilirubin Urine Urobilinogen Ur Leukocyte Esterase Urine WBC (Auto) Ur Squamous Epith Cells Influenza Typ A,B (EIA) 02/06/19 02/07/19 02/07/19 17:21 07:47 07:47 WBC 16.5 H RBC 3.15 L Hgb 9.3 L D Hct 27.4 L MCV 87.0 MCH 29.3 MCHC 33.7 RDW 14.8 H Plt Count 110 L D MPV 12.5 H Neut % (Auto) 89.6 H Lymph % (Auto) 6.4 L [place] % (Auto) 3.8 Eos % (Auto) 0.1 Baso % (Auto) 0.1 Neut # (Auto) 14.8 H Lymph # (Auto) 1.1 [place] # (Auto) 0.6 Eos # (Auto) 0.0 Baso # (Auto) 0.0 Neutrophils % (Manual) 80 H Band Neutrophils % 6 H Lymphocytes % (Manual) 9 L Monocytes % (Manual) 5 Platelet Estimate Slightly decreased L Large Platelets Present Giant Platelets Present Hypochromasia (manual) Slight Poikilocytosis (manual Slight Anisocytosis (manual) Slight PT INR APTT pO2 VBG pH VBG pCO2 VBG HCO3 VBG Total CO2 VBG O2 Sat (Calc) VBG Base Excess VBG Potassium Glucose Lactate Sodium 135 Potassium 3.4 L Chloride 103 Carbon Dioxide 26 Anion Gap 9 L BUN 37 H Creatinine 1.8 H Est GFR ( Amer) 32 Est GFR (Non-Af Amer) 27 POC Glucose (mg/dL) Random Glucose 109 H Calcium 8.6 Total Bilirubin 0.9 AST 25 ALT 8 L D Alkaline Phosphatase 49 Total Protein 5.5 L Albumin 3.2 L D Globulin 2.3 Albumin/Globulin Ratio 1.4 Lipase Venous Blood Potassium Urine Color Yellow Urine Clarity Clear Urine pH 5.0 Ur Specific [place] 1.010 Urine Protein Negative Urine Glucose (UA) Normal Urine Ketones Negative Urine Blood Negative Urine Nitrate Negative Urine Bilirubin Negative Urine Urobilinogen Normal Ur Leukocyte Esterase Neg Urine WBC (Auto) < 1 Ur Squamous Epith Cells 2 Influenza Typ A,B (EIA) Attending/Attestation - Attestation I have personally seen and examined this patient.: Yes I have fully participated in the care of the patient.: Yes I have reviewed all pertinent clinical information: Yes Notes (Text): 02/07/19 12:48 I have seen and examined patient with GI fellow. Agree with above documentation with the following additions. In brief, this is an 83 year old female with history of CKD, HTN, hyperlipidemia who presents to hospital with complaint of progressive fever/lethargy for the past one week. Yesterday she began to develop diffuse abdominal pain, 5/10 intensity along with one bloody bowel movement and came to hospital. Prior to one week ago she was in usual state of health. She denies nausea, vomiting, weight loss, sick contacts, recent antibiotic use, travel, or change in bowel habits. On arrival to hospital, temperature of 101 noted. She had an EGD/colonoscopy with Dr. Gomez two years ago which she claims was normal. CKD HTN Hyperlipidemia Abdominal pain, fever CT imaging reviewed by me showing gross mural wall thickening of rectum suggestive of proctitis - Liquid diet as tolerated - Continue with antibiotic therapy - Obtain stool studies (culture, c-difficile) - Continue to monitor H/H - Obtain prior endoscopic reports from primary GI physician - Will continue to monitor patient clinical course
--- NOTE | 2019-02-07 16:33 | CP.PCM.CON ---
History of Present Illness - History of Present Illness History of Present Illness: INFECTIOUS DISEASE; HPI; 83 year old female, whose past medical history includes HTN and Hypercholesterolemia, presents to the ED for evaluation of fever which began on day of admission 02/06/19. Patient reports subjective fever, chills, generalized body aches,abdominal pain, nausea and poor appetite. She also reports feeling like she has to urinate more often than usual, but she usn't able to urinate much. Patient reports dysuria and seeing a slight amount of blood in her urine. She also complains of a headache. Patient reports back pain which is chronic in nature. Patient denied any recent history of taking antibiotics.Patient denies any loss of weight. CT SHOWED PROCTITIS/COLITIS. Patient was placed on IV Cipro/and IV Flagyl as patient had leukocytosis. TODAY PATIENT COMPLAINT OF DIARRHEA AND MELANOTIC STOOLS. INFECTIOUS DISEASE CONSULT REQUESTED BY PMD FOR EVALUATION OF COLITIS/PROCTITIS. PMH: Anemia, Arthritis (KNEE L; BACK), HTN, Hypercholesterolemia, Chronic Kidney Disease Surgical History: No Surg Hx Denies: Pacemaker Family History- daughter-Colon cancer; son-pancreatic cancer; dad- unclear cancer type; sister-stomach cancer; unclear age of family member diagnoses - [facility] Procedures ANESTH INJECT-SPIN CANAL (06/03/15) HOME MANAGEMENT TREATMENT (06/15/16) INJECT STEROID (06/03/15) LUMBOSAC SPINE X-RAY NEC (06/03/15) ROM & JT MOBILITY TREATMENT OF MUSCULOSK LOW BACK/LE (06/15/16) SPINAL CANAL INJECT NEC (06/03/15) Family History: States: Unknown Family Hx - Social History Hx Tobacco Use: No Hx Alcohol Use: No Hx Substance Use: No - Immunization History Hx Tetanus Toxoid Vaccination: No Hx Influenza Vaccination: Yes Hx Pneumococcal Vaccination: Yes ALLERGY;PPD, SEAFOOD. Review of Systems - Constitutional Constitutional: Chills, Fever. absent: Night Sweats, Weight Loss - EENT Eyes: absent: Change in Vision Nose/Mouth/Throat: absent: Mouth Lesions, Odynophagia - Cardiovascular Cardiovascular: absent: Chest Pain, Dyspnea - Respiratory Respiratory: absent: Cough - Gastrointestinal Gastrointestinal: Abdominal Pain, Loose Stools, Melena - Genitourinary Genitourinary: Dysuria, Flank Pain, Urinary Frequency, Urinary Hesitance - Menstruation Menstruation: Post Menopausal - Hematologic/Lymphatic Hematologic: As Per HPI. absent: Easy Bleeding, Easy Bruising Past Patient History - Past Medical History & Family History Past Medical History?: Yes - Past Social History Smoking Status: Never Smoked - CARDIAC Hx Hypercholesterolemia: Yes Hx Hypertension: Yes - PULMONARY Hx Respiratory Disorders: No - NEUROLOGICAL Hx Paralysis: No - HEENT Hx HEENT Problems: No - RENAL Hx Chronic Kidney Disease: Yes - ENDOCRINE/METABOLIC Hx Endocrine Disorders: No - HEMATOLOGICAL/ONCOLOGICAL Hx Anemia: Yes - INTEGUMENTARY Hx Dermatological Problems: No - MUSCULOSKELETAL/RHEUMATOLOGICAL Hx Falls: No - GASTROINTESTINAL Hx Gastrointestinal Disorders: No - GENITOURINARY/GYNECOLOGICAL Hx Genitourinary Disorders: No - PSYCHIATRIC Hx Substance Use: No - SURGICAL HISTORY Hx Surgeries: No - ANESTHESIA Hx Anesthesia: No Meds Allergies/Adverse Reactions: Allergies Allergy/AdvReac Type Severity Reaction Status Date / Time tuberculin, purified protein Allergy Verified 02/06/19 16:14 deriva seafood Allergy Uncoded 02/06/19 16:14 - Medications Medications: Current Medications Acetaminophen (Tylenol 325mg Tab) 650 mg PO Q4 [facility] Last Admin: 02/07/19 12:04 Dose: 650 mg Allopurinol (Zyloprim) 2 mg PO DAILY [facility] Last Admin: 02/07/19 09:19 Dose: 2 mg Amlodipine Besylate (Norvasc) 5 mg PO DAILY [facility] Last Admin: 02/07/19 09:18 Dose: 5 mg Carvedilol (Coreg) 25 mg PO BID [facility] Last Admin: 02/07/19 09:19 Dose: Not Given Heparin Sodium (Porcine) (Heparin) 5,000 units SC Q12 [facility] Last Admin: 02/07/19 10:39 Dose: 5,000 units Hydralazine HCl (Apresoline) 50 mg PO HS [facility] Last Admin: 02/06/19 22:09 Dose: 50 mg Metronidazole (Flagyl) 500 mg in 100 mls @ 100 mls/hr IV STAT [facility]; Protocol Last Admin: 02/07/19 12:05 Dose: 100 mls/hr Ciprofloxacin (Cipro 400mg/200ml Dsw) 400 mg in 200 mls @ 133 mls/hr IVPB Q12H [facility]; Protocol Last Admin: 02/07/19 09:22 Dose: 133 mls/hr Dextrose/Sodium Chloride (Dextrose 5%/0.45% Ns 1000 Ml) 1,000 mls @ 100 mls/hr IV .Q10H [facility] Last Admin: 02/07/19 08:33 Dose: Not Given Metronidazole (Flagyl) 500 mg in 100 mls @ 100 mls/hr IVPB Q8H [facility]; Protocol Last Admin: 02/07/19 12:20 Dose: 100 mls/hr Magnesium Hydroxide (Milk Of Magnesia) 30 ml PO HS PRN PRN Reason: Constipation Orloq-2-Vdam Ethyl Esters (Lovaza) 2 gm PO BID [facility] Last Admin: 02/07/19 09:19 Dose: 2 gm Pantoprazole Sodium (Protonix Ec Tab) 40 mg PO DAILY [facility] Last Admin: 02/07/19 09:20 Dose: 40 mg Rosuvastatin Calcium (Crestor) 5 mg PO HS [facility] Last Admin: 02/06/19 22:09 Dose: 5 mg Physical Exam - Constitutional Appears: No Acute Distress - Head Exam Head Exam: NORMAL INSPECTION - Eye Exam Eye Exam: EOMI, PERRL - ENT Exam ENT Exam: Normal Oropharynx - Neck Exam Neck exam: Positive for: Normal Inspection - Respiratory Exam Respiratory Exam: NORMAL BREATHING PATTERN - Cardiovascular Exam Cardiovascular Exam: REGULAR RHYTHM, +S1, +S2 - GI/Abdominal Exam GI & Abdominal Exam: Normal Bowel Sounds, Soft, Tenderness (EPIGASTRIC/LT FLANK.) - Extremities Exam Extremities exam: Positive for: pedal pulses present. Negative for: calf tenderness, pedal edema - Neurological Exam Neurological exam: Alert, CN II-XII Intact, Normal Gait, Reflexes Normal - Skin Skin Exam: Normal Color, Warm Results - Vital Signs Recent Vital Signs: Last Vital Signs Temp 98.4 F 02/07/19 16:18 Pulse 72 02/07/19 16:18 Resp 20 02/07/19 16:18 BP 118/64 02/07/19 16:18 Pulse Ox 95 02/07/19 16:18 - Labs Result Diagrams: 02/07/19 07:47 02/07/19 07:47 Labs: Laboratory Results - last 24 hr 02/06/19 02/06/19 02/06/19 16:38 16:38 16:38 WBC 18.5 H D RBC 3.94 Hgb 11.3 Hct 33.8 L MCV 85.8 MCH 28.6 MCHC 33.3 RDW 14.5 Plt Count 136 MPV 12.4 H Neut % (Auto) 92.7 H Lymph % (Auto) 3.1 L Henry % (Auto) 4.1 Eos % (Auto) 0.0 Baso % (Auto) 0.1 Neut # (Auto) 17.1 H Lymph # (Auto) 0.6 L Henry # (Auto) 0.8 Eos # (Auto) 0.0 Baso # (Auto) 0.0 Neutrophils % (Manual) 82 H Band Neutrophils % 8 H Lymphocytes % (Manual) 7 L Monocytes % (Manual) 3 Platelet Estimate Normal Large Platelets Giant Platelets Hypochromasia (manual) Poikilocytosis (manual Anisocytosis (manual) PT 11.6 INR 1.1 APTT 29 pO2 VBG pH VBG pCO2 VBG HCO3 VBG Total CO2 VBG O2 Sat (Calc) VBG Base Excess VBG Potassium Glucose Lactate Sodium Potassium Chloride Carbon Dioxide Anion Gap BUN Creatinine Est GFR ( Amer) Est GFR (Non-Af Amer) Random Glucose Calcium Total Bilirubin AST ALT Alkaline Phosphatase Total Protein Albumin Globulin Albumin/Globulin Ratio Lipase Venous Blood Potassium Urine Color Urine Clarity Urine pH Ur Specific [place] Urine Protein Urine Glucose (UA) Urine Ketones Urine Blood Urine Nitrate Urine Bilirubin Urine Urobilinogen Ur Leukocyte Esterase Urine WBC (Auto) Ur Squamous Epith Cells Stool Leukocytes, Qual C. difficile Ag & Toxin Influenza Typ A,B (EIA) Negative for flu a/b 02/06/19 02/06/19 02/06/19 16:38 16:40 17:21 WBC RBC Hgb Hct MCV MCH MCHC RDW Plt Count MPV Neut % (Auto) Lymph % (Auto) Henry % (Auto) Eos % (Auto) Baso % (Auto) Neut # (Auto) Lymph # (Auto) Henry # (Auto) Eos # (Auto) Baso # (Auto) Neutrophils % (Manual) Band Neutrophils % Lymphocytes % (Manual) Monocytes % (Manual) Platelet Estimate Large Platelets Giant Platelets Hypochromasia (manual) Poikilocytosis (manual Anisocytosis (manual) PT INR APTT pO2 29 L VBG pH 7.44 H VBG pCO2 39 L VBG HCO3 25.7 VBG Total CO2 27.7 VBG O2 Sat (Calc) 64.8 VBG Base Excess 2.3 H VBG Potassium 3.4 L Glucose 110 H Lactate 1.1 Sodium 140 142.0 Potassium 3.6 Chloride 105 108.0 H Carbon Dioxide 24 Anion Gap 15 BUN 49 H Creatinine 2.1 H Est GFR ( Amer) 27 Est GFR (Non-Af Amer) 22 Random Glucose 114 H Calcium 10.2 Total Bilirubin 1.0 AST 27 ALT 19 Alkaline Phosphatase 64 Total Protein 7.1 Albumin 4.6 Globulin 2.5 Albumin/Globulin Ratio 1.8 Lipase 98 Venous Blood Potassium 3.4 L Urine Color Yellow Urine Clarity Clear Urine pH 5.0 Ur Specific [place] 1.010 Urine Protein Negative Urine Glucose (UA) Normal Urine Ketones Negative Urine Blood Negative Urine Nitrate Negative Urine Bilirubin Negative Urine Urobilinogen Normal Ur Leukocyte Esterase Neg Urine WBC (Auto) < 1 Ur Squamous Epith Cells 2 Stool Leukocytes, Qual C. difficile Ag & Toxin Influenza Typ A,B (EIA) 02/06/19 02/06/19 02/07/19 21:41 21:41 07:47 WBC 16.5 H RBC 3.15 L Hgb 9.3 L D Hct 27.4 L MCV 87.0 MCH 29.3 MCHC 33.7 RDW 14.8 H Plt Count 110 L D MPV 12.5 H Neut % (Auto) 89.6 H Lymph % (Auto) 6.4 L Henry % (Auto) 3.8 Eos % (Auto) 0.1 Baso % (Auto) 0.1 Neut # (Auto) 14.8 H Lymph # (Auto) 1.1 Henry # (Auto) 0.6 Eos # (Auto) 0.0 Baso # (Auto) 0.0 Neutrophils % (Manual) 80 H Band Neutrophils % 6 H Lymphocytes % (Manual) 9 L Monocytes % (Manual) 5 Platelet Estimate Slightly decreased L Large Platelets Present Giant Platelets Present Hypochromasia (manual) Slight Poikilocytosis (manual Slight Anisocytosis (manual) Slight PT INR APTT pO2 VBG pH VBG pCO2 VBG HCO3 VBG Total CO2 VBG O2 Sat (Calc) VBG Base Excess VBG Potassium Glucose Lactate Sodium Potassium Chloride Carbon Dioxide Anion Gap BUN Creatinine Est GFR ( Amer) Est GFR (Non-Af Amer) Random Glucose Calcium Total Bilirubin AST ALT Alkaline Phosphatase Total Protein Albumin Globulin Albumin/Globulin Ratio Lipase Venous Blood Potassium Urine Color Urine Clarity Urine pH Ur Specific [place] Urine Protein Urine Glucose (UA) Urine Ketones Urine Blood Urine Nitrate Urine Bilirubin Urine Urobilinogen Ur Leukocyte Esterase Urine WBC (Auto) Ur Squamous Epith Cells Stool Leukocytes, Qual Negative C. difficile Ag & Toxin Negative Influenza Typ A,B (EIA) 02/07/19 07:47 WBC RBC Hgb Hct MCV MCH MCHC RDW Plt Count MPV Neut % (Auto) Lymph % (Auto) Henry % (Auto) Eos % (Auto) Baso % (Auto) Neut # (Auto) Lymph # (Auto) Henry # (Auto) Eos # (Auto) Baso # (Auto) Neutrophils % (Manual) Band Neutrophils % Lymphocytes % (Manual) Monocytes % (Manual) Platelet Estimate Large Platelets Giant Platelets Hypochromasia (manual) Poikilocytosis (manual Anisocytosis (manual) PT INR APTT pO2 VBG pH VBG pCO2 VBG HCO3 VBG Total CO2 VBG O2 Sat (Calc) VBG Base Excess VBG Potassium Glucose Lactate Sodium 135 Potassium 3.4 L Chloride 103 Carbon Dioxide 26 Anion Gap 9 L BUN 37 H Creatinine 1.8 H Est GFR ( Amer) 32 Est GFR (Non-Af Amer) 27 Random Glucose 109 H Calcium 8.6 Total Bilirubin 0.9 AST 25 ALT 8 L D Alkaline Phosphatase 49 Total Protein 5.5 L Albumin 3.2 L D Globulin 2.3 Albumin/Globulin Ratio 1.4 Lipase Venous Blood Potassium Urine Color Urine Clarity Urine pH Ur Specific [place] Urine Protein Urine Glucose (UA) Urine Ketones Urine Blood Urine Nitrate Urine Bilirubin Urine Urobilinogen Ur Leukocyte Esterase Urine WBC (Auto) Ur Squamous Epith Cells Stool Leukocytes, Qual C. difficile Ag & Toxin Influenza Typ A,B (EIA) - Imaging and Cardiology CT scan - abdomenand pelvis with by mouth contrast Status: Report reviewed by me (SEVERE MURAL THICKENING OF THE RECTUM CONSISTENT WITH PROCTITIS/COLITIS. sEE FULL REPORT.) Assessment & Plan (1) Colitis Assessment and Plan: diarrhea workup in progress. C. difficile pending. Continue IV Cipro 400 every 12 hourly 02/06/19 continue IV Flagyl 500 mg every 8 hourly 02/06/19. Status: Acute (2) Proctitis Status: Acute (3) Rectal bleeding Assessment and Plan: Patient complaining of melanotic stools today. Patient seen by gastroenterology. Workup in order. Status: Acute (4) Acute on chronic renal insufficiency Assessment and Plan: monitor renal functions closely. Status: Acute
[2019-02-07] MEDS ORDERED: Magnesium Hydroxide Susp 30 ml UD PO PRN (22:00)
[2019-02-08] MEDS: Dextrose 5%/0.45% NS 1,000 ML IV SCH ×2 (04:10→13:34)
[2019-02-08] MEDS: metroNIDAZOLE IV 500 mg/100 ml 500 MG/100 ML BAG IVPB SCH ×3 (04:11→22:24)
[2019-02-08 08:27] LABS: BASO % 0.2 % (0.0-2.0); EOS % 0.3 % (0.0-4.0); HEMOGLOBIN 10.3 g/dL (11.0-16.0); LYMPH # 1.1 K/uL (1.0-4.3); LYMPH % 6.5 % (20.0-40.0); MEAN CORPUSCULAR HEMOGLOBIN 29.8 pg (27.0-31.0); MEAN CORPUSCULAR HGB CONC 33.9 g/dL (33.0-37.0); MONO # 0.7 K/uL (0.0-0.8); MONO % 4.2 % (0.0-10.0); NEUT # 15.5 K/uL (1.8-7.0); NEUT % 88.8 % (50.0-75.0); PLATELET COUNT 116 K/uL (130-400); RBC 3.46 Mil/uL (3.80-5.20); RED CELL DISTRIBUTION WIDTH 14.6 % (11.5-14.5); WHITE BLOOD COUNT 17.4 K/uL (4.8-10.8)
[2019-02-08 08:41] LABS: ALB/GLOB RATIO 1.6 (1.0-2.1); ALBUMIN 3.9 g/dL (3.5-5.0); CALCIUM 9.3 mg/dl (8.6-10.4)
[2019-02-08] MEDS: Pantoprazole 40 mg EC Tab PO SCH (10:34)
[2019-02-08] MEDS: Ciprofloxacin 400mg/200ml D5W 400 MG/200 ML BAG IVPB SCH ×2 (10:35→23:20)
[2019-02-08] MEDS: Omega-3-Acid Ethyl Esters 1 GM Cap PO SCH ×2 (10:37→17:50)
[2019-02-08 10:55] LABS: LYMPHOCYTE 6 % (20-40); MONOCYTE 5 % (0-10); NEUTROPHIL 89 % (50-75); PLATELET ESTIMATE SLIGHTLY DECREASED (NORMAL); TOTAL CELLS COUNTED 100
[2019-02-08 10:56] LABS: ANISOCYTOSIS SLIGHT; GIANT PLATELETS PRESENT; HYPOCHROMIC SLIGHT; LARGE PLATELETS PRESENT; POLYCHROMIC SLIGHT
--- NOTE | 2019-02-08 12:33 | CP.PCM.PN ---
Subjective - Date & Time of Evaluation Date of Evaluation: 02/08/19 Time of Evaluation: 12:33 - Subjective Subjective: CHIEF COMPLAINTS TODAY : DECREASE DIARRHEA GEN. WEAKNESS ROS. HEENT : N. Resp : No cough, wheezing ,pleuritic CP ,or hemoptysis Cardio : No anginal CP, PND, orthopnea, palpitation GI : No abd.pain, n/v ,diarrhea or GI bleeding . [employer] : No headache, vertigo, focal deficit. Musculoskel : No joint swelling , Derm : No rash Psych : Normal affect. Ext : No swelling ,calf pain PE. Pt. is alert awake in no distress. V.S As noted in the chart Head ,ear nose,throat and eyes : Normal. Neck : Supple with normal carotids. Lungs: Clear air entry. Heart : S1 & S2 normal with S4. No murmur. Abd : Soft tender with normal bowel sounds. Neuro : Moves all ext. with no localized deficit. Ext : No edema with intact pulses.Non tender calves Derm : No rashes or decubitus ulcer. LABS/RADIOLOGY: WBC 17 K ASSESSMENT/PLAN : CONT IV AB AWAITING LAB Objective - Vital Signs/Intake and Output Vital Signs (last 24 hours): Temp Pulse Resp BP Pulse Ox 98.3 F 87 20 135/77 95 02/08/19 07:54 02/08/19 07:54 02/08/19 07:54 02/08/19 10:34 02/08/19 07:54 Intake and Output: 02/08/19 02/08/19 11:59 23:59 Intake Total 1040 Balance 1040 - Medications Medications: Current Medications Acetaminophen (Tylenol 325mg Tab) 650 mg PO Q4 [facility] Last Admin: 02/08/19 12:23 Dose: Not Given Allopurinol (Zyloprim) 100 mg PO DAILY [facility] Last Admin: 02/08/19 10:34 Dose: 100 mg Amlodipine Besylate (Norvasc) 5 mg PO DAILY [facility] Last Admin: 02/08/19 10:34 Dose: 5 mg Carvedilol (Coreg) 25 mg PO BID [facility] Last Admin: 02/08/19 10:34 Dose: 25 mg Heparin Sodium (Porcine) (Heparin) 5,000 units SC Q12 [facility] Last Admin: 02/08/19 10:33 Dose: 5,000 units Hydralazine HCl (Apresoline) 50 mg PO HS [facility] Last Admin: 02/07/19 22:49 Dose: 50 mg Ciprofloxacin (Cipro 400mg/200ml Dsw) 400 mg in 200 mls @ 133 mls/hr IVPB Q12H [facility]; Protocol Last Admin: 02/08/19 10:35 Dose: 133 mls/hr Dextrose/Sodium Chloride (Dextrose 5%/0.45% Ns 1000 Ml) 1,000 mls @ 100 mls/hr IV .Q10H [facility] Last Admin: 02/08/19 04:10 Dose: Not Given Metronidazole (Flagyl) 500 mg in 100 mls @ 100 mls/hr IVPB Q8H [facility]; Protocol Last Admin: 02/08/19 04:11 Dose: 100 mls/hr Magnesium Hydroxide (Milk Of Magnesia) 30 ml PO HS PRN PRN Reason: Constipation [id number] Ethyl Esters (Lovaza) 2 gm PO BID [facility] Last Admin: 02/08/19 10:37 Dose: 2 gm Pantoprazole Sodium (Protonix Ec Tab) 40 mg PO DAILY [facility] Last Admin: 02/08/19 10:34 Dose: 40 mg Rosuvastatin Calcium (Crestor) 5 mg PO HS [facility] Last Admin: 02/07/19 22:29 Dose: 5 mg - Labs Labs: 02/08/19 08:12 02/08/19 08:12 PT 11.6 SECONDS (9.7-12.2) 02/06/19 16:38 INR 1.1 02/06/19 16:38 APTT 29 SECONDS (21-34) 02/06/19 16:38 Assessment and Plan (1) Colitis Status: Acute (2) Proctitis Status: Acute (3) Arthralgia Status: Acute (4) Chronic kidney disease (CKD) Status: Acute
--- NOTE | 2019-02-08 17:38 | CP.PCM.PN ---
<Trudy Kiser - Last Filed: 02/08/19 17:52> Subjective - Date & Time of Evaluation Date of Evaluation: 02/08/19 Time of Evaluation: 11:30 - Subjective Subjective: PGY5 GI Follow-up Pt seen and examined bedside Still has some abd discomfort lack of appetitie denies any further rectal bleeding ROS: 12 point ROS conducted, neg other than above Objective - Vital Signs/Intake and Output Vital Signs (last 24 hours): Temp Pulse Resp BP Pulse Ox 98.7 F 64 20 148/68 95 02/08/19 16:00 02/08/19 16:00 02/08/19 16:00 02/08/19 16:00 02/08/19 16:00 Intake and Output: 02/08/19 02/08/19 06:59 18:59 Intake Total 3140 1040 Balance 3140 1040 - Medications Medications: Current Medications Acetaminophen (Tylenol 325mg Tab) 650 mg PO Q4 [facility] Last Admin: 02/08/19 16:59 Dose: Not Given Allopurinol (Zyloprim) 100 mg PO DAILY [facility] Last Admin: 02/08/19 10:34 Dose: 100 mg Amlodipine Besylate (Norvasc) 5 mg PO DAILY [facility] Last Admin: 02/08/19 10:34 Dose: 5 mg Carvedilol (Coreg) 25 mg PO BID [facility] Last Admin: 02/08/19 10:34 Dose: 25 mg Heparin Sodium (Porcine) (Heparin) 5,000 units SC Q12 [facility] Last Admin: 02/08/19 10:33 Dose: 5,000 units Hydralazine HCl (Apresoline) 50 mg PO HS [facility] Last Admin: 02/07/19 22:49 Dose: 50 mg Ciprofloxacin (Cipro 400mg/200ml Dsw) 400 mg in 200 mls @ 133 mls/hr IVPB Q12H [facility]; Protocol Last Admin: 02/08/19 10:35 Dose: 133 mls/hr Dextrose/Sodium Chloride (Dextrose 5%/0.45% Ns 1000 Ml) 1,000 mls @ 100 mls/hr IV .Q10H [facility] Last Admin: 02/08/19 13:34 Dose: Not Given Metronidazole (Flagyl) 500 mg in 100 mls @ 100 mls/hr IVPB Q8H [facility]; Protocol Last Admin: 02/08/19 13:34 Dose: 100 mls/hr Magnesium Hydroxide (Milk Of Magnesia) 30 ml PO HS PRN PRN Reason: Constipation [id number] Ethyl Esters (Lovaza) 2 gm PO BID [facility] Last Admin: 02/08/19 10:37 Dose: 2 gm Pantoprazole Sodium (Protonix Ec Tab) 40 mg PO DAILY [facility] Last Admin: 02/08/19 10:34 Dose: 40 mg Rosuvastatin Calcium (Crestor) 5 mg PO HS [facility] Last Admin: 02/07/19 22:29 Dose: 5 mg - Labs Labs: 02/08/19 08:12 02/08/19 08:12 PT 11.6 SECONDS (9.7-12.2) 02/06/19 16:38 INR 1.1 02/06/19 16:38 APTT 29 SECONDS (21-34) 02/06/19 16:38 - Constitutional Appears: Well, No Acute Distress - Head Exam Head Exam: ATRAUMATIC, NORMOCEPHALIC - Eye Exam Eye Exam: Normal appearance - ENT Exam ENT Exam: Mucous Membranes Moist, Normal Exam - Neck Exam Neck Exam: Normal Inspection - Respiratory Exam Respiratory Exam: Clear to Ausculation Bilateral, NORMAL BREATHING PATTERN. absent: Rales, Rhonchi, Wheezes, Respiratory Distress - Cardiovascular Exam Cardiovascular Exam: REGULAR RHYTHM, +S1, +S2 - GI/Abdominal Exam GI & Abdominal Exam: Soft, Normal Bowel Sounds. absent: Distended, Firm, Guarding, Rigid, Tenderness, Organomegaly, Pulsatile Mass, Rebound - Extremities Exam Extremities Exam: absent: Joint Swelling, Pedal Edema - Neurological Exam Neurological Exam: Alert, Awake, Oriented x3 - Psychiatric Exam Psychiatric exam: Normal Affect, Normal Mood - Skin Skin Exam: Dry, Intact, Normal Color, Warm Assessment and Plan - Assessment and Plan (Free Text) Assessment: 83 year old male with PMH of HTN, HLD, and CKD presenting with abdominal pain. CT abd revealed proctitis Proctitis etiology unknown; DDx: infectous vs malign vs ulcer vs IBD Rectal bleeding 2/2 above Anemia likely 2/2 above Hx of constipation Plan: -continue abx as per ID, currently getting cipro and flagyl -monitor H/H -Protonix 40mg PO daily -type and screen -colonscopy from 2013 revealed internal and ext hemorrhoids -continue clears as tolerated, may advance to full -will plan of endoscopic eval based on clinical outcome D/W Dr. Reynoso <J Carlos Reynoso - Last Filed: 02/09/19 16:54> Objective - Vital Signs/Intake and Output Vital Signs (last 24 hours): Temp Pulse Resp BP Pulse Ox 97.5 F L 67 20 112/56 L 94 L 02/09/19 15:00 02/09/19 15:00 02/09/19 15:00 02/09/19 15:00 02/09/19 15:00 Intake and Output: 02/09/19 02/09/19 06:59 18:59 Intake Total 1160 Balance 1160 - Medications Medications: Current Medications Acetaminophen (Tylenol 325mg Tab) 650 mg PO Q4 [facility] Last Admin: 02/09/19 12:11 Dose: 650 mg Allopurinol (Zyloprim) 100 mg PO DAILY [facility] Last Admin: 02/09/19 10:46 Dose: 100 mg Amlodipine Besylate (Norvasc) 5 mg PO DAILY [facility] Last Admin: 02/09/19 10:46 Dose: 5 mg Carvedilol (Coreg) 25 mg PO BID [facility] Last Admin: 02/09/19 10:58 Dose: 25 mg Furosemide (Lasix) 40 mg IVP DAILY [facility] Heparin Sodium (Porcine) (Heparin) 5,000 units SC Q12 [facility] Last Admin: 02/09/19 10:46 Dose: 5,000 units Hydralazine HCl (Apresoline) 50 mg PO HS [facility] Last Admin: 02/08/19 22:25 Dose: 50 mg Ciprofloxacin (Cipro 400mg/200ml Dsw) 400 mg in 200 mls @ 133 mls/hr IVPB Q12H [facility]; Protocol Last Admin: 02/09/19 10:30 Dose: 133 mls/hr Dextrose/Sodium Chloride (Dextrose 5%/0.45% Ns 1000 Ml) 1,000 mls @ 100 mls/hr IV .Q10H [facility] Last Admin: 02/09/19 00:34 Dose: Not Given Metronidazole (Flagyl) 500 mg in 100 mls @ 100 mls/hr IVPB Q8H [facility]; Protocol Last Admin: 02/09/19 12:30 Dose: 100 mls/hr Magnesium Hydroxide (Milk Of Magnesia) 30 ml PO HS PRN PRN Reason: Constipation [id number]-[id number] Ethyl Esters (Lovaza) 2 gm PO BID [facility] Last Admin: 02/09/19 10:46 Dose: 2 gm Pantoprazole Sodium (Protonix Ec Tab) 40 mg PO DAILY [facility] Last Admin: 02/09/19 10:46 Dose: 40 mg Rosuvastatin Calcium (Crestor) 5 mg PO HS [facility] Last Admin: 02/08/19 22:24 Dose: 5 mg - Labs Labs: 02/08/19 08:12 02/08/19 08:12 PT 11.6 SECONDS (9.7-12.2) 02/06/19 16:38 INR 1.1 02/06/19 16:38 APTT 29 SECONDS (21-34) 02/06/19 16:38 Attending/Attestation - Attestation I have personally seen and examined this patient.: Yes I have fully participated in the care of the patient.: Yes I have reviewed all pertinent clinical information, including history, physical exam and plan: Yes Notes (Text): 02/09/19 16:53 Late entry The pt was seen and examined on Sunday. Chart was reviewed. Findings assessment and recommendations were discussed with Dr. Kiser and documented above.
--- NOTE | 2019-02-08 21:24 | CP.PCM.PN ---
Subjective - Date & Time of Evaluation Date of Evaluation: 02/08/19 Time of Evaluation: 21:24 - Subjective Subjective: AFEBRILE, C/O ABDOMINAL DISCOMFORT, HAD 2 BM TODAY PER RN -NO BLOOD POOR APPETITE Objective - Vital Signs/Intake and Output Vital Signs (last 24 hours): Temp Pulse Resp BP Pulse Ox 98.7 F 64 20 131/65 95 02/08/19 16:00 02/08/19 16:00 02/08/19 16:00 02/08/19 17:50 02/08/19 16:00 Intake and Output: 02/08/19 02/09/19 18:59 06:59 Intake Total 1040 Balance 1040 - Medications Medications: Current Medications Acetaminophen (Tylenol 325mg Tab) 650 mg PO Q4 [facility] Last Admin: 02/08/19 19:36 Dose: Not Given Allopurinol (Zyloprim) 100 mg PO DAILY [facility] Last Admin: 02/08/19 10:34 Dose: 100 mg Amlodipine Besylate (Norvasc) 5 mg PO DAILY [facility] Last Admin: 02/08/19 10:34 Dose: 5 mg Carvedilol (Coreg) 25 mg PO BID [facility] Last Admin: 02/08/19 17:50 Dose: 25 mg Heparin Sodium (Porcine) (Heparin) 5,000 units SC Q12 [facility] Last Admin: 02/08/19 10:33 Dose: 5,000 units Hydralazine HCl (Apresoline) 50 mg PO HS [facility] Last Admin: 02/07/19 22:49 Dose: 50 mg Ciprofloxacin (Cipro 400mg/200ml Dsw) 400 mg in 200 mls @ 133 mls/hr IVPB Q12H [facility]; Protocol Last Admin: 02/08/19 10:35 Dose: 133 mls/hr Dextrose/Sodium Chloride (Dextrose 5%/0.45% Ns 1000 Ml) 1,000 mls @ 100 mls/hr IV .Q10H [facility] Last Admin: 02/08/19 13:34 Dose: Not Given Metronidazole (Flagyl) 500 mg in 100 mls @ 100 mls/hr IVPB Q8H [facility]; Protocol Last Admin: 02/08/19 13:34 Dose: 100 mls/hr Magnesium Hydroxide (Milk Of Magnesia) 30 ml PO HS PRN PRN Reason: Constipation [id number] Ethyl Esters (Lovaza) 2 gm PO BID [facility] Last Admin: 02/08/19 17:50 Dose: Not Given Pantoprazole Sodium (Protonix Ec Tab) 40 mg PO DAILY [facility] Last Admin: 02/08/19 10:34 Dose: 40 mg Rosuvastatin Calcium (Crestor) 5 mg PO HS [facility] Last Admin: 02/07/19 22:29 Dose: 5 mg - Labs Labs: 02/08/19 08:12 02/08/19 08:12 PT 11.6 SECONDS (9.7-12.2) 02/06/19 16:38 INR 1.1 02/06/19 16:38 APTT 29 SECONDS (21-34) 02/06/19 16:38 - Constitutional Appears: No Acute Distress - Head Exam Head Exam: NORMAL INSPECTION - Eye Exam Eye Exam: EOMI, PERRL - ENT Exam ENT Exam: Normal Oropharynx - Neck Exam Neck Exam: Normal Inspection - Respiratory Exam Respiratory Exam: Clear to Ausculation Bilateral, NORMAL BREATHING PATTERN - Cardiovascular Exam Cardiovascular Exam: REGULAR RHYTHM, +S1, +S2 - GI/Abdominal Exam GI & Abdominal Exam: Soft, Tenderness (EPIGASTRIC REGION), Normal Bowel Sounds - Extremities Exam Extremities Exam: Normal Capillary Refill. absent: Calf Tenderness, Pedal Edema - Neurological Exam Neurological Exam: Alert, Awake, CN II-XII Intact, Oriented x3, Reflexes Normal - Psychiatric Exam Psychiatric exam: Normal Mood - Skin Skin Exam: Normal Color, Warm Assessment and Plan (1) Colitis Assessment & Plan: diarrhea workup -VE SO FAR C. difficile -VE STOOL LEUKOCYTES -VE Continue IV Cipro 400 every 12 hourly 02/06/19 continue IV Flagyl 500 mg every 8 hourly 02/06/19. ENTERIC PRECAUTIONS Status: Acute (2) Proctitis Status: Acute (3) Rectal bleeding Assessment & Plan: GI ON CASE . PER GI Status: Acute (4) Acute on chronic renal insufficiency Assessment & Plan: CREAT 1.8/BUN 26 BETTER Status: Acute
[2019-02-09] MEDS: Dextrose 5%/0.45% NS 1,000 ML IV SCH (00:34)
[2019-02-09] MEDS: metroNIDAZOLE IV 500 mg/100 ml 500 MG/100 ML BAG IVPB SCH ×3 (06:12→20:28)
[2019-02-09] MEDS: Ciprofloxacin 400mg/200ml D5W 400 MG/200 ML BAG IVPB SCH ×2 (10:30→21:42)
[2019-02-09] MEDS: Omega-3-Acid Ethyl Esters 1 GM Cap PO SCH ×2 (10:46→18:24)
[2019-02-09] MEDS: Pantoprazole 40 mg EC Tab PO SCH (10:46)
--- NOTE | 2019-02-09 12:50 | CP.PCM.PN ---
Subjective - Date & Time of Evaluation Date of Evaluation: 02/09/19 Time of Evaluation: 12:49 - Subjective Subjective: CHIEF COMPLAINTS TODAY : DECREASE DIARRHEA HAD SOB IN AM CXR MILD CHF ROS. HEENT : N. Resp : No cough, wheezing ,pleuritic CP ,or hemoptysis Cardio : No anginal CP, PND, orthopnea, palpitation GI : No abd.pain, n/v ,diarrhea or GI bleeding . BOTTOM TURNING LATHE TURNER : No headache, vertigo, focal deficit. Musculoskel : No joint swelling , Derm : No rash Psych : Normal affect. Ext : No swelling ,calf pain PE. Pt. is alert awake in no distress. V.S As noted in the chart Head ,ear nose,throat and eyes : Normal. Neck : Supple with normal carotids. Lungs: Clear air entry. Heart : S1 & S2 normal with S4. No murmur. Abd : Soft tender with normal bowel sounds. Neuro : Moves all ext. with no localized deficit. Ext : No edema with intact pulses.Non tender calves Derm : No rashes or decubitus ulcer. LABS/RADIOLOGY: WBC 17 K ASSESSMENT/PLAN : CONT IV AB ADD LASIX Objective - Vital Signs/Intake and Output Vital Signs (last 24 hours): Temp Pulse Resp BP Pulse Ox 98.1 F 81 20 145/70 90 L 02/09/19 08:56 02/09/19 08:56 02/09/19 08:56 02/09/19 10:58 02/09/19 08:56 - Medications Medications: Current Medications Acetaminophen (Tylenol 325mg Tab) 650 mg PO Q4 [facility] Last Admin: 02/09/19 12:11 Dose: 650 mg Allopurinol (Zyloprim) 100 mg PO DAILY [facility] Last Admin: 02/09/19 10:46 Dose: 100 mg Amlodipine Besylate (Norvasc) 5 mg PO DAILY [facility] Last Admin: 02/09/19 10:46 Dose: 5 mg Carvedilol (Coreg) 25 mg PO BID [facility] Last Admin: 02/09/19 10:58 Dose: 25 mg Heparin Sodium (Porcine) (Heparin) 5,000 units SC Q12 [facility] Last Admin: 02/09/19 10:46 Dose: 5,000 units Hydralazine HCl (Apresoline) 50 mg PO HS [facility] Last Admin: 02/08/19 22:25 Dose: 50 mg Ciprofloxacin (Cipro 400mg/200ml Dsw) 400 mg in 200 mls @ 133 mls/hr IVPB Q12H [facility]; Protocol Last Admin: 02/09/19 10:30 Dose: 133 mls/hr Dextrose/Sodium Chloride (Dextrose 5%/0.45% Ns 1000 Ml) 1,000 mls @ 100 mls/hr IV .Q10H [facility] Last Admin: 02/09/19 00:34 Dose: Not Given Metronidazole (Flagyl) 500 mg in 100 mls @ 100 mls/hr IVPB Q8H [facility]; Protocol Last Admin: 02/09/19 12:30 Dose: 100 mls/hr Magnesium Hydroxide (Milk Of Magnesia) 30 ml PO HS PRN PRN Reason: Constipation Doanz-4-Tlbt Ethyl Esters (Lovaza) 2 gm PO BID [facility] Last Admin: 02/09/19 10:46 Dose: 2 gm Pantoprazole Sodium (Protonix Ec Tab) 40 mg PO DAILY [facility] Last Admin: 02/09/19 10:46 Dose: 40 mg Rosuvastatin Calcium (Crestor) 5 mg PO HS [facility] Last Admin: 02/08/19 22:24 Dose: 5 mg - Labs Labs: 02/08/19 08:12 02/08/19 08:12 PT 11.6 SECONDS (9.7-12.2) 02/06/19 16:38 INR 1.1 02/06/19 16:38 APTT 29 SECONDS (21-34) 02/06/19 16:38 Assessment and Plan (1) Colitis Status: Acute (2) Proctitis Status: Acute (3) Arthralgia Status: Acute (4) Chronic kidney disease (CKD) Status: Acute
--- NOTE | 2019-02-09 13:23 | CP.PCM.PN ---
<Trudy Kiser - Last Filed: 02/09/19 13:24> Subjective - Date & Time of Evaluation Date of Evaluation: 02/09/19 Time of Evaluation: 10:00 - Subjective Subjective: PGY5 GI Follow-up Pt seen and examined bedside resting denies any abd pain had BM, denies any blood or black stool tolerating diet ROS: 12 point conducted, neg other than above Objective - Vital Signs/Intake and Output Vital Signs (last 24 hours): Temp Pulse Resp BP Pulse Ox 98.1 F 81 20 145/70 90 L 02/09/19 08:56 02/09/19 08:56 02/09/19 08:56 02/09/19 10:58 02/09/19 08:56 Intake and Output: 02/09/19 02/09/19 06:59 18:59 Intake Total 1160 Balance 1160 - Medications Medications: Current Medications Acetaminophen (Tylenol 325mg Tab) 650 mg PO Q4 [facility] Last Admin: 02/09/19 12:11 Dose: 650 mg Allopurinol (Zyloprim) 100 mg PO DAILY [facility] Last Admin: 02/09/19 10:46 Dose: 100 mg Amlodipine Besylate (Norvasc) 5 mg PO DAILY [facility] Last Admin: 02/09/19 10:46 Dose: 5 mg Carvedilol (Coreg) 25 mg PO BID [facility] Last Admin: 02/09/19 10:58 Dose: 25 mg Furosemide (Lasix) 40 mg IVP DAILY [facility] Heparin Sodium (Porcine) (Heparin) 5,000 units SC Q12 [facility] Last Admin: 02/09/19 10:46 Dose: 5,000 units Hydralazine HCl (Apresoline) 50 mg PO HS [facility] Last Admin: 02/08/19 22:25 Dose: 50 mg Ciprofloxacin (Cipro 400mg/200ml Dsw) 400 mg in 200 mls @ 133 mls/hr IVPB Q12H [facility]; Protocol Last Admin: 02/09/19 10:30 Dose: 133 mls/hr Dextrose/Sodium Chloride (Dextrose 5%/0.45% Ns 1000 Ml) 1,000 mls @ 100 mls/hr IV .Q10H [facility] Last Admin: 02/09/19 00:34 Dose: Not Given Metronidazole (Flagyl) 500 mg in 100 mls @ 100 mls/hr IVPB Q8H [facility]; Protocol Last Admin: 02/09/19 12:30 Dose: 100 mls/hr Magnesium Hydroxide (Milk Of Magnesia) 30 ml PO HS PRN PRN Reason: Constipation Xvckl-0-Cxca Ethyl Esters (Lovaza) 2 gm PO BID [facility] Last Admin: 02/09/19 10:46 Dose: 2 gm Pantoprazole Sodium (Protonix Ec Tab) 40 mg PO DAILY [facility] Last Admin: 02/09/19 10:46 Dose: 40 mg Rosuvastatin Calcium (Crestor) 5 mg PO HS [facility] Last Admin: 02/08/19 22:24 Dose: 5 mg - Labs Labs: 02/08/19 08:12 02/08/19 08:12 PT 11.6 SECONDS (9.7-12.2) 02/06/19 16:38 INR 1.1 02/06/19 16:38 APTT 29 SECONDS (21-34) 02/06/19 16:38 - Constitutional Appears: Well, No Acute Distress - Head Exam Head Exam: ATRAUMATIC, NORMOCEPHALIC - Eye Exam Eye Exam: Normal appearance - Neck Exam Neck Exam: Normal Inspection - Respiratory Exam Respiratory Exam: Clear to Ausculation Bilateral, NORMAL BREATHING PATTERN. absent: Rales, Rhonchi, Wheezes, Respiratory Distress - Cardiovascular Exam Cardiovascular Exam: REGULAR RHYTHM, +S1, +S2 - GI/Abdominal Exam GI & Abdominal Exam: Soft, Normal Bowel Sounds. absent: Distended, Firm, Guarding, Rigid, Tenderness, Organomegaly, Rebound - Extremities Exam Extremities Exam: absent: Joint Swelling, Pedal Edema - Neurological Exam Neurological Exam: Alert, Awake, Oriented x3 - Psychiatric Exam Psychiatric exam: Normal Affect, Normal Mood - Skin Skin Exam: Dry, Intact, Normal Color, Warm Assessment and Plan - Assessment and Plan (Free Text) Assessment: 83 year old male with PMH of HTN, HLD, and CKD presenting with abdominal pain. CT abd revealed proctitis Proctitis etiology unknown; DDx: infectous vs malign vs ulcer vs IBD Rectal bleeding 2/2 above Anemia likely 2/2 above Hx of constipation Plan: -continue abx as per ID, currently getting cipro and flagyl; c.diff neg -monitor H/H -Protonix 40mg PO daily -type and screen -colonscopy from 2013 revealed internal and ext hemorrhoids -continue clears as tolerated, may advance to full -pt refused any endoscopic procedure at this time, she notes that she will think about it D/W Dr. Reynoso <J Carlos Reynoso - Last Filed: 02/09/19 16:56> Objective - Vital Signs/Intake and Output Vital Signs (last 24 hours): Temp Pulse Resp BP Pulse Ox 97.5 F L 67 20 112/56 L 94 L 02/09/19 15:00 02/09/19 15:00 02/09/19 15:00 02/09/19 15:00 02/09/19 15:00 Intake and Output: 02/09/19 02/09/19 06:59 18:59 Intake Total 1160 Balance 1160 - Medications Medications: Current Medications Acetaminophen (Tylenol 325mg Tab) 650 mg PO Q4 [facility] Last Admin: 02/09/19 12:11 Dose: 650 mg Allopurinol (Zyloprim) 100 mg PO DAILY [facility] Last Admin: 02/09/19 10:46 Dose: 100 mg Amlodipine Besylate (Norvasc) 5 mg PO DAILY [facility] Last Admin: 02/09/19 10:46 Dose: 5 mg Carvedilol (Coreg) 25 mg PO BID [facility] Last Admin: 02/09/19 10:58 Dose: 25 mg Furosemide (Lasix) 40 mg IVP DAILY [facility] Heparin Sodium (Porcine) (Heparin) 5,000 units SC Q12 [facility] Last Admin: 02/09/19 10:46 Dose: 5,000 units Hydralazine HCl (Apresoline) 50 mg PO HS [facility] Last Admin: 02/08/19 22:25 Dose: 50 mg Ciprofloxacin (Cipro 400mg/200ml Dsw) 400 mg in 200 mls @ 133 mls/hr IVPB Q12H [facility]; Protocol Last Admin: 02/09/19 10:30 Dose: 133 mls/hr Dextrose/Sodium Chloride (Dextrose 5%/0.45% Ns 1000 Ml) 1,000 mls @ 100 mls/hr IV .Q10H [facility] Last Admin: 02/09/19 00:34 Dose: Not Given Metronidazole (Flagyl) 500 mg in 100 mls @ 100 mls/hr IVPB Q8H [facility]; Protocol Last Admin: 02/09/19 12:30 Dose: 100 mls/hr Magnesium Hydroxide (Milk Of Magnesia) 30 ml PO HS PRN PRN Reason: Constipation Zkdnv-[id number]-Loic Ethyl Esters (Lovaza) 2 gm PO BID [facility] Last Admin: 02/09/19 10:46 Dose: 2 gm Pantoprazole Sodium (Protonix Ec Tab) 40 mg PO DAILY [facility] Last Admin: 02/09/19 10:46 Dose: 40 mg Rosuvastatin Calcium (Crestor) 5 mg PO HS [facility] Last Admin: 02/08/19 22:24 Dose: 5 mg - Labs Labs: 02/08/19 08:12 02/08/19 08:12 PT 11.6 SECONDS (9.7-12.2) 02/06/19 16:38 INR 1.1 02/06/19 16:38 APTT 29 SECONDS (21-34) 02/06/19 16:38 Attending/Attestation - Attestation I have personally seen and examined this patient.: Yes I have fully participated in the care of the patient.: Yes I have reviewed all pertinent clinical information, including history, physical exam and plan: Yes Notes (Text): 02/09/19 16:56 Chart reviewed. Pt examined this am and discussed with Dr. Kiser. Agree with the above-documented findings, assessment and recommendations.
--- NOTE | 2019-02-09 18:02 | RAD ---
Date of service: 02/09/2019 HISTORY: CP, rales COMPARISON: 02/06/2019 TECHNIQUE: 1 view obtained. FINDINGS: LUNGS: Extensive opacity at right base. Questionable mild opacity at left base. PLEURA: Small bilateral pleural effusion. No pneumothorax. CARDIOVASCULAR: There is atherosclerotic calcification of the thoracic aorta. Normal heart size. There is mild congestive change. OSSEOUS STRUCTURES: No significant abnormalities. VISUALIZED UPPER ABDOMEN: Normal. OTHER FINDINGS: None. IMPRESSION: Congestive change, small bilateral pleural effusion and opacity at right base. Likely pulmonary edema. Follow-up advised. Rule out pneumonia.
--- NOTE | 2019-02-09 20:08 | CARD ---
APPROVED REPORT Date of service: 02/06/2019 EKG Measurement Heart [id number] <Conclusion> Normal sinus rhythm Normal ECG
--- NOTE | 2019-02-09 23:13 | CP.PCM.PN ---
Subjective - Date & Time of Evaluation Date of Evaluation: 02/09/19 Time of Evaluation: 23:13 - Subjective Subjective: AFEBRILE, ABDOMINAL PAIN IMPROVED TOLERATING DIET GI F/U NOTED Objective - Vital Signs/Intake and Output Vital Signs (last 24 hours): Temp Pulse Resp BP Pulse Ox 97.5 F L 67 20 136/75 94 L 02/09/19 15:00 02/09/19 15:00 02/09/19 15:00 02/09/19 18:24 02/09/19 15:00 - Medications Medications: Current Medications Acetaminophen (Tylenol 325mg Tab) 650 mg PO Q4 [facility] Last Admin: 02/09/19 20:27 Dose: Not Given Allopurinol (Zyloprim) 100 mg PO DAILY [facility] Last Admin: 02/09/19 10:46 Dose: 100 mg Amlodipine Besylate (Norvasc) 5 mg PO DAILY [facility] Last Admin: 02/09/19 10:46 Dose: 5 mg Carvedilol (Coreg) 25 mg PO BID [facility] Last Admin: 02/09/19 18:24 Dose: 25 mg Furosemide (Lasix) 40 mg IVP DAILY [facility] Heparin Sodium (Porcine) (Heparin) 5,000 units SC Q12 [facility] Last Admin: 02/09/19 21:43 Dose: 5,000 units Hydralazine HCl (Apresoline) 50 mg PO HS [facility] Last Admin: 02/09/19 21:42 Dose: 50 mg Ciprofloxacin (Cipro 400mg/200ml Dsw) 400 mg in 200 mls @ 133 mls/hr IVPB Q12H [facility]; Protocol Last Admin: 02/09/19 21:42 Dose: 133 mls/hr Dextrose/Sodium Chloride (Dextrose 5%/0.45% Ns 1000 Ml) 1,000 mls @ 100 mls/hr IV .Q10H [facility] Last Admin: 02/09/19 00:34 Dose: Not Given Metronidazole (Flagyl) 500 mg in 100 mls @ 100 mls/hr IVPB Q8H [facility]; Protocol Last Admin: 02/09/19 20:28 Dose: 100 mls/hr Magnesium Hydroxide (Milk Of Magnesia) 30 ml PO HS PRN PRN Reason: Constipation Ktsxo-5-Puud Ethyl Esters (Lovaza) 2 gm PO BID [facility] Last Admin: 02/09/19 18:24 Dose: 2 gm Pantoprazole Sodium (Protonix Ec Tab) 40 mg PO DAILY [facility] Last Admin: 02/09/19 10:46 Dose: 40 mg Rosuvastatin Calcium (Crestor) 5 mg PO HS [facility] Last Admin: 02/09/19 21:43 Dose: 5 mg Tramadol HCl (Ultram) 50 mg PO Q8 PRN PRN Reason: Pain, moderate (4-7) Last Admin: 02/09/19 20:33 Dose: 50 mg - Labs Labs: 02/08/19 08:12 02/08/19 08:12 PT 11.6 SECONDS (9.7-12.2) 02/06/19 16:38 INR 1.1 02/06/19 16:38 APTT 29 SECONDS (21-34) 02/06/19 16:38 - Constitutional Appears: No Acute Distress - Head Exam Head Exam: NORMAL INSPECTION - Eye Exam Eye Exam: EOMI, PERRL. absent: Scleral icterus - ENT Exam ENT Exam: Normal Oropharynx - Neck Exam Neck Exam: Normal Inspection - Respiratory Exam Respiratory Exam: Clear to Ausculation Bilateral - Cardiovascular Exam Cardiovascular Exam: REGULAR RHYTHM, +S1, +S2 - GI/Abdominal Exam GI & Abdominal Exam: Soft, Normal Bowel Sounds. absent: Tenderness (EPIGASTRIUM), Organomegaly - Extremities Exam Extremities Exam: Normal Capillary Refill. absent: Calf Tenderness, Pedal Edema - Neurological Exam Neurological Exam: Alert, Awake, CN II-XII Intact, Oriented x3, Reflexes Normal - Psychiatric Exam Psychiatric exam: Normal Mood - Skin Skin Exam: Normal Color, Warm Assessment and Plan (1) Colitis Assessment & Plan: diarrhea workup -VE SO FAR C. difficile -VE STOOL LEUKOCYTES -VE Continue IV Cipro 400 every 12 hourly 02/06/19 continue IV Flagyl 500 mg every 8 hourly 02/06/19. ENTERIC PRECAUTIONS Status: Acute (2) Proctitis Assessment & Plan: ETIOLOGY OF PROCTITIS ?INTERNAL HAEMORRHOIDS R/O TEAR VS ULCER CHECK RPR. CONSIDER SIGMOIDOSCOPY IF FEASIBLEOR OPD Status: Acute (3) Rectal bleeding Status: Acute (4) Acute on chronic renal insufficiency Status: Acute
[2019-02-10] MEDS: metroNIDAZOLE IV 500 mg/100 ml 500 MG/100 ML BAG IVPB SCH ×3 (05:09→20:50)
[2019-02-10 07:54] LABS: BASO % 0.2 % (0.0-2.0); EOS # 0.1 K/uL (0.0-0.7); EOS % 0.7 % (0.0-4.0); HEMOGLOBIN 9.1 g/dL (11.0-16.0); LYMPH # 0.6 K/uL (1.0-4.3); MEAN CELL VOLUME 87.8 fL (81.0-99.0); MEAN CORPUSCULAR HEMOGLOBIN 30.1 pg (27.0-31.0); MEAN CORPUSCULAR HGB CONC 34.3 g/dL (33.0-37.0); MEAN PLATELET VOLUME 11.8 fL (7.2-11.7); MONO # 0.7 K/uL (0.0-0.8); MONO % 8.2 % (0.0-10.0); NEUT # 7.2 K/uL (1.8-7.0); NEUT % 83.9 % (50.0-75.0); NRBC % 0.1 % (0.0-2.0); PLATELET COUNT 132 K/uL (130-400); RBC 3.03 Mil/uL (3.80-5.20); RED CELL DISTRIBUTION WIDTH 14.5 % (11.5-14.5)
[2019-02-10 07:59] LABS: WHITE BLOOD COUNT 8.6 K/uL (4.8-10.8)
[2019-02-10 08:14] LABS: ALB/GLOB RATIO 1.6 (1.0-2.1); ALBUMIN 3.4 g/dL (3.5-5.0); CALCIUM 8.7 mg/dl (8.6-10.4)
--- NOTE | 2019-02-10 09:01 | CP.PCM.PN ---
<Cathy Cummings - Last Filed: 02/10/19 09:10> Subjective - Date & Time of Evaluation Date of Evaluation: 02/10/19 Time of Evaluation: 08:58 - Subjective Subjective: Gastroenterology Fellow/PGY6 Progress Note Patient sitting on side of bed. Admits to nausea with dry heaves. Denies abdominal pain. States she doesn't like the clear liquid diet. Last episode of loose stool on sunday without rectal bleeding (only bowel movement since admission). A 12-point review of systems negative except for as above. Objective - Vital Signs/Intake and Output Vital Signs (last 24 hours): Temp Pulse Resp BP Pulse Ox 98.1 F 67 20 118/65 96 02/10/19 07:00 02/10/19 07:00 02/10/19 07:00 02/10/19 07:00 02/10/19 07:00 - Medications Medications: Current Medications Acetaminophen (Tylenol 325mg Tab) 650 mg PO Q4 [facility] Last Admin: 02/10/19 08:33 Dose: 650 mg Allopurinol (Zyloprim) 100 mg PO DAILY [facility] Last Admin: 02/09/19 10:46 Dose: 100 mg Amlodipine Besylate (Norvasc) 5 mg PO DAILY [facility] Last Admin: 02/09/19 10:46 Dose: 5 mg Carvedilol (Coreg) 25 mg PO BID [facility] Last Admin: 02/09/19 18:24 Dose: 25 mg Furosemide (Lasix) 40 mg IVP DAILY [facility] Heparin Sodium (Porcine) (Heparin) 5,000 units SC Q12 [facility] Last Admin: 02/09/19 21:43 Dose: 5,000 units Hydralazine HCl (Apresoline) 50 mg PO HS [facility] Last Admin: 02/09/19 21:42 Dose: 50 mg Ciprofloxacin (Cipro 400mg/200ml Dsw) 400 mg in 200 mls @ 133 mls/hr IVPB Q12H [facility]; Protocol Last Admin: 02/09/19 21:42 Dose: 133 mls/hr Dextrose/Sodium Chloride (Dextrose 5%/0.45% Ns 1000 Ml) 1,000 mls @ 100 mls/hr IV .Q10H [facility] Last Admin: 02/09/19 00:34 Dose: Not Given Metronidazole (Flagyl) 500 mg in 100 mls @ 100 mls/hr IVPB Q8H [facility]; Protocol Last Admin: 02/10/19 05:09 Dose: 100 mls/hr Magnesium Hydroxide (Milk Of Magnesia) 30 ml PO HS PRN PRN Reason: Constipation Ndofh-0-Vzhh Ethyl Esters (Lovaza) 2 gm PO BID [facility] Last Admin: 02/09/19 18:24 Dose: 2 gm Pantoprazole Sodium (Protonix Ec Tab) 40 mg PO DAILY [facility] Last Admin: 02/09/19 10:46 Dose: 40 mg Rosuvastatin Calcium (Crestor) 5 mg PO HS [facility] Last Admin: 02/09/19 21:43 Dose: 5 mg Tramadol HCl (Ultram) 50 mg PO Q8 PRN PRN Reason: Pain, moderate (4-7) Last Admin: 02/09/19 20:33 Dose: 50 mg - Labs Labs: 02/10/19 07:14 02/10/19 07:14 PT 11.6 SECONDS (9.7-12.2) 02/06/19 16:38 INR 1.1 02/06/19 16:38 APTT 29 SECONDS (21-34) 02/06/19 16:38 - Constitutional Appears: Non-toxic, No Acute Distress - Head Exam Head Exam: ATRAUMATIC, NORMOCEPHALIC - Eye Exam Eye Exam: EOMI, PERRL. absent: Scleral icterus Pupil Exam: PERRL. absent: Miosis, Mydriatic - ENT Exam ENT Exam: Mucous Membranes Moist, Normal Oropharynx - Neck Exam Neck Exam: Full ROM, Normal Inspection - Respiratory Exam Respiratory Exam: Clear to Ausculation Bilateral. absent: Rales, Rhonchi, Wheezes - Cardiovascular Exam Cardiovascular Exam: RRR, +S1, +S2. absent: Gallop, Rubs - GI/Abdominal Exam GI & Abdominal Exam: Soft, Normal Bowel Sounds. absent: Distended, Firm, Guarding, Rigid, Tenderness, Organomegaly, Rebound - Extremities Exam Extremities Exam: Normal Inspection. absent: Pedal Edema - Neurological Exam Neurological Exam: Alert, Awake - Psychiatric Exam Psychiatric exam: Normal Affect, Normal Mood - Skin Skin Exam: Dry, Intact, Normal Color, Warm Assessment and Plan - Assessment and Plan (Free Text) Assessment: 83 year old male with PMH of HTN, HLD, and CKD presenting with abdominal pain. Patient notes constant mid-abdominal pain, diarrhea, and rectal bleeding. Active treatment of CT A/P showing rectal thickening. Prior colonoscopy [address] Whitt showed internal and external hemorrhoids with "mediocre" prep. Recommended three year surveillance. 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 for re-evaluation of symptoms and discussion of endoscopic evaluation for rectal thickening -will follow clinical course <Debra Roberts - Last Filed: 02/10/19 19:39> Objective - Vital Signs/Intake and Output Vital Signs (last 24 hours): Temp Pulse Resp BP Pulse Ox 98 F 69 20 122/80 93 L 02/10/19 17:36 02/10/19 15:00 02/10/19 15:00 02/10/19 17:52 02/10/19 15:00 Intake and Output: 02/10/19 02/11/19 18:59 06:59 Intake Total 410 Balance 410 - Medications Medications: Current Medications Acetaminophen (Tylenol 325mg Tab) 650 mg PO Q4 [facility] Last Admin: 02/10/19 16:36 Dose: 650 mg Allopurinol (Zyloprim) 100 mg PO DAILY [facility] Last Admin: 02/10/19 10:05 Dose: 100 mg Amlodipine Besylate (Norvasc) 5 mg PO DAILY [facility] Last Admin: 02/10/19 10:05 Dose: 5 mg Carvedilol (Coreg) 25 mg PO BID [facility] Last Admin: 02/10/19 17:52 Dose: 25 mg Furosemide (Lasix) 40 mg IVP DAILY [facility] Last Admin: 02/10/19 10:07 Dose: 40 mg Hydralazine HCl (Apresoline) 50 mg PO [facility] Last Admin: 02/09/19 21:42 Dose: 50 mg Dextrose/Sodium Chloride (Dextrose 5%/0.45% Ns 1000 Ml) 1,000 mls @ 100 mls/hr IV .Q10H [facility] Last Admin: 02/09/19 00:34 Dose: Not Given Metronidazole (Flagyl) 500 mg in 100 mls @ 100 mls/hr IVPB Q8H [facility]; Protocol Last Admin: 02/10/19 12:54 Dose: 100 mls/hr Ceftriaxone Sodium (Rocephin 1 Gram Ivpb) 1 gm in 100 mls @ 100 mls/hr IVPB Q24H [facility] Last Admin: 02/10/19 14:24 Dose: 100 mls/hr Magnesium Hydroxide (Milk Of Magnesia) 30 ml PO HS PRN PRN Reason: Constipation Ejiia-8-Plnq Ethyl Esters (Lovaza) 2 gm PO BID [facility] Last Admin: 02/10/19 17:52 Dose: 2 gm Pantoprazole Sodium (Protonix Ec Tab) 40 mg PO DAILY [facility] Last Admin: 02/10/19 10:05 Dose: 40 mg Rosuvastatin Calcium (Crestor) 5 mg PO HS [facility] Last Admin: 02/09/19 21:43 Dose: 5 mg Tramadol HCl (Ultram) 50 mg PO Q8 PRN PRN Reason: Pain, moderate (4-7) Last Admin: 02/09/19 20:33 Dose: 50 mg - Labs Labs: 02/10/19 07:14 02/10/19 07:14 PT 11.6 SECONDS (9.7-12.2) 02/06/19 16:38 INR 1.1 02/06/19 16:38 APTT 29 SECONDS (21-34) 02/06/19 16:38 Attending/Attestation - Attestation I have personally seen and examined this patient.: Yes I have fully participated in the care of the patient.: Yes I have reviewed all pertinent clinical information, including history, physical exam and plan: Yes Notes (Text): I have seen and examined the patient with the GI fellow. This is a 83 yo F with PMH of HTN, HLD, and CKD who p/w mid-abdominal pain associated with n/v found to have CT abd/pelvis showing rectal thickening and leukocytosis. Started on ceftriaxone. Blood cultures neg, urine cx neg. Stool occult neg, stool leukocytes neg, c. diff neg. Prior colonoscopy [address] Whitt showed internal and external hemorrhoids with "mediocre" prep. Recommended three year surveillance. General: NAD Abd: soft, nt, nd Plan: -unclear clinical significance of CT imaging findings, ? ischemic colitis though rectum is odd distribution -stool culture if with BM -cipro/flagyl as per ID -advance diet as tolerated -patient declines sigmoidoscopy/colonoscopy at present -would benefit from her outpt GI for re-evaluation of symptoms/consider outpt flex sigmoidoscopy -likely can be d/c-ed tmrw from GI standpoint as long as pt tolerates diet 02/10/19 19:37
[2019-02-10 10:05] LABS: BANDS 1 % (0-2); LYMPHOCYTE 7 % (20-40); MONOCYTE 8 % (0-10); NEUTROPHIL 84 % (50-75); PLATELET ESTIMATE NORMAL (NORMAL); TOTAL CELLS COUNTED 100
[2019-02-10] MEDS: Pantoprazole 40 mg EC Tab PO SCH (10:05)
[2019-02-10] MEDS: Ciprofloxacin 400mg/200ml D5W 400 MG/200 ML BAG IVPB SCH (10:05)
[2019-02-10] MEDS: Omega-3-Acid Ethyl Esters 1 GM Cap PO SCH ×2 (11:27→17:52)
--- NOTE | 2019-02-10 12:37 | CP.PCM.PN ---
Subjective - Date & Time of Evaluation Date of Evaluation: 02/10/19 Time of Evaluation: 12:37 - Subjective Subjective: CHIEF COMPLAINTS TODAY : DECREASE DIARRHEA NO SOB ROS. HEENT : N. Resp : No cough, wheezing ,pleuritic CP ,or hemoptysis Cardio : No anginal CP, PND, orthopnea, palpitation GI : No abd.pain, n/v ,diarrhea or GI bleeding . RESEARCH ASSISTANT MEMBER : No headache, vertigo, focal deficit. Musculoskel : No joint swelling , Derm : No rash Psych : Normal affect. Ext : No swelling ,calf pain PE. Pt. is alert awake in no distress. V.S As noted in the chart Head ,ear nose,throat and eyes : Normal. Neck : Supple with normal carotids. Lungs: Clear air entry. Heart : S1 & S2 normal with S4. No murmur. Abd : Soft tender with normal bowel sounds. Neuro : Moves all ext. with no localized deficit. Ext : No edema with intact pulses.Non tender calves Derm : No rashes or decubitus ulcer. LABS/RADIOLOGY: WBC 17 K ASSESSMENT/PLAN : CONT IV AB ADD LASIX Objective - Vital Signs/Intake and Output Vital Signs (last 24 hours): Temp Pulse Resp BP Pulse Ox 98.1 F 67 20 118/65 96 02/10/19 07:00 02/10/19 07:00 02/10/19 07:00 02/10/19 10:07 02/10/19 07:00 - Medications Medications: Current Medications Acetaminophen (Tylenol 325mg Tab) 650 mg PO Q4 [facility] Last Admin: 02/10/19 08:33 Dose: 650 mg Allopurinol (Zyloprim) 100 mg PO DAILY [facility] Last Admin: 02/10/19 10:05 Dose: 100 mg Amlodipine Besylate (Norvasc) 5 mg PO DAILY [facility] Last Admin: 02/10/19 10:05 Dose: 5 mg Carvedilol (Coreg) 25 mg PO BID [facility] Last Admin: 02/10/19 10:06 Dose: 25 mg Furosemide (Lasix) 40 mg IVP DAILY [facility] Last Admin: 02/10/19 10:07 Dose: 40 mg Hydralazine HCl (Apresoline) 50 mg PO HS [facility] Last Admin: 02/09/19 21:42 Dose: 50 mg Dextrose/Sodium Chloride (Dextrose 5%/0.45% Ns 1000 Ml) 1,000 mls @ 100 mls/hr IV .Q10H [facility] Last Admin: 02/09/19 00:34 Dose: Not Given Metronidazole (Flagyl) 500 mg in 100 mls @ 100 mls/hr IVPB Q8H [facility]; Protocol Last Admin: 02/10/19 05:09 Dose: 100 mls/hr Ceftriaxone Sodium (Rocephin 1 Gram Ivpb) 1 gm in 100 mls @ 100 mls/hr IVPB Q24H [facility] Magnesium Hydroxide (Milk Of Magnesia) 30 ml PO HS PRN PRN Reason: Constipation Ajxav-9-Ghga Ethyl Esters (Lovaza) 2 gm PO BID [facility] Last Admin: 02/10/19 11:27 Dose: 2 gm Pantoprazole Sodium (Protonix Ec Tab) 40 mg PO DAILY [facility] Last Admin: 02/10/19 10:05 Dose: 40 mg Rosuvastatin Calcium (Crestor) 5 mg PO HS [facility] Last Admin: 02/09/19 21:43 Dose: 5 mg Tramadol HCl (Ultram) 50 mg PO Q8 PRN PRN Reason: Pain, moderate (4-7) Last Admin: 02/09/19 20:33 Dose: 50 mg - Labs Labs: 02/10/19 07:14 02/10/19 07:14 PT 11.6 SECONDS (9.7-12.2) 02/06/19 16:38 INR 1.1 02/06/19 16:38 APTT 29 SECONDS (21-34) 02/06/19 16:38 Assessment and Plan (1) Colitis Status: Acute (2) Proctitis Status: Acute (3) Arthralgia Status: Acute (4) Chronic kidney disease (CKD) Status: Acute
[2019-02-10] MEDS: cefTRIAXone 1 gm 1 GM/100 ML BAG IVPB SCH (14:24)
--- NOTE | 2019-02-10 16:25 | CP.PCM.PN ---
Subjective - Date & Time of Evaluation Date of Evaluation: 02/10/19 Time of Evaluation: 16:25 - Subjective Subjective: AFEBRILE, ABDOMINAL PAIN IMPROVED, C/O NAUSEA DIARRHEA IMPROVING WANTS REGULAR DIET. LABS ; WBC 8.6 H/H 9.1 AND 26.6 LOW RENAL FUNCTION POOR 2.0/BUN 23. ? CIPRO VS HUS DISCUSSED WITH PHARMACY. D/C IV CIPRO CHANGED TO iv ROCEPHIN 1 G Q 24HRLY DAILY GI F/U NOTED Objective - Vital Signs/Intake and Output Vital Signs (last 24 hours): Temp Pulse Resp BP Pulse Ox 98.1 F 67 20 118/65 96 02/10/19 07:00 02/10/19 07:00 02/10/19 07:00 02/10/19 10:07 02/10/19 07:00 Intake and Output: 02/10/19 02/10/19 06:59 18:59 Intake Total 410 Balance 410 - Medications Medications: Current Medications Acetaminophen (Tylenol 325mg Tab) 650 mg PO Q4 [facility] Last Admin: 02/10/19 12:53 Dose: 650 mg Allopurinol (Zyloprim) 100 mg PO DAILY [facility] Last Admin: 02/10/19 10:05 Dose: 100 mg Amlodipine Besylate (Norvasc) 5 mg PO DAILY [facility] Last Admin: 02/10/19 10:05 Dose: 5 mg Carvedilol (Coreg) 25 mg PO BID [facility] Last Admin: 02/10/19 10:06 Dose: 25 mg Furosemide (Lasix) 40 mg IVP DAILY [facility] Last Admin: 02/10/19 10:07 Dose: 40 mg Hydralazine HCl (Apresoline) 50 mg PO HS [facility] Last Admin: 02/09/19 21:42 Dose: 50 mg Dextrose/Sodium Chloride (Dextrose 5%/0.45% Ns 1000 Ml) 1,000 mls @ 100 mls/hr IV .Q10H [facility] Last Admin: 02/09/19 00:34 Dose: Not Given Metronidazole (Flagyl) 500 mg in 100 mls @ 100 mls/hr IVPB Q8H [facility]; Protocol Last Admin: 02/10/19 12:54 Dose: 100 mls/hr Ceftriaxone Sodium (Rocephin 1 Gram Ivpb) 1 gm in 100 mls @ 100 mls/hr IVPB Q24H [facility] Last Admin: 02/10/19 14:24 Dose: 100 mls/hr Magnesium Hydroxide (Milk Of Magnesia) 30 ml PO HS PRN PRN Reason: Constipation Yckii-8-Wkll Ethyl Esters (Lovaza) 2 gm PO BID [facility] Last Admin: 02/10/19 11:27 Dose: 2 gm Pantoprazole Sodium (Protonix Ec Tab) 40 mg PO DAILY [facility] Last Admin: 02/10/19 10:05 Dose: 40 mg Rosuvastatin Calcium (Crestor) 5 mg PO HS [facility] Last Admin: 02/09/19 21:43 Dose: 5 mg Tramadol HCl (Ultram) 50 mg PO Q8 PRN PRN Reason: Pain, moderate (4-7) Last Admin: 02/09/19 20:33 Dose: 50 mg - Labs Labs: 02/10/19 07:14 02/10/19 07:14 PT 11.6 SECONDS (9.7-12.2) 02/06/19 16:38 INR 1.1 02/06/19 16:38 APTT 29 SECONDS (21-34) 02/06/19 16:38 - Constitutional Appears: No Acute Distress - Head Exam Head Exam: NORMAL INSPECTION - ENT Exam ENT Exam: Normal Oropharynx - Neck Exam Neck Exam: Normal Inspection - Respiratory Exam Respiratory Exam: Clear to Ausculation Bilateral, NORMAL BREATHING PATTERN - Cardiovascular Exam Cardiovascular Exam: REGULAR RHYTHM, +S1, +S2 - GI/Abdominal Exam GI & Abdominal Exam: Soft, Normal Bowel Sounds. absent: Tenderness - Extremities Exam Extremities Exam: Normal Capillary Refill. absent: Calf Tenderness, Pedal Edema - Neurological Exam Neurological Exam: Alert, Awake, CN II-XII Intact, Oriented x3, Reflexes Normal - Psychiatric Exam Psychiatric exam: Normal Mood - Skin Skin Exam: Normal Color, Pallor Assessment and Plan (1) Colitis Assessment & Plan: diarrhea workup -VE SO FAR C. difficile -VE STOOL LEUKOCYTES -VE d/v IV Cipro 400 every 12 hourly 02/06/19- 02/10/19 in view of rising creatinine/ AND NAUSEA ADD iv ROCEPHIN 1 G ONCE A DAY DAILY 02/10/19 continue IV Flagyl 500 mg every 8 hourly 02/06/19. ENTERIC PRECAUTIONS Status: Acute (2) Proctitis Assessment & Plan: ETIOLOGY OF PROCTITIS ?INTERNAL HAEMORRHOIDS/RECTAL THICKENING R/O TEAR VS ULCER VS OCCULT MALGNANCY CHECK RPR. PER GI ,CAN BE WORKED UP AN OUTPATIENT. PATIENT PRESENTLY DENYING ANY PROCEDURE. Status: Acute (3) Rectal bleeding Assessment & Plan: NO FURTHER RECTAL BLEEDING. wATCH h&h . Status: Acute (4) Acute on chronic renal insufficiency Assessment & Plan: RENAL FUNCTION DETERIORATING. qUESTIONABLE cIPRO DC iv cIPRO START iv rOCEPHIN 1 G DAILY DAILY X 5 DAYS oBSERVE RENAL FUNCTIONS CLOSELY. Status: Acute
[2019-02-11] MEDS: metroNIDAZOLE IV 500 mg/100 ml 500 MG/100 ML BAG IVPB SCH ×2 (06:30→12:55)
[2019-02-11 07:24] LABS: CALCIUM 8.9 mg/dl (8.6-10.4)
--- NOTE | 2019-02-11 08:00 | CP.PCM.PN ---
<Cathy Cummings - Last Filed: 02/11/19 07:56> Subjective - Date & Time of Evaluation Date of Evaluation: 02/11/19 Time of Evaluation: 07:56 - Subjective Subjective: Gastroenterology Fellow/PGY6 Progress Note Patient admits to resolved nausea. States she doesn't feel hungry. Tolerated liquid diet. No bowel movement since sunday. A 12-point review of systems negative except for as above. Objective - Vital Signs/Intake and Output Vital Signs (last 24 hours): Temp Pulse Resp BP Pulse Ox 97.9 F 69 20 117/61 97 02/10/19 23:25 02/10/19 23:25 02/10/19 23:25 02/10/19 23:25 02/10/19 23:25 Intake and Output: 02/11/19 02/11/19 06:59 18:59 Intake Total 420 Balance 420 - Medications Medications: Current Medications Acetaminophen (Tylenol 325mg Tab) 650 mg PO Q4 [facility] Last Admin: 02/11/19 05:00 Dose: 650 mg Allopurinol (Zyloprim) 100 mg PO DAILY [facility] Last Admin: 02/10/19 10:05 Dose: 100 mg Amlodipine Besylate (Norvasc) 5 mg PO DAILY [facility] Last Admin: 02/10/19 10:05 Dose: 5 mg Carvedilol (Coreg) 25 mg PO BID [facility] Last Admin: 02/10/19 17:52 Dose: 25 mg Furosemide (Lasix) 40 mg IVP DAILY [facility] Last Admin: 02/10/19 10:07 Dose: 40 mg Hydralazine HCl (Apresoline) 50 mg PO HS [facility] Last Admin: 02/10/19 21:01 Dose: 50 mg Dextrose/Sodium Chloride (Dextrose 5%/0.45% Ns 1000 Ml) 1,000 mls @ 100 mls/hr IV .Q10H [facility] Last Admin: 02/09/19 00:34 Dose: Not Given Metronidazole (Flagyl) 500 mg in 100 mls @ 100 mls/hr IVPB Q8H [facility]; Protocol Last Admin: 02/11/19 06:30 Dose: 100 mls/hr Ceftriaxone Sodium (Rocephin 1 Gram Ivpb) 1 gm in 100 mls @ 100 mls/hr IVPB Q24H [facility] Last Admin: 02/10/19 14:24 Dose: 100 mls/hr Magnesium Hydroxide (Milk Of Magnesia) 30 ml PO HS PRN PRN Reason: Constipation Ucodm-4-Gdlb Ethyl Esters (Lovaza) 2 gm PO BID [facility] Last Admin: 02/10/19 17:52 Dose: 2 gm Ondansetron HCl (Zofran Inj) 4 mg IVP Q6 PRN PRN Reason: Nausea/Vomiting Pantoprazole Sodium (Protonix Ec Tab) 40 mg PO DAILY [facility] Last Admin: 02/10/19 10:05 Dose: 40 mg Polyethylene Glycol (Miralax) 17 gm PO DAILY [facility] Rosuvastatin Calcium (Crestor) 5 mg PO HS [facility] Last Admin: 02/10/19 21:00 Dose: 5 mg Tramadol HCl (Ultram) 50 mg PO Q8 PRN PRN Reason: Pain, moderate (4-7) Last Admin: 02/09/19 20:33 Dose: 50 mg - Labs Labs: 02/10/19 07:14 02/11/19 07:04 PT 11.6 SECONDS (9.7-12.2) 02/06/19 16:38 INR 1.1 02/06/19 16:38 APTT 29 SECONDS (21-34) 02/06/19 16:38 - Constitutional Appears: Non-toxic, No Acute Distress - Head Exam Head Exam: ATRAUMATIC, NORMOCEPHALIC - Eye Exam Eye Exam: EOMI, PERRL. absent: Scleral icterus Pupil Exam: PERRL. absent: Miosis, Mydriatic - ENT Exam ENT Exam: Mucous Membranes Moist, Normal Oropharynx - Neck Exam Neck Exam: Full ROM, Normal Inspection - Respiratory Exam Respiratory Exam: Clear to Ausculation Bilateral. absent: Rales, Rhonchi, Wheezes - Cardiovascular Exam Cardiovascular Exam: RRR, +S1, +S2. absent: Gallop, Rubs - GI/Abdominal Exam GI & Abdominal Exam: Soft, Normal Bowel Sounds. absent: Distended, Firm, Gua rding, Rigid, Tenderness, Organomegaly, Rebound - Extremities Exam Extremities Exam: Normal Inspection. absent: Pedal Edema - Neurological Exam Neurological Exam: Alert, Awake - Psychiatric Exam Psychiatric exam: Normal Affect, Normal Mood - Skin Skin Exam: Dry, Intact, Normal Color, Warm Assessment and Plan - Assessment and Plan (Free Text) Assessment: 83 year old male with PMH of HTN, HLD, and CKD presenting with abdominal pain. Patient notes constant mid-abdominal pain, diarrhea, and rectal bleeding. Active treatment of CT A/P showing rectal thickening. Prior colonoscopy [address] Whitt showed internal and external hemorrhoids with "mediocre" prep. Recommended three year surveillance. Plan: -nausea resolved, advance to soft bland diet -cleared from GI standpoint for discharge if diet tolerated -negative Cdiff and fecal leukocytes -ID managing- Cipro switched to ceftriaxone, Flagyl day 5 -recommend 10-14 day antibiotic course -will benefit from outpatient follow up with established high pressure cleaner for re-evaluation of symptoms and discussion of endoscopic evaluation for rectal thickening <Faisal Silva - Last Filed: 02/11/19 17:31> Objective - Vital Signs/Intake and Output Vital Signs (last 24 hours): Temp Pulse Resp BP Pulse Ox 98 F 67 20 132/71 95 02/11/19 15:35 02/11/19 15:35 02/11/19 15:35 02/11/19 15:35 02/11/19 15:35 Intake and Output: 02/11/19 02/11/19 06:59 18:59 Intake Total 420 Balance 420 - Labs Labs: 02/10/19 07:14 02/11/19 07:04 PT 11.6 SECONDS (9.7-12.2) 02/06/19 16:38 INR 1.1 02/06/19 16:38 APTT 29 SECONDS (21-34) 02/06/19 16:38 Attending/Attestation - Attestation I have personally seen and examined this patient.: Yes I have fully participated in the care of the patient.: Yes I have reviewed all pertinent clinical information, including history, physical exam and plan: Yes Notes (Text): 02/11/19 17:29 I have seen and examined patient with GI fellow. No acute events overnight, no bowel movements over past 48 hours. She denies abdominal pain, nausea, vomiting, fever/chills. Tolerating PO liquids without difficulty. HTN Hyperlipidemia CKD Proctitis - Diet as tolerated - Continue with antibiotic therapy as per ID - Patient offered endoscopic evaluation to further evaluate proctitis of unclear etiology, though refused at this time and prefers to follow up as outpatient with primary GI physician. No further planned GI intervention at this time, will sign off case. Please reconsult as necessary, thank you.
[2019-02-11] MEDS ORDERED: POLYETHYLENE GLYCOL 3350 17 GM/Dose PACKET PO SCH (10:00)
[2019-02-11] MEDS: Omega-3-Acid Ethyl Esters 1 GM Cap PO SCH (10:16)
[2019-02-11] MEDS: Pantoprazole 40 mg EC Tab PO SCH (10:16)
--- NOTE | 2019-02-11 11:54 | CP.PCM.PN ---
Subjective - Date & Time of Evaluation Date of Evaluation: 02/11/19 Time of Evaluation: 11:54 - Subjective Subjective: AFEBRILE, ABDOMINAL PAIN IMPROVED, DIARRHEA IMPROVED, DENIES RECTAL PAIN. feeling better ON REGULAR DIET. LABS ; WBC 8.6 H/H 9.1 AND 26.6 LOW RENAL FUNCTION POOR 2.1/BUN 24(patient has been history of chronic renal insufficiency ) DIARRHEA WORKUP NEGATIVE RPR -NONREACTIVE. CASE DISCUSSED WITH GI. DR RODRIGUEZ PATIENT HAS HER OWN GI , wILL FOLLOW UP WITH HIM. cASE DISCUSSED WITH NURSE PRACTITIONER MS GALLAGHER.. Objective - Vital Signs/Intake and Output Vital Signs (last 24 hours): Temp Pulse Resp BP Pulse Ox 98.1 F 73 18 136/70 92 L 02/11/19 07:30 02/11/19 07:30 02/11/19 07:30 02/11/19 10:17 02/11/19 07:30 Intake and Output: 02/11/19 02/11/19 06:59 18:59 Intake Total 420 Balance 420 - Medications Medications: Current Medications Acetaminophen (Tylenol 325mg Tab) 650 mg PO Q4 [facility] Last Admin: 02/11/19 08:13 Dose: 650 mg Allopurinol (Zyloprim) 100 mg PO DAILY SHORTY Last Admin: 02/11/19 10:15 Dose: 100 mg Amlodipine Besylate (Norvasc) 5 mg PO DAILY SHORTY Last Admin: 02/11/19 10:16 Dose: 5 mg Carvedilol (Coreg) 25 mg PO BID [facility]ORT[facility] Last Admin: 02/11/19 10:16 Dose: 25 mg Furosemide (Lasix) 40 mg IVP DAILY SHORTY Last Admin: 02/11/19 10:17 Dose: 40 mg Hydralazine HCl (Apresoline) 50 mg PO HS SHORTY Last Admin: 02/10/19 21:01 Dose: 50 mg Dextrose/Sodium Chloride (Dextrose 5%/0.45% Ns 1000 Ml) 1,000 mls @ 100 mls/hr IV .Q10H [facility]ORT[facility] Last Admin: 02/09/19 00:34 Dose: Not Given Metronidazole (Flagyl) 500 mg in 100 mls @ 100 mls/hr IVPB Q8H [facility]ORTY; Protocol Last Admin: 02/11/19 06:30 Dose: 100 mls/hr Ceftriaxone Sodium (Rocephin 1 Gram Ivpb) 1 gm in 100 mls @ 100 mls/hr IVPB Q24H [facility] Last Admin: 02/10/19 14:24 Dose: 100 mls/hr Magnesium Hydroxide (Milk Of Magnesia) 30 ml PO HS PRN PRN Reason: Constipation [id number] Ethyl Esters (Lovaza) 2 gm PO BID [facility] Last Admin: 02/11/19 10:16 Dose: 2 gm Ondansetron HCl (Zofran Inj) 4 mg IVP Q6 PRN PRN Reason: Nausea/Vomiting Pantoprazole Sodium (Protonix Ec Tab) 40 mg PO DAILY [facility] Last Admin: 02/11/19 10:16 Dose: 40 mg Polyethylene Glycol (Miralax) 17 gm PO DAILY [facility] Last Admin: 02/11/19 10:16 Dose: 17 gm Rosuvastatin Calcium (Crestor) 5 mg PO HS [facility] Last Admin: 02/10/19 21:00 Dose: 5 mg Tramadol HCl (Ultram) 50 mg PO Q8 PRN PRN Reason: Pain, moderate (4-7) Last Admin: 02/09/19 20:33 Dose: 50 mg - Labs Labs: 02/10/19 07:14 02/11/19 07:04 PT 11.6 SECONDS (9.7-12.2) 02/06/19 16:38 INR 1.1 02/06/19 16:38 APTT 29 SECONDS (21-34) 02/06/19 16:38 - Constitutional Appears: No Acute Distress - Head Exam Head Exam: NORMAL INSPECTION - Eye Exam Eye Exam: EOMI, PERRL - ENT Exam ENT Exam: Normal Oropharynx - Neck Exam Neck Exam: Normal Inspection - Respiratory Exam Respiratory Exam: Clear to Ausculation Bilateral, NORMAL BREATHING PATTERN - Cardiovascular Exam Cardiovascular Exam: REGULAR RHYTHM, +S1, +S2 - GI/Abdominal Exam GI & Abdominal Exam: Soft, Normal Bowel Sounds. absent: Organomegaly - Extremities Exam Extremities Exam: Normal Capillary Refill. absent: Calf Tenderness, Tenderness - Neurological Exam Neurological Exam: Alert, Awake, CN II-XII Intact, Oriented x3 - Psychiatric Exam Psychiatric exam: Normal Mood - Skin Skin Exam: Normal Color, Warm Assessment and Plan (1) Colitis Status: Acute (2) Proctitis Status: Acute (3) Rectal bleeding Status: Acute (4) Acute on chronic renal insufficiency Status: Acute - Assessment and Plan (Free Text) Plan: D/W MS GALLAGHER IMAGING CLERK continue flagyl 250 MG BY MOUTH 3 TIMES A DAY x 5 days and ceftin 250 BY MOUTH TWICE A DAY x 5 days patient instructed to returns to ED if symptoms returns or any other concerning symptoms the patient to follow-up with her primary care/and GI for procedure.
--- NOTE | 2019-02-11 12:24 | CP.PCM.DIS ---
Provider - Provider Date of Admission: 02/06/19 21:12 Attending physician: Alexandria Shin MD Consults: 02/07/19 08:00 Social Work Referral Routine Comment: W/DISPATCH OFFICER Physician Instructions: Reason For Exam: LIVES ALONE 02/07/19 11:54 Physician Consult Routine Comment: Consulting Provider: Faisal Silva Consulting Physician: Faisal Silva Reason for Consult: abdominal pain 02/09/19 12:07 Infectious Disease Consult Routine Comment: Consulting Provider: Sparkle Croft Consulting Physician: Sparkle Croft Reason for Consult: inf. diarrhea Time Spent in preparation of Discharge (in minutes): 35 Diagnosis - Discharge Diagnosis (1) Colitis Status: Acute (2) Proctitis Status: Acute (3) Arthralgia Status: Acute (4) Chronic kidney disease (CKD) Status: Acute Hospital Course - Lab Results Lab Results: Micro Results 02/06/19 17:05 Blood Blood Culture - Preliminary NO GROWTH AFTER 4 DAYS 02/06/19 16:25 Blood Blood Culture - Preliminary NO GROWTH AFTER 4 DAYS 02/07/19 12:30 Blood Blood Culture - Preliminary NO GROWTH AFTER 3 DAYS 02/07/19 13:00 Blood Blood Culture - Preliminary NO GROWTH AFTER 3 DAYS 02/06/19 21:41 Stool Ova and Parasite Concentrate Exam - Final 02/06/19 17:21 Urine Random Urine Culture - Final No Growth (<1,000 CFU/ML) Most Recent Lab Values WBC 8.6 K/uL (4.8-10.8) D 02/10/19 07:14 RBC 3.03 Mil/uL (3.80-5.20) L 02/10/19 07:14 Hgb 9.1 g/dL (11.0-16.0) L 02/10/19 07:14 Hct 26.6 % (34.0-47.0) L 02/10/19 07:14 MCV 87.8 fL (81.0-99.0) 02/10/19 07:14 MCH 30.1 pg (27.0-31.0) 02/10/19 07:14 MCHC 34.3 g/dL (33.0-37.0) 02/10/19 07:14 RDW 14.5 % (11.5-14.5) 02/10/19 07:14 Plt Count 132 K/uL (130-400) 02/10/19 07:14 MPV 11.8 fL (7.2-11.7) H 02/10/19 07:14 Neut % (Auto) 83.9 % (50.0-75.0) H 02/10/19 07:14 Lymph % (Auto) 7.0 % (20.0-40.0) L 02/10/19 07:14 [place] % (Auto) 8.2 % (0.0-10.0) 02/10/19 07:14 Eos % (Auto) 0.7 % (0.0-4.0) 02/10/19 07:14 Baso % (Auto) 0.2 % (0.0-2.0) 02/10/19 07:14 Neut # (Auto) 7.2 K/uL (1.8-7.0) H 02/10/19 07:14 Lymph # (Auto) 0.6 K/uL (1.0-4.3) L 02/10/19 07:14 [place] # (Auto) 0.7 K/uL (0.0-0.8) 02/10/19 07:14 Eos # (Auto) 0.1 K/uL (0.0-0.7) 02/10/19 07:14 Baso # (Auto) 0.0 K/uL (0.0-0.2) 02/10/19 07:14 Neutrophils % (Manual) 84 % (50-75) H 02/10/19 07:14 Band Neutrophils % 1 % (0-2) 02/10/19 07:14 Lymphocytes % (Manual) 7 % (20-40) L 02/10/19 07:14 Monocytes % (Manual) 8 % (0-10) 02/10/19 07:14 Platelet Estimate Normal (NORMAL) 02/10/19 07:14 Large Platelets Present 02/08/19 08:12 Giant Platelets Present 02/08/19 08:12 RBC Morphology Normal 02/10/19 07:14 Polychromasia Slight 02/08/19 08:12 Hypochromasia (manual) Slight 02/08/19 08:12 Poikilocytosis (manual Slight 02/07/19 07:47 Anisocytosis (manual) Slight 02/08/19 08:12 PT 11.6 SECONDS (9.7-12.2) 02/06/19 16:38 INR 1.1 02/06/19 16:38 APTT 29 SECONDS (21-34) 02/06/19 16:38 pO2 29 mm/Hg (30-55) L 02/06/19 16:40 VBG pH 7.44 (7.32-7.43) H 02/06/19 16:40 VBG pCO2 39 mmHg (40-60) L 02/06/19 16:40 VBG HCO3 25.7 mmol/L 02/06/19 16:40 VBG Total CO2 27.7 mmol/L (22-28) 02/06/19 16:40 VBG O2 Sat (Calc) 64.8 % (40-65) 02/06/19 16:40 VBG Base Excess 2.3 mmol/L (0.0-2.0) H 02/06/19 16:40 VBG Potassium 3.4 mmol/L (3.6-5.2) L 02/06/19 16:40 Sodium 142.0 mmol/l (132-148) 02/06/19 16:40 Chloride 108.0 mmol/L (98-107) H 02/06/19 16:40 Glucose 110 mg/dl (65-105) H 02/06/19 16:40 Lactate 1.1 mmol/L (0.7-2.1) 02/06/19 16:40 Sodium 137 mmol/L (132-148) 02/11/19 07:04 Potassium 3.7 mmol/L (3.6-5.2) 02/11/19 07:04 Chloride 105 mmol/L (98-107) 02/11/19 07:04 Carbon Dioxide 25 mmol/L (22-30) 02/11/19 07:04 Anion Gap 10 (10-20) 02/11/19 07:04 BUN 24 mg/dL (7-17) H 02/11/19 07:04 Creatinine 2.1 mg/dL (0.7-1.2) H 02/11/19 07:04 Est GFR ( Amer) 27 02/11/19 07:04 Est GFR (Non-Af Amer) 22 02/11/19 07:04 POC Glucose (mg/dL) 128 mg/dL (65-110) H 02/06/19 16:15 Random Glucose 95 mg/dL (65-105) 02/11/19 07:04 Calcium 8.9 mg/dl (8.6-10.4) 02/11/19 07:04 Total Bilirubin 0.6 mg/dL (0.2-1.3) 02/10/19 07:14 AST 21 U/L (14-36) 02/10/19 07:14 ALT 19 U/L (9-52) 02/10/19 07:14 Alkaline Phosphatase 52 U/L (38-126) 02/10/19 07:14 NT-Pro-B Natriuret Pep 5960 pg/mL (0-900) H 02/09/19 13:55 Total Protein 5.5 g/dL (6.3-8.3) L 02/10/19 07:14 Albumin 3.4 g/dL (3.5-5.0) L 02/10/19 07:14 Globulin 2.1 gm/dL (2.2-3.9) L 02/10/19 07:14 Albumin/Globulin Ratio 1.6 (1.0-2.1) 02/10/19 07:14 Lipase 98 U/L (23-300) 02/06/19 16:38 Venous Blood Potassium 3.4 mmol/L (3.6-5.2) L 02/06/19 16:40 Urine Color Yellow (YELLOW) 02/06/19 17:21 Urine Clarity Clear (Clear) 02/06/19 17:21 Urine pH 5.0 (5.0-8.0) 02/06/19 17:21 Ur Specific [place] 1.010 (1.003-1.030) 02/06/19 17:21 Urine Protein Negative mg/dL (NEGATIVE) 02/06/19 17:21 Urine Glucose (UA) Normal mg/dL (Normal) 02/06/19 17:21 Urine Ketones Negative mg/dL (NEGATIVE) 02/06/19 17:21 Urine Blood Negative (NEGATIVE) 02/06/19 17:21 Urine Nitrate Negative (NEGATIVE) 02/06/19 17:21 Urine Bilirubin Negative (NEGATIVE) 02/06/19 17:21 Urine Urobilinogen Normal mg/dL (0.2-1.0) 02/06/19 17:21 Ur Leukocyte Esterase Neg [place]/uL (Negative) 02/06/19 17:21 Urine WBC (Auto) < 1 /hpf (0-5) 02/06/19 17:21 Ur Squamous Epith Cells 2 /hpf (0-5) 02/06/19 17:21 Stool Occult Blood Negative (NEGATIVE) 02/07/19 20:08 Stool Leukocytes, Qual Negative (NEGATIVE) 02/06/19 21:41 RPR Nonreactive (NONREACTIVE) 02/10/19 07:14 C. difficile Ag & Toxin Negative (NEGATIVE) 02/06/19 21:41 Influenza Typ A,B (EIA) Negative for flu a/b (NEGATIVE) 02/06/19 16:38 - Hospital Course Hospital Course: 83 year old female, whose past medical history includes HTN and Hypercholesterolemia, presents to the ED for evaluation of fever which began today. Patient reports subjective fever, chills, generalized body aches, nausea and poor appetite which began today. She also reports feeling like she has to urinate more often than usual, but she usn't able to urinate much. Patient reports dysuria and seeing a slight amount of blood in her urine. She also complains of a headache. Patient reports back pain, CT SHOWED PANCOLITIS AND ILEITIS AND DIVERTICULOSIS GI/ID CONSULTED PT IMPROVED ON IV AB NO FURTHER PAIN LISA CHECK UP NEG PT REFUSED COLONOSCOPY PT D/C ON PO AB WILL F/U WITH GI OUT PT Discharge Exam - Head Exam Head Exam: ATRAUMATIC, NORMOCEPHALIC Discharge Plan - Follow Up Plan Condition: FAIR Disposition: HOME/ ROUTINE
[2019-02-11] MEDS: cefTRIAXone 1 gm 1 GM/100 ML BAG IVPB SCH (13:58)
[2019-02-11 16:37] VITALS: BP 132/71; PULSE 67; RESP 20; TEMP 98; O2SAT 95
== END 2019-02-11 17:25 | disposition home or self-care (01) | DRG 392 ==
LOC: C.ER 15:53 → C.9E 21:12 → C.3T 21:30 → C.6T 02-09 00:59
PROVIDERS: ADMIT Internal Medicine Cardiovascular Disease; ATTEND Internal Medicine Cardiovascular Disease
DX: K52.9 Noninfective gastroenteritis and colitis, unspecified (principal); I13.0 Hypertensive heart and chronic kidney disease with heart failure and stage 1 through stage 4 chronic kidney disease, or unspecified chronic kidney disease; K62.5 Hemorrhage of anus and rectum; K29.80 Duodenitis without bleeding; I50.9 Heart failure, unspecified; K62.89 Other specified diseases of anus and rectum; N18.9 Chronic kidney disease, unspecified; K64.8 Other hemorrhoids; D72.829 Elevated white blood cell count, unspecified

== ENCOUNTER 2019-03-26 07:15 | Day surgery (SDC) | payer MEDICARE, MEDICAID ==
[2019-03-26 07:34] VITALS: BMI 25.9
[2019-03-26] MEDS ORDERED: Lactated Ringer's 500 ML IV SCH (08:15)
[2019-03-26] MEDS ORDERED: Propofol 10 mg/ml Inj (20 ML) ONE (09:07)
[2019-03-26] MEDS ORDERED: Sodium Chloride 0.9% 500 ML IV SCH (09:15)
[2019-03-26 10:10] VITALS: TEMP 97.1
[2019-03-26 10:46] VITALS: BP 135/55; PULSE 70; RESP 16; O2SAT 99
== END 2019-03-26 11:10 | disposition home or self-care (01) ==
LOC: C.ENDO 07:15
PROVIDERS: ATTEND Internal Medicine Gastroenterology
DX: Z12.11 Encounter for screening for malignant neoplasm of colon (principal); Z80.0 Family history of malignant neoplasm of digestive organs; D12.5 Benign neoplasm of sigmoid colon; D12.3 Benign neoplasm of transverse colon; D12.2 Benign neoplasm of ascending colon; D12.4 Benign neoplasm of descending colon; K64.1 Second degree hemorrhoids; E78.00 Pure hypercholesterolemia, unspecified; I10 Essential (primary) hypertension; Z79.899 Other long term (current) drug therapy
CPT/HCPCS: 45380; 45385; 88305; J2001; J2704; J7040